=== PATIENT | female | born 1970 | race Two or more races ===

== ENCOUNTER 2017-11-26 17:26 | Inpatient (IN) | payer MEDICAID ==
[~2017-11-26] VITALS: Ht 154.9 cm; Wt 108.9 kg
[2017-11-26] MEDS ORDERED: NEXIUM40 MG ORAL (18:07)
[2017-11-26] MEDS ORDERED: XARELTO10 MG ORAL ×2 (18:07→18:45)
[2017-11-26] MEDS ORDERED: METOPROLOL TART50 M1 ORAL (18:07)
[2017-11-26] MEDS ORDERED: GABAPENTIN800 MG ORAL (18:07)
[2017-11-26] MEDS ORDERED: Morphine Sulfate 4mg/ml Inj IVP ONE ×2 (18:15→22:30)
[2017-11-26 18:30] VITALS: BP 103/88
[2017-11-26] MEDS ORDERED: GABAPENTIN400 MG ORAL (18:43)
[2017-11-26] MEDS ORDERED: TYLENOL EXTRA500 MG ORAL (18:46)
[2017-11-26 20:53] LABS: ALANINE AMINOTRANSFERASE 20 U/L (12-78); ALBUMIN 2.7 G/DL (3.4-5.0); ALBUMIN/GLOBULIN RATIO 0.7 (1.0-2.7); ALKALINE PHOSPHATASE 79 U/L (46-116); ANION GAP 12 mmol/L (5-15); ASPARTATE AMINO TRANSFERASE 59 U/L (15-37); BILIRUBIN,TOTAL 0.4 MG/DL (0.2-1.0); BLOOD UREA NITROGEN 13 mg/dL (7-18); CARBON DIOXIDE 22 MMOL/L (21-32); CHLORIDE 105 MMOL/L (98-107); CKMB < 0.5 NG/ML (0.0-3.6); CREATINE KINASE 175 U/L (26-308); CREATININE 0.7 MG/DL (0.55-1.30); SODIUM 138 MMOL/L (136-145)
[2017-11-26 20:55] LABS: POTASSIUM 5.9 MMOL/L (3.5-5.1)
[2017-11-26 21:00] VITALS: BP 105/85
[2017-11-26 21:01] LABS: BASOPHILS % (AUTO) 1.4 % (0.0-2.0); EOSINOPHILS % (AUTO) 2.5 % (0.0-3.0); HEMATOCRIT 31.4 % (37.0-47.0); HEMOGLOBIN 9.8 G/DL (12.0-16.0); MEAN CORPUSCULAR VOLUME 73 FL (80-99); MONOCYTES % (AUTO) 7.1 % (1.0-10.0); PLATELET COUNT 330 K/UL (150-450); RED BLOOD COUNT 4.29 M/UL (4.20-5.40); RED CELL DISTRIBUTION WIDTH 16.6 % (11.6-14.8); WHITE BLOOD COUNT 10.2 K/UL (4.8-10.8)
[2017-11-26] MEDS ORDERED: Zolpidem 5mg tab ORAL PRN (21:45)
[2017-11-26] MEDS ORDERED: Heparin 25,000u/D5W 500ml 500 ML IV SCH (21:45)
[2017-11-26] MEDS ORDERED: Mylanta II UD 30ml ORAL PRN (21:45)
[2017-11-26] MEDS ORDERED: Miralax 17gm pkt ORAL PRN (21:45)
[2017-11-26] MEDS ORDERED: LORazepam Inj 2mg/ml 1ml IV PRN (21:45)
[2017-11-26] MEDS ORDERED: Acetaminophen 500mg (ES) tab ORAL PRN (21:45)
--- NOTE | 2017-11-26 22:04 | Emergency Room Report ---
History of Present Illness General Chief Complaint: Pain Source: Patient Present Illness HPI 47-year-old female presents ED for evaluation. States she's been having chest pain and left calf pain for the last 5 days. Sharp, 05/31, nonradiating. Patient has history of DVT and PE. On Xarelto. States she is compliant with her medications. Patient recently moved here from [place] and does not have a PMD. No other aggravating relieving factors. Denies any other associated symptoms Allergies: Coded Allergies: AMOXICILLIN (Verified Allergy, Unknown, 11/26/17) ASPIRIN (Verified Allergy, Unknown, 11/26/17) AZITHROMYCIN (Verified Allergy, Unknown, 11/26/17) CEPHALEXIN (Verified Allergy, Unknown, 11/26/17) CLAVULANIC ACID (Verified Allergy, Unknown, 11/26/17) IBUPROFEN (Verified Allergy, Unknown, 11/26/17) NSAIDS (NON-STEROIDAL ANTI-INFLAMMA (Verified Allergy, Unknown, 11/26/17) TRAMADOL (Verified Allergy, Unknown, 11/26/17) Patient History Past Medical History: none Past Surgical History: none Pertinent Family History: none Social History: Denies: smoking, alcohol use, drug use Last Menstrual Period: Week and a half ago Now: No Immunizations: UTD Reviewed Nursing Documentation: PMH: Agreed, PSxH: Agreed Review of Systems All Other Systems: negative except mentioned in HPI Physical Exam Vital Signs Date Time Temp Pulse Resp B/P (MAP) Pulse Ox O2 Delivery O2 Flow Rate FiO2 11/26/17 17:34 97.9 98 18 116/83 100 Room Air Sp02 EP Interpretation: reviewed, normal General Appearance: no apparent distress, alert, GCS 15, non-toxic Head: normocephalic, atraumatic Eyes: bilateral eye normal inspection, bilateral eye PERRL ENT: hearing grossly normal, normal pharynx, no angioedema, normal voice Neck: full range of motion, supple/symm/no masses Respiratory: chest non-tender, lungs clear, normal breath sounds, speaking full sentences Cardiovascular #1: regular rate, rhythm, no edema Cardiovascular #2: 2+ carotid (R), 2+ carotid (L), 2+ radial (R), 2+ radial (L) , 2+ dorsalis pedis (R), 2+ dorsalis pedis (L) Gastrointestinal: normal bowel sounds, non tender, soft, non-distended, no guarding, no rebound Rectal: deferred Genitourinary: normal inspection, no CVA tenderness Musculoskeletal: back normal, gait/station normal, normal range of motion, non- tender Neurologic: alert, oriented x3, responsive, motor strength/tone normal, sensory intact, speech normal Psychiatric: judgement/insight normal, memory normal, mood/affect normal, no suicidal/homicidal ideation Reflexes: 3+ bicep (R), 3+ bicep (L), 3+ tricep (R), 3+ tricep (L), 3+ knee (R) , 3+ knee (L) Skin: normal color, no rash, warm/dry, well hydrated Lymphatic: no adenopathy Medical Decision Making Diagnostic Impression: Primary Impression: DVT (deep venous thrombosis) Qualified Codes: I82.402 - Acute embolism and thrombosis of unspecified deep veins of left lower extremity Additional Impression: Shortness of breath ER Course Hospital Course 47-year-old female presents ED complaining of SOB. LLE pain. h/o PE and DVT Differential diagnoses include: CO/unstable angina, PE, bronchitis, asthma Clinical course Patient placed on stretcher. on property assessment monitor. After initial history and physical I ordered labs, EKG, chest x-ray, LLE Doppler labs reviewed- no leukocytosis, hemoglobin/hematocrit stable, electrolytes ok, troponins negative Chest x-ray- LLL effusion EKG - NSR, no acute ischemic changes interpretd by me Doppler US shows evidence of acute and chronic DVT in LLE Patient unable to tolerate CTA Heparin drip started Case discussed with Dr. Worrell and he agreed to accept the patient to his service for further care and support I. I feel this is a highly complex case requiring extensive working including EKG/Rhythm strip, Xray/CT/US, Blood/urine lab work, repeat exams while in ED, and administration of strong opiates/narcotics for pain control, admission to hospital or close patient follow up. Diagnosis - DVT, SOB admitted to telemetry in serious condition Labs Test 11/26/17 19:55 11/26/17 20:50 Sodium Level 138 MMOL/L (136-145) Potassium Level 5.9 MMOL/L (3.5-5.1) Chloride Level 105 MMOL/L (98-107) Carbon Dioxide Level 22 MMOL/L (21-32) Anion Gap 12 mmol/L (5-15) Blood Urea Nitrogen 13 mg/dL (7-18) Creatinine 0.7 MG/DL (0.55-1.30) Estimat Glomerular Filtration Rate > 60 mL/min (>60) Glucose Level 80 MG/DL (74-106) Calcium Level 8.0 MG/DL (8.5-10.1) Total Bilirubin 0.4 MG/DL (0.2-1.0) Aspartate Amino Transf (AST/SGOT) 59 U/L (15-37) Alanine Aminotransferase (ALT/SGPT) 20 U/L (12-78) Alkaline Phosphatase 79 U/L (46-116) Total Creatine Kinase 175 U/L (26-308) Creatine Kinase MB < 0.5 NG/ML (0.0-3.6) Creatine Kinase MB Relative Index 0.2 Troponin I 0.000 ng/mL (0.000-0.056) Pro-B-Type Natriuretic Peptide 471 pg/mL (0-125) Total Protein 6.8 G/DL (6.4-8.2) Albumin 2.7 G/DL (3.4-5.0) Globulin 4.1 g/dL Albumin/Globulin Ratio 0.7 (1.0-2.7) White Blood Count 10.2 K/UL (4.8-10.8) Red Blood Count 4.29 M/UL (4.20-5.40) Hemoglobin 9.8 G/DL (12.0-16.0) Hematocrit 31.4 % (37.0-47.0) Mean Corpuscular Volume 73 FL (80-99) Mean Corpuscular Hemoglobin 22.9 PG (27.0-31.0) Mean Corpuscular Hemoglobin Concent 31.3 G/DL (32.0-36.0) Red Cell Distribution Width 16.6 % (11.6-14.8) Platelet Count 330 K/UL (150-450) Mean Platelet Volume 5.7 FL (6.5-10.1) Neutrophils (%) (Auto) 52.0 % (45.0-75.0) Lymphocytes (%) (Auto) 37.0 % (20.0-45.0) Monocytes (%) (Auto) 7.1 % (1.0-10.0) Eosinophils (%) (Auto) 2.5 % (0.0-3.0) Basophils (%) (Auto) 1.4 % (0.0-2.0) EKG Diagnostic Results Rate: normal Rhythm: NSR ST Segments: no acute changes ASA given to the pt in ED: No Rhythm Strip Diag. Results EP Interpretation: yes Rhythm: NSR, no PVC's, no ectopy Chest X-Ray Diagnostic Results Chest X-Ray Diagnostic Results : Chest X-Ray Ordered: Yes # of Views/Limited/Complete: 1 View Indication: Shortness of Breath EP Interpretation: Yes Interpretation: no pneumothorax, other - L sided effusion Impression: Other - L effusion Electronically Signed by: Electronically signed by Danny Chacon MD Last Vital Signs Date Time Temp Pulse Resp B/P (MAP) Pulse Ox O2 Delivery O2 Flow Rate FiO2 11/26/17 18:30 97.9 92 14 103/88 98 Room Air Status: improved Disposition: ADMITTED INPATIENT Condition: Serious Referrals: NOT CHOSEN BRIAN/,REFERRING (PCP) DANNY CHACON M.D. Nov 26, 2017 22:04
[2017-11-26 22:45] VITALS: BP 102/85
[2017-11-26 23:16] LABS: INR 0.9 (0.9-1.1)
[2017-11-27 00:30] VITALS: BP 136/89
[2017-11-27] MEDS ORDERED: Norco 5mg/325mg tab ORAL PRN (04:45)
[2017-11-27] MEDS: Morphine Sulfate 4mg/ml Inj IVP PRN ×5 (04:56→21:49)
[2017-11-27 08:00] VITALS: BP 107/70
[2017-11-27 08:53] LABS: BASOPHILS % (AUTO) 1.2 % (0.0-2.0); EOSINOPHILS % (AUTO) 4.4 % (0.0-3.0); HEMATOCRIT 27.7 % (37.0-47.0); HEMOGLOBIN 8.7 G/DL (12.0-16.0); MEAN CORPUSCULAR VOLUME 73 FL (80-99); MONOCYTES % (AUTO) 9.4 % (1.0-10.0); PLATELET COUNT 248 K/UL (150-450); RED BLOOD COUNT 3.77 M/UL (4.20-5.40); RED CELL DISTRIBUTION WIDTH 16.5 % (11.6-14.8); WHITE BLOOD COUNT 6.6 K/UL (4.8-10.8)
[2017-11-27] MEDS: Metoprolol Tartrate 50mg tab ORAL SCH (09:29)
--- NOTE | 2017-11-27 09:31 | Diagnostic Imaging Report ---
Indication: Chest pain, shortness of breath Technique: One view of the chest Comparison: None Findings: There is left perihilar, bilateral basilar, retrocardiac infiltrate. There is questionably retrocardiac hiatal hernia. The heart size is normal. Impression: Left lung infiltrates, likely pneumonia Possible retrocardiac hiatal hernia
[2017-11-27] MEDS: Heparin 25,000u/D5W 500ml 500 ML IV SCH ×3 (09:49→13:18)
[2017-11-27] MEDS ORDERED: Heparin 5000 units/ml inj IV ONE (10:00)
[2017-11-27 10:07] LABS: ALANINE AMINOTRANSFERASE 22 U/L (12-78); ALBUMIN 2.8 G/DL (3.4-5.0); ALBUMIN/GLOBULIN RATIO 0.7 (1.0-2.7); ALKALINE PHOSPHATASE 78 U/L (46-116); ANION GAP 9 mmol/L (5-15); ASPARTATE AMINO TRANSFERASE 19 U/L (15-37); BILIRUBIN,TOTAL 0.3 MG/DL (0.2-1.0); BLOOD UREA NITROGEN 10 mg/dL (7-18); CALCIUM 8.6 MG/DL (8.5-10.1); CARBON DIOXIDE 24 MMOL/L (21-32); CHLORIDE 104 MMOL/L (98-107); CHOLESTEROL 147 MG/DL (< 200); CREATININE 0.9 MG/DL (0.55-1.30); HDL CHOLESTEROL 56 MG/DL (40-60); SODIUM 137 MMOL/L (136-145); TRIGLYCERIDES 106 MG/DL (30-150)
--- NOTE | 2017-11-27 11:35 | Diagnostic Imaging Report ---
APPROVED REPORT CPT Code: 85467 Present Symptoms Comments: Technically difficult study due to patient body habitus. Thigh and calf area. Past History DVT : RIGHT LEG: Venous imaging reveals a patent deep venous system. There is no evidence of thrombus within the femoral, popliteal or tibial segments. The greater saphenous vein is also within normal limits. Doppler indicates normal spontaneous flow within these segments. LEFT LEG: Venous imaging reveals acute thrombus in the mid superficial femoral vein. Imaging also reveals chronic thrombus in the superficial femoral to popliteal veins. Large collateral vein noted anteriorto the superficial femoral artery. Remainder of the deep venous system within normal limits. No evidence of thrombus in the common and calf veins. Greater saphenous vein also within normal limits. Dr. Chacon was notified of abnormal results at 20.30 hours.
--- NOTE | 2017-11-27 13:02 | History and Physical ---
History of Present Illness General Date patient seen: Nov 27, 2017 Reason for Hospitalization: Pain Present Illness HPI 47-year-old female with hx of PE, DVT on Xarelto, presented to ED for evaluation of chest pain and left calf pain for the last 5 days. States she is compliant with her medications. No other aggravating relieving factors. Denies any other associated symptoms. Venous doppler of legs showed acute on chronic thrombus. She is admitted for further evaluation. Allergies: Coded Allergies: AMOXICILLIN (Verified Allergy, Unknown, 11/26/17) ASPIRIN (Verified Allergy, Unknown, 11/26/17) AZITHROMYCIN (Verified Allergy, Unknown, 11/26/17) CEPHALEXIN (Verified Allergy, Unknown, 11/26/17) CLAVULANIC ACID (Verified Allergy, Unknown, 11/26/17) IBUPROFEN (Verified Allergy, Unknown, 11/26/17) NSAIDS (NON-STEROIDAL ANTI-INFLAMMA (Verified Allergy, Unknown, 11/26/17) TRAMADOL (Verified Allergy, Unknown, 11/26/17) Medication History Scheduled Esomeprazole Magnesium (Nexium), 40 MG ORAL DAILY, (Reported) Gabapentin* (Gabapentin*), 1,200 MG ORAL THREE TIMES A DAY, (Reported) Metoprolol Tartrate* (Metoprolol Tartrate*), 50 MG ORAL DAILY, (Reported) Rivaroxaban (Xarelto*), 10 MG ORAL DAILY, (Reported) Scheduled PRN Acetaminophen* (Tylenol Extra Strength*), 1,000 MG ORAL Q6H PRN for Mild Pain/ Temp > 100.5, (Reported) Patient History Healthcare decision maker Resuscitation status Advanced Directive on File No Past Medical/Surgical History Past Medical/Surgical History: (1) DVT (deep venous thrombosis) Review of Systems All Other Systems: negative except mentioned in HPI Physical Exam General Appearance: WD/WN Lines, tubes and drains: peripheral HEENT: normocephalic, atraumatic Neck: non-tender, normal alignment Respiratory/Chest: chest wall non-tender, lungs clear Breasts: no masses Cardiovascular/Chest: normal peripheral pulses Abdomen: normal bowel sounds Last 24 Hour Vital Signs Date Time Temp Pulse Resp B/P (MAP) Pulse Ox O2 Delivery O2 Flow Rate FiO2 11/27/17 09:29 91 136/89 11/27/17 04:00 91 11/27/17 00:30 98.3 98 18 136/89 94 Room Air 11/26/17 23:45 95 16 102/85 98 Room Air 11/26/17 22:45 95 16 102/85 95 Room Air 11/26/17 21:00 95 14 105/85 96 Room Air 11/26/17 18:30 97.9 92 14 103/88 98 Room Air 11/26/17 17:34 97.9 98 18 116/83 100 Room Air Intake and Output 11/26/17 11/27/17 19:00 07:00 Intake Total 1333 ml Balance 1333 ml Intake Oral 1060 ml IV Total 273 ml # Voids 3 # Bowel Movements 1 Laboratory Tests Test 11/26/17 19:55 11/26/17 20:50 11/26/17 22:57 11/27/17 07:10 Sodium Level 138 MMOL/L (136-145) 137 MMOL/L (136-145) Potassium Level 5.9 MMOL/L (3.5-5.1) H 4.0 MMOL/L (3.5-5.1) Chloride Level 105 MMOL/L (98-107) 104 MMOL/L (98-107) Carbon Dioxide Level 22 MMOL/L (21-32) 24 MMOL/L (21-32) Anion Gap 12 mmol/L (5-15) 9 mmol/L (5-15) Blood Urea Nitrogen 13 mg/dL (7-18) 10 mg/dL (7-18) Creatinine 0.7 MG/DL (0.55-1.30) 0.9 MG/DL (0.55-1.30) Estimat Glomerular Filtration Rate > 60 mL/min (>60) > 60 mL/min (>60) Glucose Level 80 MG/DL (74-106) 104 MG/DL (74-106) Calcium Level 8.0 MG/DL (8.5-10.1) L 8.6 MG/DL (8.5-10.1) Total Bilirubin 0.4 MG/DL (0.2-1.0) 0.3 MG/DL (0.2-1.0) Aspartate Amino Transf (AST/SGOT) 59 U/L (15-37) H 19 U/L (15-37) Alanine Aminotransferase (ALT/SGPT) 20 U/L (12-78) 22 U/L (12-78) Alkaline Phosphatase 79 U/L (46-116) 78 U/L (46-116) Total Creatine Kinase 175 U/L (26-308) Creatine Kinase MB < 0.5 NG/ML (0.0-3.6) Creatine Kinase MB Relative Index 0.2 Troponin I 0.000 ng/mL (0.000-0.056) Pro-B-Type Natriuretic Peptide 471 pg/mL (0-125) H Total Protein 6.8 G/DL (6.4-8.2) 6.9 G/DL (6.4-8.2) Albumin 2.7 G/DL (3.4-5.0) L 2.8 G/DL (3.4-5.0) L Globulin 4.1 g/dL 4.1 g/dL Albumin/Globulin Ratio 0.7 (1.0-2.7) L 0.7 (1.0-2.7) L White Blood Count 10.2 K/UL (4.8-10.8) 6.6 K/UL (4.8-10.8) Red Blood Count 4.29 M/UL (4.20-5.40) 3.77 M/UL (4.20-5.40) L Hemoglobin 9.8 G/DL (12.0-16.0) L 8.7 G/DL (12.0-16.0) L Hematocrit 31.4 % (37.0-47.0) L 27.7 % (37.0-47.0) L Mean Corpuscular Volume 73 FL (80-99) L 73 FL (80-99) L Mean Corpuscular Hemoglobin 22.9 PG (27.0-31.0) L 23.1 PG (27.0-31.0) L Mean Corpuscular Hemoglobin Concent 31.3 G/DL (32.0-36.0) L 31.5 G/DL (32.0-36.0) L Red Cell Distribution Width 16.6 % (11.6-14.8) H 16.5 % (11.6-14.8) H Platelet Count 330 K/UL (150-450) 248 K/UL (150-450) Mean Platelet Volume 5.7 FL (6.5-10.1) L 5.4 FL (6.5-10.1) L Neutrophils (%) (Auto) 52.0 % (45.0-75.0) 36.0 % (45.0-75.0) L Lymphocytes (%) (Auto) 37.0 % (20.0-45.0) 49.0 % (20.0-45.0) H Monocytes (%) (Auto) 7.1 % (1.0-10.0) 9.4 % (1.0-10.0) Eosinophils (%) (Auto) 2.5 % (0.0-3.0) 4.4 % (0.0-3.0) H Basophils (%) (Auto) 1.4 % (0.0-2.0) 1.2 % (0.0-2.0) Prothrombin Time 9.7 SEC (9.30-11.50) Prothromb Time International Ratio 0.9 (0.9-1.1) Activated Partial Thromboplast Time 26 SEC (23-33) 45 SEC (23-33) H Triglycerides Level 106 MG/DL (30-150) Cholesterol Level 147 MG/DL (< 200) LDL Cholesterol 90 mg/dL (<100) HDL Cholesterol 56 MG/DL (40-60) Cholesterol/HDL Ratio 2.6 (3.3-4.4) L Height (Feet): 5 Height (Inches): 1.00 Weight (Pounds): 240 Medications Current Medications Medications (Trade) Dose Ordered Sig/Kike Route PRN Reason Start Time Stop Time Status Last Admin Dose Admin Acetaminophen (Tylenol) 1,000 mg Q6H PRN ORAL Mild Pain/Temp > 100.5 11/26/17 21:45 12/26/17 21:44 Acetaminophen/ Hydrocodone Bitart ([place] 5/325) 1 tab Q6H PRN ORAL pain 4-6 11/27/17 04:45 12/04/17 04:44 Al Hydroxide/Mg Hydroxide (Mylanta II) 30 ml Q6H PRN ORAL dyspepsia 11/26/17 21:45 12/26/17 21:44 Dextrose (Dextrose 50%) STAT PRN IV Hypoglycemia 11/26/17 21:45 12/26/17 21:44 Gabapentin (Neurontin) 1,200 mg THREE TIMES A DAY ORAL 11/27/17 09:00 12/27/17 08:59 11/27/17 09:28 Heparin Sodium/ Dextrose 500 ml @ 47.899 mls/ hr adjust per protocol IV 11/26/17 21:45 12/26/17 21:44 11/27/17 09:49 Iron Sucrose 100 mg/Sodium Chloride 60 ml @ 240 mls/hr BEDTIME IV 11/27/17 21:00 12/01/17 21:14 Lorazepam (Ativan 2mg/ml 1ml) 0.5 mg Q4H PRN IV For Anxiety 11/26/17 21:45 12/03/17 21:44 Metoprolol Tartrate (Lopressor) 50 mg DAILY ORAL 11/27/17 09:00 12/27/17 08:59 11/27/17 09:29 Morphine Sulfate (Morphine Sulfate) 4 mg Q4H PRN IVP 7-10 11/27/17 04:45 12/04/17 04:44 11/27/17 09:30 Ondansetron HCl (Zofran) 4 mg Q6H PRN IVP Nausea & Vomiting 11/26/17 21:45 12/26/17 21:44 Polyethylene Glycol (Miralax) 17 gm HSPRN PRN ORAL Constipation 11/26/17 21:45 12/26/17 21:44 Warfarin Sodium (Coumadin per pharmacy) 1 ea DAILY@1700 PRN MISC WARFARIN PER RX 11/27/17 10:45 12/27/17 10:44 Warfarin Sodium (Coumadin) 7.5 mg COUMADIN ONCE ORAL 11/27/17 17:00 11/27/17 17:01 Zolpidem Tartrate (Ambien) 5 mg HSPRN PRN ORAL Insomnia 11/26/17 21:45 12/03/17 21:44 Assessment/Plan Problem List: (1) DVT (deep venous thrombosis) ICD Codes: I82.409 - Acute embolism and thrombosis of unspecified deep veins of unspecified lower extremity SNOMED: [id number] Qualifiers: Qualified Codes: I82.402 - Acute embolism and thrombosis of unspecified deep veins of left lower extremity (2) Chest pain ICD Codes: R07.9 - Chest pain, unspecified SNOMED: [id number] Assessment/Plan CT angio to rule out PE cxr showed infiltrate. there is no WBC, no fever, will start the pt on abx and get some sputum Hematology to see, since pt failed Xarelto therapy. GORAN BROOKS Nov 27, 2017 13:02
--- NOTE | 2017-11-27 15:36 | Consultation ---
History of Present Illness General Date patient seen: Nov 27, 2017 Time patient seen: 15:36 Chief Complaint: Pain Present Illness HPI 47 y/o F with x of DVT/PE on xarelto presents to ED on 11/26 with 5 days of CP and L calf pain. V. duplex of legs showed acute on chronic thrombus. Of note, patient recently moved from [place]. +cough Allergies: Coded Allergies: AMOXICILLIN (Verified Allergy, Unknown, 11/26/17) ASPIRIN (Verified Allergy, Unknown, 11/26/17) AZITHROMYCIN (Verified Allergy, Unknown, 11/26/17) CEPHALEXIN (Verified Allergy, Unknown, 11/26/17) CLAVULANIC ACID (Verified Allergy, Unknown, 11/26/17) IBUPROFEN (Verified Allergy, Unknown, 11/26/17) NSAIDS (NON-STEROIDAL ANTI-INFLAMMA (Verified Allergy, Unknown, 11/26/17) TRAMADOL (Verified Allergy, Unknown, 11/26/17) Medication History Scheduled Esomeprazole Magnesium (Nexium), 40 MG ORAL DAILY, (Reported) Gabapentin* (Gabapentin*), 1,200 MG ORAL THREE TIMES A DAY, (Reported) Metoprolol Tartrate* (Metoprolol Tartrate*), 50 MG ORAL DAILY, (Reported) Rivaroxaban (Xarelto*), 10 MG ORAL DAILY, (Reported) Scheduled PRN Acetaminophen* (Tylenol Extra Strength*), 1,000 MG ORAL Q6H PRN for Mild Pain/ Temp > 100.5, (Reported) Patient History Healthcare decision maker Resuscitation status Advanced Directive on File No Patient History Narrative PMHx as above SHx: Denies: smoking, alcohol use, drug use FHx: non contributory Review of Systems All Other Systems: negative except mentioned in HPI Physical Exam Physical Exam Narrative General Appearance: WD/WN Lines, tubes and drains: peripheral HEENT: normocephalic, atraumatic Neck: non-tender, normal alignment Respiratory/Chest: chest wall non-tender, L lung crackles and ronchi Breasts: no masses Cardiovascular/Chest: normal peripheral pulses Abdomen: normal bowel sounds Last 24 Hour Vital Signs Date Time Temp Pulse Resp B/P (MAP) Pulse Ox O2 Delivery O2 Flow Rate FiO2 11/27/17 09:29 91 136/89 11/27/17 04:00 91 11/27/17 00:30 98.3 98 18 136/89 94 Room Air 11/26/17 23:45 95 16 102/85 98 Room Air 11/26/17 22:45 95 16 102/85 95 Room Air 11/26/17 21:00 95 14 105/85 96 Room Air 11/26/17 18:30 97.9 92 14 103/88 98 Room Air 11/26/17 17:34 97.9 98 18 116/83 100 Room Air Intake and Output 11/26/17 11/27/17 19:00 07:00 Intake Total 1333 ml Balance 1333 ml Intake Oral 1060 ml IV Total 273 ml # Voids 3 # Bowel Movements 1 Laboratory Tests Test 11/26/17 19:55 11/26/17 20:50 11/26/17 22:57 11/27/17 07:10 Sodium Level 138 MMOL/L (136-145) 137 MMOL/L (136-145) Potassium Level 5.9 MMOL/L (3.5-5.1) H 4.0 MMOL/L (3.5-5.1) Chloride Level 105 MMOL/L (98-107) 104 MMOL/L (98-107) Carbon Dioxide Level 22 MMOL/L (21-32) 24 MMOL/L (21-32) Anion Gap 12 mmol/L (5-15) 9 mmol/L (5-15) Blood Urea Nitrogen 13 mg/dL (7-18) 10 mg/dL (7-18) Creatinine 0.7 MG/DL (0.55-1.30) 0.9 MG/DL (0.55-1.30) Estimat Glomerular Filtration Rate > 60 mL/min (>60) > 60 mL/min (>60) Glucose Level 80 MG/DL (74-106) 104 MG/DL (74-106) Calcium Level 8.0 MG/DL (8.5-10.1) L 8.6 MG/DL (8.5-10.1) Total Bilirubin 0.4 MG/DL (0.2-1.0) 0.3 MG/DL (0.2-1.0) Aspartate Amino Transf (AST/SGOT) 59 U/L (15-37) H 19 U/L (15-37) Alanine Aminotransferase (ALT/SGPT) 20 U/L (12-78) 22 U/L (12-78) Alkaline Phosphatase 79 U/L (46-116) 78 U/L (46-116) Total Creatine Kinase 175 U/L (26-308) Creatine Kinase MB < 0.5 NG/ML (0.0-3.6) Creatine Kinase MB Relative Index 0.2 Troponin I 0.000 ng/mL (0.000-0.056) Pro-B-Type Natriuretic Peptide 471 pg/mL (0-125) H Total Protein 6.8 G/DL (6.4-8.2) 6.9 G/DL (6.4-8.2) Albumin 2.7 G/DL (3.4-5.0) L 2.8 G/DL (3.4-5.0) L Globulin 4.1 g/dL 4.1 g/dL Albumin/Globulin Ratio 0.7 (1.0-2.7) L 0.7 (1.0-2.7) L White Blood Count 10.2 K/UL (4.8-10.8) 6.6 K/UL (4.8-10.8) Red Blood Count 4.29 M/UL (4.20-5.40) 3.77 M/UL (4.20-5.40) L Hemoglobin 9.8 G/DL (12.0-16.0) L 8.7 G/DL (12.0-16.0) L Hematocrit 31.4 % (37.0-47.0) L 27.7 % (37.0-47.0) L Mean Corpuscular Volume 73 FL (80-99) L 73 FL (80-99) L Mean Corpuscular Hemoglobin 22.9 PG (27.0-31.0) L 23.1 PG (27.0-31.0) L Mean Corpuscular Hemoglobin Concent 31.3 G/DL (32.0-36.0) L 31.5 G/DL (32.0-36.0) L Red Cell Distribution Width 16.6 % (11.6-14.8) H 16.5 % (11.6-14.8) H Platelet Count 330 K/UL (150-450) 248 K/UL (150-450) Mean Platelet Volume 5.7 FL (6.5-10.1) L 5.4 FL (6.5-10.1) L Neutrophils (%) (Auto) 52.0 % (45.0-75.0) 36.0 % (45.0-75.0) L Lymphocytes (%) (Auto) 37.0 % (20.0-45.0) 49.0 % (20.0-45.0) H Monocytes (%) (Auto) 7.1 % (1.0-10.0) 9.4 % (1.0-10.0) Eosinophils (%) (Auto) 2.5 % (0.0-3.0) 4.4 % (0.0-3.0) H Basophils (%) (Auto) 1.4 % (0.0-2.0) 1.2 % (0.0-2.0) Prothrombin Time 9.7 SEC (9.30-11.50) Prothromb Time International Ratio 0.9 (0.9-1.1) Activated Partial Thromboplast Time 26 SEC (23-33) 45 SEC (23-33) H Triglycerides Level 106 MG/DL (30-150) Cholesterol Level 147 MG/DL (< 200) LDL Cholesterol 90 mg/dL (<100) HDL Cholesterol 56 MG/DL (40-60) Cholesterol/HDL Ratio 2.6 (3.3-4.4) L Height (Feet): 5 Height (Inches): 1.00 Weight (Pounds): 240 Medications Current Medications Medications (Trade) Dose Ordered Sig/Kike Route PRN Reason Start Time Stop Time Status Last Admin Dose Admin Acetaminophen (Tylenol) 1,000 mg Q6H PRN ORAL Mild Pain/Temp > 100.5 11/26/17 21:45 12/26/17 21:44 Acetaminophen/ Hydrocodone Bitart ([place] 5/325) 1 tab Q6H PRN ORAL pain 4-6 11/27/17 04:45 12/04/17 04:44 Al Hydroxide/Mg Hydroxide (Mylanta II) 30 ml Q6H PRN ORAL dyspepsia 11/26/17 21:45 12/26/17 21:44 Dextrose (Dextrose 50%) STAT PRN IV Hypoglycemia 11/26/17 21:45 12/26/17 21:44 Gabapentin (Neurontin) 1,200 mg THREE TIMES A DAY ORAL 11/27/17 09:00 12/27/17 08:59 11/27/17 13:09 Heparin Sodium/ Dextrose 500 ml @ 47.899 mls/ hr adjust per protocol IV 11/26/17 21:45 12/26/17 21:44 11/27/17 13:18 Iron Sucrose 100 mg/Sodium Chloride 60 ml @ 240 mls/hr BEDTIME IV 11/27/17 21:00 12/01/17 21:14 Levofloxacin 100 ml @ 100 mls/hr Q24H IVPB 11/27/17 14:00 12/04/17 13:59 11/27/17 15:09 Lorazepam (Ativan 2mg/ml 1ml) 0.5 mg Q4H PRN IV For Anxiety 11/26/17 21:45 12/03/17 21:44 Metoprolol Tartrate (Lopressor) 50 mg DAILY ORAL 11/27/17 09:00 12/27/17 08:59 11/27/17 09:29 Morphine Sulfate (Morphine Sulfate) 4 mg Q4H PRN IVP 7-10 11/27/17 04:45 12/04/17 04:44 11/27/17 13:11 Ondansetron HCl (Zofran) 4 mg Q6H PRN IVP Nausea & Vomiting 11/26/17 21:45 12/26/17 21:44 Polyethylene Glycol (Miralax) 17 gm HSPRN PRN ORAL Constipation 11/26/17 21:45 12/26/17 21:44 Warfarin Sodium (Coumadin per pharmacy) 1 ea DAILY@1700 PRN MISC WARFARIN PER RX 11/27/17 10:45 12/27/17 10:44 Warfarin Sodium (Coumadin) 7.5 mg COUMADIN ONCE ORAL 11/27/17 17:00 11/27/17 17:01 Zolpidem Tartrate (Ambien) 5 mg HSPRN PRN ORAL Insomnia 11/26/17 21:45 12/03/17 21:44 Assessment/Plan Assessment/Plan Abx: Levaquin 11/27- Assessment: Acute on chronic L DVT -v/ duplex: RIGHT LEG: No DVT. LEFT LEG: Venous imaging reveals acute thrombus in the mid superficial femoral vein. Imaging also reveals chronic thrombus in the superficial femoral to popliteal veins. Large collateral vein noted anteriorto the superficial femoral artery. Remainder of the deep venous system within normal limits. No evidence of thrombus in the common and calf veins. Greater saphenous vein also within normal limits. PNA -CXR: Left lung infiltrates, likely pneumonia. Possible retrocardiac hiatal hernia Afebrile, no leukocytosis hx of DVT/PE on xarelto Plan: -Continue levaquin #1/5 -f/u cx -[place] CBC/BMP, temperatures Thank you for this consultation. Will continue to follow along with you. Discussed with MARY ALICE. Amanda Adams M.D. Nov 27, 2017 15:36
[2017-11-27 16:41] LABS: FERRITIN 11 NG/ML (8-388); LACTATE DEHYDROGENASE 186 U/L (81-234)
[2017-11-27] MEDS ORDERED: Warfarin Sodium 7.5mg ORAL ONE (17:00)
[2017-11-27 17:27] LABS: % IRON SATURATION 6 % (15-50); IRON 22 ug/dL (50-175); TOTAL IRON BINDING CAPACITY 356 ug/dL (250-450)
[2017-11-27] MEDS ORDERED: Heparin 25,000u/D5W 500ml 500 ML IV SCH (18:05)
[2017-11-27 20:00] VITALS: BP 95/55
[2017-11-27] MEDS: Iron Sucrose 100 MG in NS 55 ML IV SCH (20:50)
--- NOTE | 2017-11-27 22:30 | Consultation ---
DATE OF CONSULTATION: 11/27/2017 HEMATOLOGY/ONCOLOGY CONSULTATION CONSULTING PHYSICIAN: Herberth Manzanares M.D. REQUESTING PHYSICIAN: Mich Worrell M.D. REASON FOR CONSULTATION: Evaluation of anemia as well as history of DVT as well as pulmonary embolism. IDENTIFYING DATA: Dear Dr. Worrell, The patient is a pleasant 47-year-old female with past medical history significant for pulmonary embolism and DVT, at this time presents with left lower extremity pain as well as shortness of breath and in the ER, she was noted to have chest pain for the past several days. There is a history of DVT and pulmonary embolism and has been on Coumadin. She states that she has been compliant on her medications. She recently moved from does not have a PMD, and no alleviating or aggravating features noted. Hematology service was consulted for further evaluation and treatment. PAST MEDICAL HISTORY: As noted above. PAST SURGICAL HISTORY: None reported. ALLERGIES: Amoxicillin, aspirin, Zithromax, Keflex, . SOCIAL HISTORY: No alcohol, tobacco, or illicit drug use. Last menstrual period approximately week and a half ago. FAMILY HISTORY: Noncontributory for any . REVIEW OF SYSTEMS: CONSTITUTIONAL: No fever, chills, or night sweats. SKIN: No rashes, bumps, or itching. HEENT: No headache, hearing or vision changes. BREASTS: No lumps, pain, or discharge. PULMONARY: No cough, sputum, or shortness of breath. GASTROINTESTINAL: No nausea, vomiting, or diarrhea. GENITOURINARY: No dysuria, frequency, or urgency. MUSCULOSKELETAL: No joint swelling, muscle pain, or trauma. PHYSICAL EXAMINATION: VITAL SIGNS: Reviewed. GENERAL: The patient is in no acute distress. PULMONARY: Decreased breath sounds. CARDIOVASCULAR: Regular rate. No S3 or S4. ABDOMEN: Soft, nontender, and nondistended. EXTREMITIES: A 1+ edema. LABORATORY DATA: PTT . BUN 10 and creatinine . ASSESSMENT AND PLAN: 1. Acute deep venous thrombosis of the left lower extremity. Begin the patient on heparin drip as well as Coumadin. The patient at this time appeared to have progressed on Xarelto. This is a fairly common finding. At this time, continue the patient on heparin as well as Coumadin. Closely monitor the patient's anemia to make sure if the patient does not have a contraindication for anticoagulation. Again, closely monitor the patient's anemia to make sure if the patient does not have a contraindication for anticoagulation. 2. Pulmonary embolism history. She has been on Xarelto, currently progressed. Begin the patient on Coumadin and heparin. 3. Anemia due to underlying chronic disease. 4. Anemia due to likely iron deficiency. Begin workup likely iron deficiency. 5. Shortness of breath likely due to history of anxiety as well as history of pulmonary embolism. 6. Coagulopathy due to heparin drip. 7. Bronchitis. 8. Asthma. I appreciate the consultation. Herberth Manzanares M.D. DR: SHRUTI JOB#: [id number] CC:
[2017-11-28] VITALS: BP 112/66
[2017-11-28] MEDS: Morphine Sulfate 4mg/ml Inj IVP PRN ×6 (01:53→22:28)
[2017-11-28] MEDS ORDERED: Heparin 5000 units/ml inj IV ONE (02:15)
[2017-11-28] MEDS: Heparin 25,000u/D5W 500ml 500 ML IV SCH ×2 (02:15→13:58)
[2017-11-28 04:00] VITALS: BP_SYST 112; BP_SYST 98; BP_DIAS 61; BP_DIAS 68
[2017-11-28 08:00] VITALS: BP 123/68
[2017-11-28] MEDS: Metoprolol Tartrate 50mg tab ORAL SCH (09:25)
--- NOTE | 2017-11-28 13:12 | Pulmonology Progress Note ---
Assessment/Plan Problems: (1) DVT (deep venous thrombosis) (2) Chest pain Assessment/Plan on coumadin and heparin doing better dc planning once inr is therapeutic Subjective ROS Limited/Unobtainable: No Allergies: Coded Allergies: AMOXICILLIN (Verified Allergy, Unknown, 11/26/17) ASPIRIN (Verified Allergy, Unknown, 11/26/17) AZITHROMYCIN (Verified Allergy, Unknown, 11/26/17) CEPHALEXIN (Verified Allergy, Unknown, 11/26/17) CLAVULANIC ACID (Verified Allergy, Unknown, 11/26/17) IBUPROFEN (Verified Allergy, Unknown, 11/26/17) NSAIDS (NON-STEROIDAL ANTI-INFLAMMA (Verified Allergy, Unknown, 11/26/17) TRAMADOL (Verified Allergy, Unknown, 11/26/17) Objective Last 24 Hour Vital Signs Date Time Temp Pulse Resp B/P (MAP) Pulse Ox O2 Delivery O2 Flow Rate FiO2 11/28/17 09:25 91 123/68 11/28/17 08:00 90 11/28/17 08:00 97.6 97 22 123/68 97 Room Air 11/28/17 04:00 98.2 87 20 98/68 94 Room Air 11/28/17 04:00 91 11/28/17 00:00 93 11/28/17 00:00 98.1 79 18 112/66 95 Room Air 11/27/17 20:00 92 11/27/17 20:00 97.9 96 20 95/55 95 Room Air 11/27/17 16:00 102 Intake and Output 11/27/17 11/28/17 19:00 07:00 Intake Total 480 ml 610.130 ml Balance 480 ml 610.130 ml Intake Oral 480 ml IV Total 610.130 ml # Voids 3 2 Objective General Appearance: WD/WN, other - obtunded Lines, tubes and drains: peripheral HEENT: normocephalic, atraumatic Neck: non-tender, normal alignment Respiratory/Chest: chest wall non-tender, lungs clear Breasts: no masses, no discharge Cardiovascular/Chest: normal peripheral pulses Abdomen: normal bowel sounds Genitourinary/Rectal: normal genital exam Extremities: normal range of motion Skin Exam: normal pigmentation Neurologic: roguer II-XII grossly normal Laboratory Tests 11/27/17 15:15: Reticulocyte Count 1.0, Activated Partial Thromboplast Time > 150*H, Uric Acid 7.2, Iron Level 22L, Total Iron Binding Capacity 356, Percent Iron Saturation 6L , Unsaturated Iron Binding 334, Soluble Transferrin Receptor [Pending], Ferritin 11, Lactate Dehydrogenase 186, Vitamin B12 Level 423, Folate 11.4, Thyroid Stimulating Hormone (TSH) 3.625, Human Chorionic Gonadotropin, Qual Negative 11/28/17 01:05: Activated Partial Thromboplast Time 63H 11/28/17 08:38: Activated Partial Thromboplast Time 78H, Prothrombin Time 10.4, Prothromb Time International Ratio 1.0 Current Medications Medications (Trade) Dose Ordered Sig/Kike Route PRN Reason Start Time Stop Time Status Last Admin Dose Admin Acetaminophen (Tylenol) 1,000 mg Q6H PRN ORAL Mild Pain/Temp > 100.5 11/26/17 21:45 12/26/17 21:44 Acetaminophen/ Hydrocodone Bitart ([place] 5/325) 1 tab Q6H PRN ORAL pain 4-6 11/27/17 04:45 12/04/17 04:44 Al Hydroxide/Mg Hydroxide (Mylanta II) 30 ml Q6H PRN ORAL dyspepsia 11/26/17 21:45 12/26/17 21:44 Dextrose (Dextrose 50%) STAT PRN IV Hypoglycemia 11/26/17 21:45 12/26/17 21:44 Gabapentin (Neurontin) 1,200 mg THREE TIMES A DAY ORAL 11/27/17 09:00 12/27/17 08:59 11/28/17 09:24 Heparin Sodium/ Dextrose 500 ml @ 43.545 mls/ hr adjust per protocol IV 11/28/17 02:15 12/27/17 18:04 11/28/17 02:15 Iron Sucrose 100 mg/Sodium Chloride 60 ml @ 240 mls/hr BEDTIME IV 11/27/17 21:00 12/01/17 21:14 11/27/17 20:50 Levofloxacin 100 ml @ 100 mls/hr Q24H IVPB 11/27/17 14:00 12/04/17 13:59 11/27/17 15:09 Lorazepam (Ativan 2mg/ml 1ml) 0.5 mg Q4H PRN IV For Anxiety 11/26/17 21:45 12/03/17 21:44 Metoprolol Tartrate (Lopressor) 50 mg DAILY ORAL 11/27/17 09:00 12/27/17 08:59 11/28/17 09:25 Morphine Sulfate (Morphine Sulfate) 4 mg Q4H PRN IVP 7-10 11/27/17 04:45 12/04/17 04:44 11/28/17 10:01 Ondansetron HCl (Zofran) 4 mg Q6H PRN IVP Nausea & Vomiting 11/26/17 21:45 12/26/17 21:44 Pantoprazole (Protonix) 40 mg DAILY ORAL 11/28/17 09:45 12/28/17 09:44 11/28/17 10:00 Polyethylene Glycol (Miralax) 17 gm HSPRN PRN ORAL Constipation 11/26/17 21:45 12/26/17 21:44 Warfarin Sodium (Coumadin per pharmacy) 1 ea DAILY@1700 PRN MISC WARFARIN PER RX 11/27/17 10:45 12/27/17 10:44 Warfarin Sodium (Coumadin) 7.5 mg COUMADIN ONCE ORAL 11/28/17 17:00 11/28/17 17:01 Zolpidem Tartrate (Ambien) 5 mg HSPRN PRN ORAL Insomnia 11/26/17 21:45 12/03/17 21:44 GORAN BROOKS Nov 28, 2017 13:12
--- NOTE | 2017-11-28 13:34 | Infectious Diseases Prog Note ---
Assessment/Plan Assessment/Plan Abx: Levaquin 2/- Assessment: Acute on chronic L DVT -v/ duplex: RIGHT LEG: No DVT. LEFT LEG: Venous imaging reveals acute thrombus in the mid superficial femoral vein. Imaging also reveals chronic thrombus in the superficial femoral to popliteal veins. Large collateral vein noted anteriorto the superficial femoral artery. Remainder of the deep venous system within normal limits. No evidence of thrombus in the common and calf veins. Greater saphenous vein also within normal limits. L lung infiltrates- likely PNA (+cough) ;r/o PE -CXR: Left lung infiltrates, likely pneumonia. Possible retrocardiac hiatal hernia Afebrile, no leukocytosis hx of DVT/PE on xarelto Plan: -Continue LEvaquin #2/5 for PNA -f/u CTA Chest -obtain sputum cx -f/u cx -[place] CBC/BMP, temperatures Thank you for this consultation. Will continue to follow along with you. Discussed with RN. Subjective Allergies: Coded Allergies: AMOXICILLIN (Verified Allergy, Unknown, 11/26/17) ASPIRIN (Verified Allergy, Unknown, 11/26/17) AZITHROMYCIN (Verified Allergy, Unknown, 11/26/17) CEPHALEXIN (Verified Allergy, Unknown, 11/26/17) CLAVULANIC ACID (Verified Allergy, Unknown, 11/26/17) IBUPROFEN (Verified Allergy, Unknown, 11/26/17) NSAIDS (NON-STEROIDAL ANTI-INFLAMMA (Verified Allergy, Unknown, 11/26/17) TRAMADOL (Verified Allergy, Unknown, 11/26/17) Subjective afebrile coughing. Objective Vital Signs Last 24 Hour Vital Signs Date Time Temp Pulse Resp B/P (MAP) Pulse Ox O2 Delivery O2 Flow Rate FiO2 11/28/17 09:25 91 123/68 11/28/17 08:00 90 11/28/17 08:00 97.6 97 22 123/68 97 Room Air 11/28/17 04:00 98.2 87 20 98/68 94 Room Air 11/28/17 04:00 91 11/28/17 00:00 93 11/28/17 00:00 98.1 79 18 112/66 95 Room Air 11/27/17 20:00 92 11/27/17 20:00 97.9 96 20 95/55 95 Room Air 11/27/17 16:00 102 Height (Feet): 5 Height (Inches): 1.00 Weight (Pounds): 240 Objective General Appearance: WD/WN Lines, tubes and drains: peripheral HEENT: normocephalic, atraumatic Neck: non-tender, normal alignment Respiratory/Chest: chest wall non-tender, L lung crackles.ronchi Breasts: no masses Cardiovascular/Chest: normal peripheral pulses Abdomen: normal bowel sounds Laboratory Tests Test 11/27/17 15:15 11/28/17 01:05 11/28/17 08:38 Reticulocyte Count 1.0 % (0.0-2.0) Activated Partial Thromboplast Time > 150 SEC (23-33) *H 63 SEC (23-33) H 78 SEC (23-33) H Uric Acid 7.2 MG/DL (2.6-7.2) Iron Level 22 ug/dL (50-175) L Total Iron Binding Capacity 356 ug/dL (250-450) Percent Iron Saturation 6 % (15-50) L Unsaturated Iron Binding 334 ug/dL (112-346) Soluble Transferrin Receptor Pending Ferritin 11 NG/ML (8-388) Lactate Dehydrogenase 186 U/L (81-234) Vitamin B12 Level 423 PG/ML (193-986) Folate 11.4 NG/ML (8.6-58.9) Thyroid Stimulating Hormone (TSH) 3.625 uiU/mL (0.358-3.740) Human Chorionic Gonadotropin, Qual Negative Prothrombin Time 10.4 SEC (9.30-11.50) Prothromb Time International Ratio 1.0 (0.9-1.1) Current Medications Medications (Trade) Dose Ordered Sig/Kike Route PRN Reason Start Time Stop Time Status Last Admin Dose Admin Acetaminophen (Tylenol) 1,000 mg Q6H PRN ORAL Mild Pain/Temp > 100.5 11/26/17 21:45 12/26/17 21:44 Acetaminophen/ Hydrocodone Bitart ([place] 5/325) 1 tab Q6H PRN ORAL pain 4-6 11/27/17 04:45 12/04/17 04:44 Al Hydroxide/Mg Hydroxide (Mylanta II) 30 ml Q6H PRN ORAL dyspepsia 11/26/17 21:45 12/26/17 21:44 Dextrose (Dextrose 50%) STAT PRN IV Hypoglycemia 11/26/17 21:45 12/26/17 21:44 Gabapentin (Neurontin) 1,200 mg THREE TIMES A DAY ORAL 11/27/17 09:00 12/27/17 08:59 11/28/17 09:24 Heparin Sodium/ Dextrose 500 ml @ 43.545 mls/ hr adjust per protocol IV 11/28/17 02:15 12/27/17 18:04 11/28/17 02:15 Iron Sucrose 100 mg/Sodium Chloride 60 ml @ 240 mls/hr BEDTIME IV 11/27/17 21:00 12/01/17 21:14 11/27/17 20:50 Levofloxacin 100 ml @ 100 mls/hr Q24H IVPB 11/27/17 14:00 12/04/17 13:59 11/27/17 15:09 Lorazepam (Ativan 2mg/ml 1ml) 0.5 mg Q4H PRN IV For Anxiety 11/26/17 21:45 12/03/17 21:44 Metoprolol Tartrate (Lopressor) 50 mg DAILY ORAL 11/27/17 09:00 12/27/17 08:59 11/28/17 09:25 Morphine Sulfate (Morphine Sulfate) 4 mg Q4H PRN IVP 7-10 11/27/17 04:45 12/04/17 04:44 11/28/17 10:01 Ondansetron HCl (Zofran) 4 mg Q6H PRN IVP Nausea & Vomiting 11/26/17 21:45 12/26/17 21:44 Pantoprazole (Protonix) 40 mg DAILY ORAL 11/28/17 09:45 12/28/17 09:44 11/28/17 10:00 Polyethylene Glycol (Miralax) 17 gm HSPRN PRN ORAL Constipation 11/26/17 21:45 12/26/17 21:44 Warfarin Sodium (Coumadin per pharmacy) 1 ea DAILY@1700 PRN MISC WARFARIN PER RX 11/27/17 10:45 12/27/17 10:44 Warfarin Sodium (Coumadin) 7.5 mg COUMADIN ONCE ORAL 11/28/17 17:00 11/28/17 17:01 Zolpidem Tartrate (Ambien) 5 mg HSPRN PRN ORAL Insomnia 11/26/17 21:45 12/03/17 21:44 Amanda Adams M.D. Nov 28, 2017 13:34
[2017-11-28] MEDS ORDERED: Warfarin Sodium 7.5mg ORAL ONE (17:00)
--- NOTE | 2017-11-28 17:33 | Cardiology Report ---
APPROVED REPORT EKG Measurement Heart [id number] Normal sinus rhythm Normal ECG
[2017-11-28 20:00] VITALS: BP 103/59
[2017-11-28] MEDS: Iron Sucrose 100 MG in NS 55 ML IV SCH (23:01)
--- NOTE | 2017-11-29 00:06 | General Progress Note ---
Assessment/Plan Assessment/Plan 1. Acute deep venous thrombosis of the left lower extremity. --> Begin the patient on heparin drip as well as Coumadin. -->The patient at this time appeared to have progressed on Xarelto. This is a fairly common finding. --> At this time, continue the patient on heparin as well as Coumadin. --> Closely monitor the patient's anemia to make sure if the patient does not have a contraindication for anticoagulation. 2. Pulmonary embolism history. --> She has been on Xarelto, currently progressed. Begin the patient on Coumadin and heparin. --> Again monitor closely for contraindication for anticoag. 3. Anemia due to underlying chronic disease. --> Blood transfusion not required unless symptomatic or hgb <7 4. Anemia due to likely iron deficiency. --> Begin workup likely iron deficiency. 5. Shortness of breath likely due to history of anxiety as well as history of pulmonary embolism. 6. Coagulopathy due to heparin drip. 7. Bronchitis. 8. Asthma. Subjective Date patient seen: Nov 28, 2017 Constitutional: Denies: no symptoms, chills, diaphoresis, fever, malaise, weakness, other HEENT: Denies: no symptoms, eye pain, blurred vision, tearing, double vision, ear pain, ear discharge, nose pain, nose congestion, throat pain, throat swelling, mouth pain, mouth swelling, other Cardiovascular: Denies: no symptoms, chest pain, edema, irregular heart rate, lightheadedness, palpitations, syncope, other Respiratory: Denies: no symptoms, cough, orthopnea, shortness of breath, SOB with excertion, SOB at rest, sputum, stridor, wheezing, other Gastrointestinal/Abdominal: Denies: no symptoms, abdomen distended, abdominal pain, black stools, tarry stools, blood in stool, constipated, diarrhea, difficulty swallowing, nausea, poor appetite, poor fluid intake, rectal bleeding , vomiting, other Genitourinary: Denies: no symptoms, burning, discharge, frequency, flank pain, hematuria, incontinence, pain, urgency, other Allergies: Coded Allergies: AMOXICILLIN (Verified Allergy, Unknown, 11/26/17) ASPIRIN (Verified Allergy, Unknown, 11/26/17) AZITHROMYCIN (Verified Allergy, Unknown, 11/26/17) CEPHALEXIN (Verified Allergy, Unknown, 11/26/17) CLAVULANIC ACID (Verified Allergy, Unknown, 11/26/17) IBUPROFEN (Verified Allergy, Unknown, 11/26/17) NSAIDS (NON-STEROIDAL ANTI-INFLAMMA (Verified Allergy, Unknown, 11/26/17) TRAMADOL (Verified Allergy, Unknown, 11/26/17) Subjective On anticoagulation measures for DVT. NAD. Objective Last 24 Hour Vital Signs Date Time Temp Pulse Resp B/P (MAP) Pulse Ox O2 Delivery O2 Flow Rate FiO2 11/28/17 16:00 85 11/28/17 12:00 82 11/28/17 09:25 91 123/68 11/28/17 08:00 90 11/28/17 08:00 97.6 97 22 123/68 97 Room Air 11/28/17 04:00 98.2 87 20 98/68 94 Room Air 11/28/17 04:00 91 Intake and Output 11/28/17 11/29/17 19:00 07:00 Intake Total 860 ml Balance 860 ml Intake Oral 860 ml Laboratory Tests 11/28/17 01:05: Activated Partial Thromboplast Time 63H 11/28/17 08:38: Activated Partial Thromboplast Time 78H, Prothrombin Time 10.4, Prothromb Time International Ratio 1.0 Height (Feet): 5 Height (Inches): 1.00 Weight (Pounds): 240 Herberth Manzanares Nov 29, 2017 00:06
[2017-11-29] MEDS: Morphine Sulfate 4mg/ml Inj IVP PRN ×6 (02:34→22:57)
[2017-11-29] MEDS: Heparin 25,000u/D5W 500ml 500 ML IV SCH ×2 (02:34→14:20)
[2017-11-29 04:00] VITALS: BP 123/74
[2017-11-29 07:45] VITALS: BP 114/74
[2017-11-29] MEDS: Metoprolol Tartrate 50mg tab ORAL SCH (08:03)
[2017-11-29 09:11] LABS: BASOPHILS % (AUTO) 1.1 % (0.0-2.0); EOSINOPHILS % (AUTO) 4.7 % (0.0-3.0); HEMATOCRIT 29.1 % (37.0-47.0); HEMOGLOBIN 9.1 G/DL (12.0-16.0); LYMPHOCYTES % (AUTO) 47.5 % (20.0-45.0); MEAN CORPUSCULAR VOLUME 74 FL (80-99); MONOCYTES % (AUTO) 10.8 % (1.0-10.0); NEUTROPHILS % (AUTO) 35.8 % (45.0-75.0); PLATELET COUNT 226 K/UL (150-450); RED BLOOD COUNT 3.94 M/UL (4.20-5.40); RED CELL DISTRIBUTION WIDTH 16.6 % (11.6-14.8); WHITE BLOOD COUNT 5.2 K/UL (4.8-10.8)
[2017-11-29 10:46] LABS: ANION GAP 5 mmol/L (5-15); BLOOD UREA NITROGEN 10 mg/dL (7-18); CALCIUM 8.4 MG/DL (8.5-10.1); CARBON DIOXIDE 26 MMOL/L (21-32); CHLORIDE 105 MMOL/L (98-107); POTASSIUM 4.3 MMOL/L (3.5-5.1); SODIUM 136 MMOL/L (136-145)
[2017-11-29 10:59] LABS: ALANINE AMINOTRANSFERASE 103 U/L (12-78); ALBUMIN 2.5 G/DL (3.4-5.0); ALBUMIN/GLOBULIN RATIO 0.6 (1.0-2.7); ALKALINE PHOSPHATASE 125 U/L (46-116); ASPARTATE AMINO TRANSFERASE 199 U/L (15-37); BILIRUBIN,TOTAL 0.3 MG/DL (0.2-1.0)
[2017-11-29 12:00] VITALS: BP 101/64
[2017-11-29] MEDS ORDERED: Warfarin Sodium 10mg ORAL ONE (17:00)
--- NOTE | 2017-11-29 17:03 | Pulmonology Progress Note ---
Assessment/Plan Problems: (1) DVT (deep venous thrombosis) (2) Chest pain Assessment/Plan on coumadin and heparin doing better dc planning once inr is therapeutic INR has not moved yet Subjective ROS Limited/Unobtainable: No Constitutional: Reports: no symptoms HEENT: Repors: no symptoms Respiratory: Reports: no symptoms Allergies: Coded Allergies: AMOXICILLIN (Verified Allergy, Unknown, 11/26/17) ASPIRIN (Verified Allergy, Unknown, 11/26/17) AZITHROMYCIN (Verified Allergy, Unknown, 11/26/17) CEPHALEXIN (Verified Allergy, Unknown, 11/26/17) CLAVULANIC ACID (Verified Allergy, Unknown, 11/26/17) IBUPROFEN (Verified Allergy, Unknown, 11/26/17) NSAIDS (NON-STEROIDAL ANTI-INFLAMMA (Verified Allergy, Unknown, 11/26/17) TRAMADOL (Verified Allergy, Unknown, 11/26/17) Objective Last 24 Hour Vital Signs Date Time Temp Pulse Resp B/P (MAP) Pulse Ox O2 Delivery O2 Flow Rate FiO2 11/29/17 15:26 99.0 11/29/17 12:00 99.0 81 20 101/64 97 Room Air 11/29/17 11:47 80 11/29/17 08:03 95 114/74 11/29/17 07:45 98.0 95 20 114/74 97 Room Air 11/29/17 07:38 86 11/29/17 04:00 98.0 86 20 123/74 97 Room Air 11/29/17 04:00 86 11/28/17 23:51 86 11/28/17 20:00 99.5 89 20 103/59 91 Room Air 11/28/17 20:00 90 Intake and Output 11/28/17 11/29/17 19:00 07:00 Intake Total 860 ml 740.265 ml Balance 860 ml 740.265 ml Intake Oral 860 ml IV Total 740.265 ml # Voids 4 Objective General Appearance: WD/WN, other - obtunded Lines, tubes and drains: peripheral HEENT: normocephalic, atraumatic Neck: non-tender, normal alignment Respiratory/Chest: chest wall non-tender, lungs clear Breasts: no masses, no discharge Cardiovascular/Chest: normal peripheral pulses Abdomen: normal bowel sounds Genitourinary/Rectal: normal genital exam Extremities: normal range of motion Skin Exam: normal pigmentation Neurologic: emerging technologies director II-XII grossly normal Laboratory Tests 11/29/17 03:30: White Blood Count 5.2, Red Blood Count 3.94L, Hemoglobin 9.1L, Hematocrit 29.1L , Mean Corpuscular Volume 74L, Mean Corpuscular Hemoglobin 23.1L, Mean Corpuscular Hemoglobin Concent 31.2L, Red Cell Distribution Width 16.6H, Platelet Count 226, Mean Platelet Volume 5.8L, Neutrophils (%) (Auto) 35.8L, Lymphocytes (%) (Auto) 47.5H, Monocytes (%) (Auto) 10.8H, Eosinophils (%) (Auto ) 4.7H, Basophils (%) (Auto) 1.1, Prothrombin Time 10.9, Prothromb Time International Ratio 1.0, Activated Partial Thromboplast Time 72H 11/29/17 10:05: Sodium Level 136, Potassium Level 4.3, Chloride Level 105, Carbon Dioxide Level 26, Anion Gap 5, Blood Urea Nitrogen 10, Creatinine 1.0, Estimat Glomerular Filtration Rate > 60, Glucose Level 104, Calcium Level 8.4L, Total Bilirubin 0.3 , Aspartate Amino Transf (AST/SGOT) 199H, Alanine Aminotransferase (ALT/SGPT) 103H, Alkaline Phosphatase 125H, Total Protein 6.7, Albumin 2.5L, Globulin 4.2, Albumin/Globulin Ratio 0.6L Current Medications Medications (Trade) Dose Ordered Sig/Kike Route PRN Reason Start Time Stop Time Status Last Admin Dose Admin Acetaminophen (Tylenol) 1,000 mg Q6H PRN ORAL Mild Pain/Temp > 100.5 11/26/17 21:45 12/26/17 21:44 Acetaminophen/ Hydrocodone Bitart ([place] 5/325) 1 tab Q6H PRN ORAL pain 4-6 11/27/17 04:45 12/04/17 04:44 Al Hydroxide/Mg Hydroxide (Mylanta II) 30 ml Q6H PRN ORAL dyspepsia 11/26/17 21:45 12/26/17 21:44 Dextrose (Dextrose 50%) STAT PRN IV Hypoglycemia 11/26/17 21:45 12/26/17 21:44 Gabapentin (Neurontin) 1,200 mg THREE TIMES A DAY ORAL 11/29/17 18:00 12/29/17 17:59 11/29/17 16:57 Heparin Sodium/ Dextrose 500 ml @ 43.545 mls/ hr adjust per protocol IV 11/28/17 02:15 12/27/17 18:04 11/29/17 14:20 Iron Sucrose 100 mg/Sodium Chloride 60 ml @ 240 mls/hr BEDTIME IV 11/27/17 21:00 12/01/17 21:14 11/27/17 20:50 Levofloxacin (Levaquin) 500 mg DAILY ORAL 11/30/17 09:00 12/07/17 08:59 Lorazepam (Ativan 2mg/ml 1ml) 0.5 mg Q4H PRN IV For Anxiety 11/26/17 21:45 12/03/17 21:44 Metoprolol Tartrate (Lopressor) 50 mg DAILY ORAL 11/27/17 09:00 12/27/17 08:59 11/29/17 08:03 Morphine Sulfate (Morphine Sulfate) 4 mg Q4H PRN IVP 7-10 11/27/17 04:45 12/04/17 04:44 11/29/17 14:56 Ondansetron HCl (Zofran) 4 mg Q6H PRN IVP Nausea & Vomiting 11/26/17 21:45 12/26/17 21:44 11/29/17 14:59 Pantoprazole (Protonix) 40 mg DAILY ORAL 11/28/17 09:45 12/28/17 09:44 11/29/17 08:02 Polyethylene Glycol (Miralax) 17 gm HSPRN PRN ORAL Constipation 11/26/17 21:45 12/26/17 21:44 Warfarin Sodium (Coumadin per pharmacy) 1 ea DAILY@1700 PRN MISC WARFARIN PER RX 11/27/17 10:45 12/27/17 10:44 Zolpidem Tartrate (Ambien) 5 mg HSPRN PRN ORAL Insomnia 11/26/17 21:45 12/03/17 21:44 GORAN BROOKS Nov 29, 2017 17:02
[2017-11-29 17:09] VITALS: BP 110/61
--- NOTE | 2017-11-29 17:22 | Diagnostic Imaging Report ---
Indication: Shortness of breath Technique: CT pulmonary angiogram performed utilizing automated exposure control with intravenous contrast. Axial, sagittal and coronal reconstructions were obtained. 3-D volumetric reconstructions were also performed. CT dose: Total DLP 1269.45 mGycm; CTDI vol 40.83 mGy Comparison: None Findings: Suboptimal contrast opacification as well as significant patient motion renders exam nondiagnostic for evaluation of segmental and subsegmental pulmonary emboli. No saddle or large main pulmonary embolism. Main pulmonary artery appears normal in caliber. Thoracic aorta is normal in caliber. There is linear atelectasis or consolidation along the fissure in the left lung. Dependent atelectatic changes are noted. There is linear scarring or subsegmental atelectasis in the right lower lobe. Heart size within normal limits. No pericardial effusion. No hilar or mediastinal adenopathy. Thyroid unremarkable. There is a large hiatal hernia containing the majority of the stomach. There is no evidence to suggest obstruction. Imaged portions of the upper abdomen are otherwise grossly unremarkable. Degenerative changes in the spine. Apparent abnormality of the sternum likely artifactual related to patient motion. No acute osseous abnormality seen. IMPRESSION: Exam significantly degraded by patient motion. No saddle or large central pulmonary embolism. Suboptimal contrast opacification and patient motion renders exam nondiagnostic for segmental and subsegmental pulmonary bladder. Linear consolidation or atelectasis in the left midlung. Large hiatal hernia. The CT scanner at [facility] is accredited by the [employer] and the scans are performed using protocols designed to limit radiation exposure to as low as reasonably achievable to attain images of sufficient resolution adequate for diagnostic evaluation.
[2017-11-29] MEDS: Iron Sucrose 100 MG in NS 55 ML IV SCH (21:00)
--- NOTE | 2017-11-29 23:57 | General Progress Note ---
Assessment/Plan Assessment/Plan 1. Acute deep venous thrombosis of the left lower extremity. --> Begin the patient on heparin drip as well as Coumadin. INR goal bt 2 and 3 -->The patient at this time appeared to have progressed on Xarelto. This is a fairly common finding. --> Closely monitor the patient's anemia to make sure if the patient does not have a contraindication for anticoagulation. 2. Pulmonary embolism history. --> She has been on Xarelto, currently progressed. Begin the patient on Coumadin and heparin. --> Again monitor closely for contraindication for anticoag. 3. Anemia due to underlying chronic disease. --> Blood transfusion not required unless symptomatic or hgb <7 --> Trend cbc daily. 4. Anemia due to likely iron deficiency. --> Begin workup likely iron deficiency. 5. Shortness of breath likely due to history of anxiety as well as history of pulmonary embolism. 6. Coagulopathy due to heparin drip. 7. Bronchitis. 8. Asthma. Subjective Date patient seen: Nov 29, 2017 Allergies: Coded Allergies: AMOXICILLIN (Verified Allergy, Unknown, 11/26/17) ASPIRIN (Verified Allergy, Unknown, 11/26/17) AZITHROMYCIN (Verified Allergy, Unknown, 11/26/17) CEPHALEXIN (Verified Allergy, Unknown, 11/26/17) CLAVULANIC ACID (Verified Allergy, Unknown, 11/26/17) IBUPROFEN (Verified Allergy, Unknown, 11/26/17) NSAIDS (NON-STEROIDAL ANTI-INFLAMMA (Verified Allergy, Unknown, 11/26/17) TRAMADOL (Verified Allergy, Unknown, 11/26/17) Subjective On anticoagulation measures for DVT. No new events overnight. Objective Last 24 Hour Vital Signs Date Time Temp Pulse Resp B/P (MAP) Pulse Ox O2 Delivery O2 Flow Rate FiO2 11/29/17 17:09 99.0 72 20 110/61 97 Room Air 11/29/17 15:42 81 11/29/17 15:26 99.0 11/29/17 12:00 99.0 81 20 101/64 97 Room Air 11/29/17 11:47 80 11/29/17 08:03 95 114/74 11/29/17 07:45 98.0 95 20 114/74 97 Room Air 11/29/17 07:38 86 11/29/17 04:00 98.0 86 20 123/74 97 Room Air 11/29/17 04:00 86 Intake and Output 11/28/17 11/29/17 19:00 07:00 Intake Total 860 ml 740.265 ml Balance 860 ml 740.265 ml Intake Oral 860 ml IV Total 740.265 ml # Voids 4 Laboratory Tests 11/29/17 03:30: White Blood Count 5.2, Red Blood Count 3.94L, Hemoglobin 9.1L, Hematocrit 29.1L , Mean Corpuscular Volume 74L, Mean Corpuscular Hemoglobin 23.1L, Mean Corpuscular Hemoglobin Concent 31.2L, Red Cell Distribution Width 16.6H, Platelet Count 226, Mean Platelet Volume 5.8L, Neutrophils (%) (Auto) 35.8L, Lymphocytes (%) (Auto) 47.5H, Monocytes (%) (Auto) 10.8H, Eosinophils (%) (Auto ) 4.7H, Basophils (%) (Auto) 1.1, Prothrombin Time 10.9, Prothromb Time International Ratio 1.0, Activated Partial Thromboplast Time 72H 11/29/17 10:05: Sodium Level 136, Potassium Level 4.3, Chloride Level 105, Carbon Dioxide Level 26, Anion Gap 5, Blood Urea Nitrogen 10, Creatinine 1.0, Estimat Glomerular Filtration Rate > 60, Glucose Level 104, Calcium Level 8.4L, Total Bilirubin 0.3 , Aspartate Amino Transf (AST/SGOT) 199H, Alanine Aminotransferase (ALT/SGPT) 103H, Alkaline Phosphatase 125H, Total Protein 6.7, Albumin 2.5L, Globulin 4.2, Albumin/Globulin Ratio 0.6L Height (Feet): 5 Height (Inches): 1.00 Weight (Pounds): 240 Herberth Manzanares Nov 29, 2017 23:57
[2017-11-30] MEDS: Heparin 25,000u/D5W 500ml 500 ML IV SCH ×3 (02:55→15:37)
[2017-11-30] MEDS: Morphine Sulfate 4mg/ml Inj IVP PRN ×5 (02:56→20:04)
[2017-11-30 04:52] LABS: INR 1.2 (0.9-1.1)
[2017-11-30 08:00] VITALS: BP 109/78
[2017-11-30] MEDS: Metoprolol Tartrate 50mg tab ORAL SCH (08:53)
[2017-11-30] MEDS: Levofloxacin 500mg tab ORAL SCH (08:53)
--- NOTE | 2017-11-30 11:40 | Infectious Diseases Prog Note ---
Assessment/Plan Assessment/Plan A: Acute on chronic L DVT -v/ duplex: RIGHT LEG: No DVT. LEFT LEG: Venous imaging reveals acute thrombus in the mid superficial femoral vein. Imaging also reveals chronic thrombus in the superficial femoral to popliteal veins. Large collateral vein noted anteriorto the superficial femoral artery. Remainder of the deep venous system within normal limits. No evidence of thrombus in the common and calf veins. Greater saphenous vein also within normal limits. L lung infiltrates- likely PNA (+cough) ;r/o PE CT: Linear consolidation or atelectasis in the left midlung. -CXR: Left lung infiltrates, likely pneumonia. Possible retrocardiac hiatal hernia Afebrile, no leukocytosis Transaminitis ro Biliary disease hx of DVT/PE on xarelto Plan: -Continue Levaquin # 4 /5 for PNA - US of Abd ro biliary disease -Montior CBC/BMP, temperatures Subjective Constitutional: Denies: no symptoms, fever, chills, fatigue, anorexia, drenching sweats, other Allergies: Coded Allergies: AMOXICILLIN (Verified Allergy, Unknown, 11/26/17) ASPIRIN (Verified Allergy, Unknown, 11/26/17) AZITHROMYCIN (Verified Allergy, Unknown, 11/26/17) CEPHALEXIN (Verified Allergy, Unknown, 11/26/17) CLAVULANIC ACID (Verified Allergy, Unknown, 11/26/17) IBUPROFEN (Verified Allergy, Unknown, 11/26/17) NSAIDS (NON-STEROIDAL ANTI-INFLAMMA (Verified Allergy, Unknown, 11/26/17) TRAMADOL (Verified Allergy, Unknown, 11/26/17) Objective Vital Signs Last 24 Hour Vital Signs Date Time Temp Pulse Resp B/P (MAP) Pulse Ox O2 Delivery O2 Flow Rate FiO2 11/30/17 08:53 85 109/78 11/30/17 08:00 98.1 85 20 109/78 95 Room Air 11/30/17 08:00 91 11/30/17 07:52 99.0 11/30/17 04:00 82 11/29/17 23:51 88 11/29/17 19:58 82 11/29/17 17:09 99.0 72 20 110/61 97 Room Air 11/29/17 15:42 81 11/29/17 12:00 99.0 81 20 101/64 97 Room Air 11/29/17 11:47 80 Height (Feet): 5 Height (Inches): 1.00 Weight (Pounds): 240 HEENT: anicteric Respiratory/Chest: no respiratory distress Cardiovascular: regularly irregular Abdomen: no organomegaly Laboratory Tests Test 11/30/17 03:30 Prothrombin Time 12.5 SEC (9.30-11.50) H Prothromb Time International Ratio 1.2 (0.9-1.1) H Activated Partial Thromboplast Time 98 SEC (23-33) H Current Medications Medications (Trade) Dose Ordered Sig/Kike Route PRN Reason Start Time Stop Time Status Last Admin Dose Admin Acetaminophen (Tylenol) 1,000 mg Q6H PRN ORAL Mild Pain/Temp > 100.5 11/26/17 21:45 12/26/17 21:44 Acetaminophen/ Hydrocodone Bitart ([place] 5/325) 1 tab Q6H PRN ORAL pain 4-6 11/27/17 04:45 12/04/17 04:44 Al Hydroxide/Mg Hydroxide (Mylanta II) 30 ml Q6H PRN ORAL dyspepsia 11/26/17 21:45 12/26/17 21:44 Dextrose (Dextrose 50%) STAT PRN IV Hypoglycemia 11/26/17 21:45 12/26/17 21:44 Gabapentin (Neurontin) 1,200 mg THREE TIMES A DAY ORAL 11/29/17 18:00 12/29/17 17:59 11/30/17 08:53 Heparin Sodium/ Dextrose 500 ml @ 39.19 mls/ hr adjust per protocol IV 11/30/17 06:00 12/27/17 18:04 11/30/17 05:55 Iron Sucrose 100 mg/Sodium Chloride 60 ml @ 240 mls/hr BEDTIME IV 11/27/17 21:00 12/01/17 21:14 11/27/17 20:50 Levofloxacin (Levaquin) 500 mg DAILY ORAL 11/30/17 09:00 12/07/17 08:59 11/30/17 08:53 Lorazepam (Ativan 2mg/ml 1ml) 0.5 mg Q4H PRN IV For Anxiety 11/26/17 21:45 12/03/17 21:44 Metoprolol Tartrate (Lopressor) 50 mg DAILY ORAL 11/27/17 09:00 12/27/17 08:59 11/30/17 08:53 Morphine Sulfate (Morphine Sulfate) 4 mg Q4H PRN IVP 7-10 11/27/17 04:45 12/04/17 04:44 11/30/17 11:29 Ondansetron HCl (Zofran) 4 mg Q6H PRN IVP Nausea & Vomiting 11/26/17 21:45 12/26/17 21:44 11/30/17 07:21 Pantoprazole (Protonix) 40 mg DAILY ORAL 11/28/17 09:45 12/28/17 09:44 11/30/17 08:53 Polyethylene Glycol (Miralax) 17 gm HSPRN PRN ORAL Constipation 11/26/17 21:45 12/26/17 21:44 Warfarin Sodium (Coumadin per pharmacy) 1 ea DAILY@1700 PRN MISC WARFARIN PER RX 11/27/17 10:45 12/27/17 10:44 Zolpidem Tartrate (Ambien) 5 mg HSPRN PRN ORAL Insomnia 11/26/17 21:45 12/03/17 21:44 VARUN CALLAWAY M.D. Nov 30, 2017 11:40
[2017-11-30 12:00] VITALS: BP 108/76
--- NOTE | 2017-11-30 14:26 | Pulmonology Progress Note ---
Assessment/Plan Problems: (1) DVT (deep venous thrombosis) (2) Chest pain Assessment/Plan on coumadin and heparin doing better dc planning once inr is therapeutic INR has not moved yet Subjective ROS Limited/Unobtainable: No Constitutional: Reports: no symptoms HEENT: Repors: no symptoms Allergies: Coded Allergies: AMOXICILLIN (Verified Allergy, Unknown, 11/26/17) ASPIRIN (Verified Allergy, Unknown, 11/26/17) AZITHROMYCIN (Verified Allergy, Unknown, 11/26/17) CEPHALEXIN (Verified Allergy, Unknown, 11/26/17) CLAVULANIC ACID (Verified Allergy, Unknown, 11/26/17) IBUPROFEN (Verified Allergy, Unknown, 11/26/17) NSAIDS (NON-STEROIDAL ANTI-INFLAMMA (Verified Allergy, Unknown, 11/26/17) TRAMADOL (Verified Allergy, Unknown, 11/26/17) Objective Last 24 Hour Vital Signs Date Time Temp Pulse Resp B/P (MAP) Pulse Ox O2 Delivery O2 Flow Rate FiO2 11/30/17 12:00 78 11/30/17 12:00 98.2 79 22 108/76 97 Room Air 11/30/17 11:59 98.1 11/30/17 08:53 85 109/78 11/30/17 08:00 98.1 85 20 109/78 95 Room Air 11/30/17 08:00 91 11/30/17 04:00 82 11/29/17 23:51 88 11/29/17 19:58 82 11/29/17 17:09 99.0 72 20 110/61 97 Room Air 11/29/17 15:42 81 Intake and Output 11/29/17 11/30/17 19:00 07:00 Intake Total 1308.995 ml Output Total 200 ml Balance 1308.995 ml -200 ml Intake Oral 830 ml IV Total 478.995 ml Output Urine Total 200 ml # Voids 3 Objective General Appearance: WD/WN, other - obtunded Lines, tubes and drains: peripheral HEENT: normocephalic, atraumatic Neck: non-tender, normal alignment Respiratory/Chest: chest wall non-tender, lungs clear Breasts: no masses, no discharge Cardiovascular/Chest: normal peripheral pulses Abdomen: normal bowel sounds Genitourinary/Rectal: normal genital exam Extremities: normal range of motion Skin Exam: normal pigmentation 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 Laboratory Tests 11/30/17 03:30: Prothrombin Time 12.5H, Prothromb Time International Ratio 1.2H, Activated Partial Thromboplast Time 98H 11/30/17 12:00: Activated Partial Thromboplast Time 89H Current Medications Medications (Trade) Dose Ordered Sig/Kike Route PRN Reason Start Time Stop Time Status Last Admin Dose Admin Acetaminophen (Tylenol) 1,000 mg Q6H PRN ORAL Mild Pain/Temp > 100.5 11/26/17 21:45 12/26/17 21:44 Acetaminophen/ Hydrocodone Bitart ([place] 5/325) 1 tab Q6H PRN ORAL pain 4-6 11/27/17 04:45 12/04/17 04:44 Al Hydroxide/Mg Hydroxide (Mylanta II) 30 ml Q6H PRN ORAL dyspepsia 11/26/17 21:45 12/26/17 21:44 Dextrose (Dextrose 50%) STAT PRN IV Hypoglycemia 11/26/17 21:45 12/26/17 21:44 Gabapentin (Neurontin) 1,200 mg THREE TIMES A DAY ORAL 11/29/17 18:00 12/29/17 17:59 11/30/17 12:33 Heparin Sodium/ Dextrose 500 ml @ 39.19 mls/ hr adjust per protocol IV 11/30/17 06:00 12/27/17 18:04 11/30/17 05:55 Iron Sucrose 100 mg/Sodium Chloride 60 ml @ 240 mls/hr BEDTIME IV 11/27/17 21:00 12/01/17 21:14 11/27/17 20:50 Levofloxacin (Levaquin) 500 mg DAILY ORAL 11/30/17 09:00 12/07/17 08:59 11/30/17 08:53 Lorazepam (Ativan 2mg/ml 1ml) 0.5 mg Q4H PRN IV For Anxiety 11/26/17 21:45 12/03/17 21:44 Metoprolol Tartrate (Lopressor) 50 mg DAILY ORAL 11/27/17 09:00 12/27/17 08:59 11/30/17 08:53 Morphine Sulfate (Morphine Sulfate) 4 mg Q4H PRN IVP 7-10 11/27/17 04:45 12/04/17 04:44 11/30/17 11:29 Ondansetron HCl (Zofran) 4 mg Q6H PRN IVP Nausea & Vomiting 11/26/17 21:45 12/26/17 21:44 11/30/17 07:21 Pantoprazole (Protonix) 40 mg DAILY ORAL 11/28/17 09:45 12/28/17 09:44 11/30/17 08:53 Polyethylene Glycol (Miralax) 17 gm HSPRN PRN ORAL Constipation 11/26/17 21:45 12/26/17 21:44 Warfarin Sodium (Coumadin per pharmacy) 1 ea DAILY@1700 PRN MISC WARFARIN PER RX 11/27/17 10:45 12/27/17 10:44 Zolpidem Tartrate (Ambien) 5 mg HSPRN PRN ORAL Insomnia 11/26/17 21:45 12/03/17 21:44 GORAN BROOKS Nov 30, 2017 14:26
[2017-11-30 20:00] VITALS: BP 112/77
[2017-11-30] MEDS ORDERED: Warfarin Sodium 10mg ORAL SCH (20:30)
[2017-11-30] MEDS ORDERED: Warfarin Sodium 2.5mg ORAL SCH (20:30)
[2017-11-30] MEDS: Iron Sucrose 100 MG in NS 55 ML IV SCH (21:00)
[2017-12-01] VITALS: BP 96/60
--- NOTE | 2017-12-01 00:24 | General Progress Note ---
Assessment/Plan Assessment/Plan #. Acute deep venous thrombosis of the left lower extremity. --> Begin the patient on heparin drip as well as Coumadin. INR goal bt 2 and 3 -->The patient at this time appeared to have progressed on Xarelto. This is a fairly common finding. --> Closely monitor the patient's anemia to make sure if the patient does not have a contraindication for anticoagulation. #. Pulmonary embolism history. --> She has been on Xarelto, currently progressed. Begin the patient on Coumadin and heparin. --> Again monitor closely for contraindication for anticoag. --> INR currently 1.2 #. Anemia due to underlying chronic disease. --> Blood transfusion not required unless symptomatic or hgb <7 --> Trend cbc daily. #. Anemia due to likely iron deficiency. --> Begin workup likely iron deficiency. #. Shortness of breath likely due to history of anxiety as well as history of pulmonary embolism. #. Coagulopathy due to heparin drip. #. Bronchitis. #. Asthma. Subjective Date patient seen: Nov 30, 2017 Constitutional: Denies: no symptoms, chills, diaphoresis, fever, malaise, weakness, other HEENT: Denies: no symptoms, eye pain, blurred vision, tearing, double vision, ear pain, ear discharge, nose pain, nose congestion, throat pain, throat swelling, mouth pain, mouth swelling, other Cardiovascular: Denies: no symptoms, chest pain, edema, irregular heart rate, lightheadedness, palpitations, syncope, other Respiratory: Denies: no symptoms, cough, orthopnea, shortness of breath, SOB with excertion, SOB at rest, sputum, stridor, wheezing, other Gastrointestinal/Abdominal: Denies: no symptoms, abdomen distended, abdominal pain, black stools, tarry stools, blood in stool, constipated, diarrhea, difficulty swallowing, nausea, poor appetite, poor fluid intake, rectal bleeding , vomiting, other Genitourinary: Denies: no symptoms, burning, discharge, frequency, flank pain, hematuria, incontinence, pain, urgency, other Allergies: Coded Allergies: AMOXICILLIN (Verified Allergy, Unknown, 11/26/17) ASPIRIN (Verified Allergy, Unknown, 11/26/17) AZITHROMYCIN (Verified Allergy, Unknown, 11/26/17) CEPHALEXIN (Verified Allergy, Unknown, 11/26/17) CLAVULANIC ACID (Verified Allergy, Unknown, 11/26/17) IBUPROFEN (Verified Allergy, Unknown, 11/26/17) NSAIDS (NON-STEROIDAL ANTI-INFLAMMA (Verified Allergy, Unknown, 11/26/17) TRAMADOL (Verified Allergy, Unknown, 11/26/17) Subjective On anticoag. No new events overnight. Objective Last 24 Hour Vital Signs Date Time Temp Pulse Resp B/P (MAP) Pulse Ox O2 Delivery O2 Flow Rate FiO2 11/30/17 20:00 98.2 94 20 112/77 95 11/30/17 16:04 98.2 11/30/17 16:00 87 11/30/17 12:00 78 11/30/17 12:00 98.2 79 22 108/76 97 Room Air 11/30/17 08:53 85 109/78 11/30/17 08:00 98.1 85 20 109/78 95 Room Air 11/30/17 08:00 91 11/30/17 04:00 82 Intake and Output 11/30/17 12/01/17 19:00 07:00 Intake Total 850 ml Balance 850 ml Intake Oral 850 ml Laboratory Tests 11/30/17 03:30: Prothrombin Time 12.5H, Prothromb Time International Ratio 1.2H, Activated Partial Thromboplast Time 98H 11/30/17 12:00: Activated Partial Thromboplast Time 89H Height (Feet): 5 Height (Inches): 1.00 Weight (Pounds): 240 Herberth Manzanares Dec 01, 2017 00:24
[2017-12-01] MEDS: Morphine Sulfate 4mg/ml Inj IVP PRN ×5 (00:25→16:39)
[2017-12-01 04:00] VITALS: BP 109/66
[2017-12-01] MEDS: Heparin 25,000u/D5W 500ml 500 ML IV SCH (06:41)
[2017-12-01 08:00] VITALS: BP 134/74
[2017-12-01 08:18] LABS: BASOPHILS % (AUTO) 0.7 % (0.0-2.0); EOSINOPHILS % (AUTO) 4.7 % (0.0-3.0); HEMATOCRIT 27.9 % (37.0-47.0); HEMOGLOBIN 8.8 G/DL (12.0-16.0); LYMPHOCYTES % (AUTO) 40.1 % (20.0-45.0); MEAN CORPUSCULAR VOLUME 74 FL (80-99); MONOCYTES % (AUTO) 12.9 % (1.0-10.0); NEUTROPHILS % (AUTO) 41.7 % (45.0-75.0); PLATELET COUNT 307 K/UL (150-450); RED BLOOD COUNT 3.77 M/UL (4.20-5.40); RED CELL DISTRIBUTION WIDTH 16.7 % (11.6-14.8); WHITE BLOOD COUNT 5.8 K/UL (4.8-10.8)
[2017-12-01] MEDS: Metoprolol Tartrate 50mg tab ORAL SCH (08:35)
[2017-12-01] MEDS: Levofloxacin 500mg tab ORAL SCH (08:35)
[2017-12-01 08:39] LABS: ALANINE AMINOTRANSFERASE 84 U/L (12-78); ALBUMIN 2.7 G/DL (3.4-5.0); ALBUMIN/GLOBULIN RATIO 0.6 (1.0-2.7); ALKALINE PHOSPHATASE 155 U/L (46-116); ANION GAP 7 mmol/L (5-15); ASPARTATE AMINO TRANSFERASE 50 U/L (15-37); BILIRUBIN,TOTAL 0.2 MG/DL (0.2-1.0); BLOOD UREA NITROGEN 12 mg/dL (7-18); CALCIUM 8.6 MG/DL (8.5-10.1); CARBON DIOXIDE 26 MMOL/L (21-32); CHLORIDE 103 MMOL/L (98-107); CREATININE 1.5 MG/DL (0.55-1.30); POTASSIUM 4.3 MMOL/L (3.5-5.1); SODIUM 136 MMOL/L (136-145)
[2017-12-01] MEDS ORDERED: Enoxaparin 150mg Inj SUBQ SCH (10:15)
--- NOTE | 2017-12-01 10:18 | Pulmonology Progress Note ---
Assessment/Plan Problems: (1) DVT (deep venous thrombosis) (2) Chest pain Assessment/Plan on coumadin and heparin doing better dc planning once inr is therapeutic change heparin to lovenox if ok with pharmacy INR has not moved yet Subjective ROS Limited/Unobtainable: No Allergies: Coded Allergies: AMOXICILLIN (Verified Allergy, Unknown, 11/26/17) ASPIRIN (Verified Allergy, Unknown, 11/26/17) AZITHROMYCIN (Verified Allergy, Unknown, 11/26/17) CEPHALEXIN (Verified Allergy, Unknown, 11/26/17) CLAVULANIC ACID (Verified Allergy, Unknown, 11/26/17) IBUPROFEN (Verified Allergy, Unknown, 11/26/17) NSAIDS (NON-STEROIDAL ANTI-INFLAMMA (Verified Allergy, Unknown, 11/26/17) TRAMADOL (Verified Allergy, Unknown, 11/26/17) Objective Last 24 Hour Vital Signs Date Time Temp Pulse Resp B/P (MAP) Pulse Ox O2 Delivery O2 Flow Rate FiO2 12/01/17 09:05 97.9 12/01/17 08:35 90 134/74 12/01/17 08:00 91 12/01/17 08:00 97.9 90 18 134/74 95 12/01/17 04:00 97.0 96 20 109/66 91 12/01/17 04:00 95 12/01/17 00:00 97.3 98 20 96/60 91 12/01/17 00:00 91 11/30/17 20:00 98.2 94 20 112/77 95 11/30/17 20:00 91 11/30/17 16:00 87 11/30/17 12:00 78 11/30/17 12:00 98.2 79 22 108/76 97 Room Air Intake and Output 11/30/17 12/01/17 19:00 07:00 Intake Total 1006.76 ml 450.685 ml Balance 1006.76 ml 450.685 ml Intake Oral 850 ml IV Total 156.76 ml 450.685 ml # Bowel Movements 1 Objective General Appearance: WD/WN, other - obtunded Lines, tubes and drains: peripheral HEENT: normocephalic, atraumatic Neck: non-tender, normal alignment Respiratory/Chest: chest wall non-tender, lungs clear Breasts: no masses, no discharge Cardiovascular/Chest: normal peripheral pulses Abdomen: normal bowel sounds Genitourinary/Rectal: normal genital exam Extremities: normal range of motion Skin Exam: normal pigmentation 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 Microbiology Date/Time Source Procedure Growth Status 11/30/17 03:05 Sputum Induced Gram Stain - Final Resulted 11/30/17 03:05 Sputum Induced Sputum Culture - Preliminary NO GROWTH Resulted Laboratory Tests 11/30/17 12:00: Activated Partial Thromboplast Time 89H 11/30/17 22:00: Stool Occult Blood [Pending] 12/01/17 03:50: Activated Partial Thromboplast Time 70H, White Blood Count 5.8, Red Blood Count 3.77L, Hemoglobin 8.8L, Hematocrit 27.9L, Mean Corpuscular Volume 74L, Mean Corpuscular Hemoglobin 23.3L, Mean Corpuscular Hemoglobin Concent 31.5L, Red Cell Distribution Width 16.7H, Platelet Count 307, Mean Platelet Volume 5.0L, Neutrophils (%) (Auto) 41.7L, Lymphocytes (%) (Auto) 40.1, Monocytes (%) (Auto) 12.9H, Eosinophils (%) (Auto) 4.7H, Basophils (%) (Auto) 0.7, Prothrombin Time 10.7, Prothromb Time International Ratio 1.0, Sodium Level 136, Potassium Level 4.3, Chloride Level 103, Carbon Dioxide Level 26, Anion Gap 7, Blood Urea Nitrogen 12, Creatinine 1.5H, Estimat Glomerular Filtration Rate 37.5, Glucose Level 170H, Calcium Level 8.6, Total Bilirubin 0.2, Aspartate Amino Transf (AST/ SGOT) 50H, Alanine Aminotransferase (ALT/SGPT) 84H, Alkaline Phosphatase 155H, Total Protein 7.0, Albumin 2.7L, Globulin 4.3, Albumin/Globulin Ratio 0.6L Current Medications Medications (Trade) Dose Ordered Sig/Kike Route PRN Reason Start Time Stop Time Status Last Admin Dose Admin Acetaminophen (Tylenol) 1,000 mg Q6H PRN ORAL Mild Pain/Temp > 100.5 11/26/17 21:45 12/26/17 21:44 Acetaminophen/ Hydrocodone Bitart ([place] 5/325) 1 tab Q6H PRN ORAL pain 4-6 11/27/17 04:45 12/04/17 04:44 Al Hydroxide/Mg Hydroxide (Mylanta II) 30 ml Q6H PRN ORAL dyspepsia 11/26/17 21:45 12/26/17 21:44 Dextrose (Dextrose 50%) STAT PRN IV Hypoglycemia 11/26/17 21:45 12/26/17 21:44 Enoxaparin Sodium (Lovenox) 160 mg Q24H SUBQ 12/01/17 10:15 12/31/17 10:14 UNV Gabapentin (Neurontin) 1,200 mg THREE TIMES A DAY ORAL 11/29/17 18:00 12/29/17 17:59 12/01/17 08:35 Heparin Sodium/ Dextrose 500 ml @ 39.19 mls/ hr adjust per protocol IV 11/30/17 06:00 12/27/17 18:04 12/01/17 06:41 Iron Sucrose 100 mg/Sodium Chloride 60 ml @ 240 mls/hr BEDTIME IV 11/27/17 21:00 12/01/17 21:14 11/27/17 20:50 Levofloxacin (Levaquin) 500 mg DAILY ORAL 11/30/17 09:00 12/07/17 08:59 12/01/17 08:35 Lorazepam (Ativan 2mg/ml 1ml) 0.5 mg Q4H PRN IV For Anxiety 11/26/17 21:45 12/03/17 21:44 Metoprolol Tartrate (Lopressor) 50 mg DAILY ORAL 11/27/17 09:00 12/27/17 08:59 12/01/17 08:35 Morphine Sulfate (Morphine Sulfate) 4 mg Q4H PRN IVP 7-10 11/27/17 04:45 12/04/17 04:44 12/01/17 08:35 Ondansetron HCl (Zofran) 4 mg Q6H PRN IVP Nausea & Vomiting 11/26/17 21:45 12/26/17 21:44 11/30/17 15:35 Pantoprazole (Protonix) 40 mg DAILY ORAL 11/28/17 09:45 12/28/17 09:44 12/01/17 08:35 Polyethylene Glycol (Miralax) 17 gm HSPRN PRN ORAL Constipation 11/26/17 21:45 12/26/17 21:44 Warfarin Sodium (Coumadin per pharmacy) 1 ea DAILY@1700 PRN MISC WARFARIN PER RX 11/27/17 10:45 12/27/17 10:44 Zolpidem Tartrate (Ambien) 5 mg HSPRN PRN ORAL Insomnia 11/26/17 21:45 12/03/17 21:44 GORAN BROOKS Dec 01, 2017 10:18
[2017-12-01 11:57] VITALS: BP 100/56
[2017-12-01] MEDS ORDERED: Enoxaparin Sodium 300mg/3ml vial SUBQ SCH (12:00)
--- NOTE | 2017-12-01 12:59 | Diagnostic Imaging Report ---
Indication: Abdominal pain Technique: US ABD Complete Comparison: None Findings: Limited exam due to patient body habitus and overlying bowel gas. Right lobe of the liver is enlarged, measuring 17 MM is length. Hepatic echogenicity is increased. No focal hepatic mass lesion is appreciated sonographically. Common bile is measures 1.8 mm in diameter. Gallbladder not visualized. Question prior cholecystectomy. Spleen is within the upper limits for normal size. There is no ascites. Kidneys demonstrate normal parenchymal thickness and echogenicity. A 4.6 cm anechoic structure with through transmission is noted in the lower pole the left kidney. There is no hydronephrosis bilaterally. IMPRESSION: Limited exam due to patient body habitus, overlying bowel gas and lack of cooperation with exam positioning (per cytometry technologist). Hepatomegaly and increased hepatic echogenicity most commonly reflective of hepatic steatosis. Additional hepatocellular disease should be excluded clinically. Gallbladder not visualized. Question prior cholecystectomy. Question simple cyst in the lower pole of the left kidney. No patient hydronephrosis bilaterally.
[2017-12-01] MEDS ORDERED: Mylanta II UD 30ml ORAL PRN (15:45)
[2017-12-01] MEDS ORDERED: Acetaminophen 500mg (ES) tab ORAL PRN (15:45)
[2017-12-01 16:00] VITALS: BP 107/60
[2017-12-01] MEDS ORDERED: NS 275ml ONE (16:34)
[2017-12-01] MEDS ORDERED: Tubing IV Secondary IV ONE (16:34)
[2017-12-01] MEDS ORDERED: Norco 5mg/325mg tab ORAL PRN (16:45)
[2017-12-01] MEDS ORDERED: Warfarin Sodium 10mg ORAL ONE ×2 (17:00)
[2017-12-01] MEDS ORDERED: Warfarin Sodium 2.5mg ORAL ONE ×2 (17:00)
[2017-12-01] MEDS ORDERED: LORazepam Inj 2mg/ml 1ml IV PRN (17:45)
[2017-12-01 20:00] VITALS: BP 110/76
[2017-12-01] MEDS: Enoxaparin Sodium 300mg/3ml vial SUBQ SCH (20:52)
[2017-12-01] MEDS: Iron Sucrose 100 MG in NS 55 ML IV SCH (20:55)
[2017-12-01] MEDS ORDERED: Morphine Sulfate 4mg/ml Inj IVP ONE (21:15)
[2017-12-01] MEDS ORDERED: Zolpidem 5mg tab ORAL PRN (21:45)
[2017-12-01] MEDS ORDERED: Miralax 17gm pkt ORAL PRN (21:45)
--- NOTE | 2017-12-01 23:08 | General Progress Note ---
Assessment/Plan Assessment/Plan #. Acute deep venous thrombosis of the left lower extremity. --> Begin the patient on heparin drip as well as Coumadin. INR goal bt 2 and 3 -->The patient at this time appeared to have progressed on Xarelto. This is a fairly common finding. --> Closely monitor the patient's anemia to make sure if the patient does not have a contraindication for anticoagulation. --> On pain control - morphine/norco. #. Pulmonary embolism history. --> She has been on Xarelto, currently progressed. Begin the patient on Coumadin and heparin. --> Again monitor closely for contraindication for anticoag. --> INR currently 1.2 #. Anemia due to underlying chronic disease. --> Blood transfusion not required unless symptomatic or hgb <7 --> Trend cbc daily. #. Anemia due to likely iron deficiency. --> Begin workup likely iron deficiency. #. Shortness of breath likely due to history of anxiety as well as history of pulmonary embolism. #. Coagulopathy due to heparin drip. #. Bronchitis. #. Asthma. Subjective Date patient seen: Dec 01, 2017 Constitutional: Denies: no symptoms, chills, diaphoresis, fever, malaise, weakness, other HEENT: Denies: no symptoms, eye pain, blurred vision, tearing, double vision, ear pain, ear discharge, nose pain, nose congestion, throat pain, throat swelling, mouth pain, mouth swelling, other Cardiovascular: Denies: no symptoms, chest pain, edema, irregular heart rate, lightheadedness, palpitations, syncope, other Respiratory: Denies: no symptoms, cough, orthopnea, shortness of breath, SOB with excertion, SOB at rest, sputum, stridor, wheezing, other Gastrointestinal/Abdominal: Denies: no symptoms, abdomen distended, abdominal pain, black stools, tarry stools, blood in stool, constipated, diarrhea, difficulty swallowing, nausea, poor appetite, poor fluid intake, rectal bleeding , vomiting, other Genitourinary: Denies: no symptoms, burning, discharge, frequency, flank pain, hematuria, incontinence, pain, urgency, other Hematologic/Lymphatic: Reports: anemia Allergies: Coded Allergies: AMOXICILLIN (Verified Allergy, Unknown, 11/26/17) ASPIRIN (Verified Allergy, Unknown, 11/26/17) AZITHROMYCIN (Verified Allergy, Unknown, 11/26/17) CEPHALEXIN (Verified Allergy, Unknown, 11/26/17) CLAVULANIC ACID (Verified Allergy, Unknown, 11/26/17) IBUPROFEN (Verified Allergy, Unknown, 11/26/17) NSAIDS (NON-STEROIDAL ANTI-INFLAMMA (Verified Allergy, Unknown, 11/26/17) TRAMADOL (Verified Allergy, Unknown, 11/26/17) Subjective On anticoag. Complained of pain, on pain control. Objective Last 24 Hour Vital Signs Date Time Temp Pulse Resp B/P (MAP) Pulse Ox O2 Delivery O2 Flow Rate FiO2 12/01/17 21:48 98.8 12/01/17 20:00 98.8 87 21 110/76 97 12/01/17 19:46 99.3 12/01/17 16:00 99.3 88 20 107/60 88 12/01/17 13:11 98.2 12/01/17 11:57 98.2 83 18 100/56 96 12/01/17 08:35 90 134/74 12/01/17 08:00 91 12/01/17 08:00 97.9 90 18 134/74 95 12/01/17 04:00 97.0 96 20 109/66 91 12/01/17 04:00 95 12/01/17 00:00 97.3 98 20 96/60 91 12/01/17 00:00 91 Intake and Output 11/30/17 12/01/17 19:00 07:00 Intake Total 1006.76 ml 450.685 ml Balance 1006.76 ml 450.685 ml Intake Oral 850 ml IV Total 156.76 ml 450.685 ml # Bowel Movements 1 Laboratory Tests 12/01/17 03:50: White Blood Count 5.8, Red Blood Count 3.77L, Hemoglobin 8.8L, Hematocrit 27.9L , Mean Corpuscular Volume 74L, Mean Corpuscular Hemoglobin 23.3L, Mean Corpuscular Hemoglobin Concent 31.5L, Red Cell Distribution Width 16.7H, Platelet Count 307, Mean Platelet Volume 5.0L, Neutrophils (%) (Auto) 41.7L, Lymphocytes (%) (Auto) 40.1, Monocytes (%) (Auto) 12.9H, Eosinophils (%) (Auto) 4.7H, Basophils (%) (Auto) 0.7, Prothrombin Time 10.7, Prothromb Time International Ratio 1.0, Activated Partial Thromboplast Time 70H, Sodium Level 136, Potassium Level 4.3, Chloride Level 103, Carbon Dioxide Level 26, Anion Gap 7, Blood Urea Nitrogen 12, Creatinine 1.5H, Estimat Glomerular Filtration Rate 37.5, Glucose Level 170H, Calcium Level 8.6, Total Bilirubin 0.2, Aspartate Amino Transf (AST/SGOT) 50H, Alanine Aminotransferase (ALT/SGPT) 84H, Alkaline Phosphatase 155H, Total Protein 7.0, Albumin 2.7L, Globulin 4.3, Albumin/Globulin Ratio 0.6L Height (Feet): 5 Height (Inches): 1.00 Weight (Pounds): 240 General Appearance: mild distress Respiratory/Chest: decreased breath sounds Abdomen: soft Herberth Manzanares Dec 01, 2017 23:08
[2017-12-02] VITALS: BP 123/69
[2017-12-02] MEDS: Morphine Sulfate 4mg/ml Inj IVP PRN ×6 (01:22→21:31)
[2017-12-02 04:00] VITALS: BP 109/57
[2017-12-02 08:00] VITALS: BP 123/67
[2017-12-02 09:09] LABS: BASOPHILS % (AUTO) 1.1 % (0.0-2.0); EOSINOPHILS % (AUTO) 3.4 % (0.0-3.0); HEMATOCRIT 30.2 % (37.0-47.0); HEMOGLOBIN 9.5 G/DL (12.0-16.0); LYMPHOCYTES % (AUTO) 37.3 % (20.0-45.0); MEAN CORPUSCULAR VOLUME 74 FL (80-99); MONOCYTES % (AUTO) 11.4 % (1.0-10.0); NEUTROPHILS % (AUTO) 46.9 % (45.0-75.0); PLATELET COUNT 319 K/UL (150-450); RED BLOOD COUNT 4.06 M/UL (4.20-5.40); RED CELL DISTRIBUTION WIDTH 16.5 % (11.6-14.8); WHITE BLOOD COUNT 5.7 K/UL (4.8-10.8)
[2017-12-02 09:11] LABS: INR 0.9 (0.9-1.1)
[2017-12-02 09:26] LABS: ALANINE AMINOTRANSFERASE 75 U/L (12-78); ALBUMIN 2.9 G/DL (3.4-5.0); ALBUMIN/GLOBULIN RATIO 0.6 (1.0-2.7); ALKALINE PHOSPHATASE 163 U/L (46-116); ANION GAP 9 mmol/L (5-15); ASPARTATE AMINO TRANSFERASE 44 U/L (15-37); BILIRUBIN,TOTAL 0.2 MG/DL (0.2-1.0); BLOOD UREA NITROGEN 13 mg/dL (7-18); CARBON DIOXIDE 24 MMOL/L (21-32); CHLORIDE 103 MMOL/L (98-107); CREATININE 1.2 MG/DL (0.55-1.30); PHOSPHORUS 4.3 MG/DL (2.5-4.9); POTASSIUM 4.8 MMOL/L (3.5-5.1); SODIUM 136 MMOL/L (136-145)
[2017-12-02] MEDS: Metoprolol Tartrate 50mg tab ORAL SCH (09:32)
[2017-12-02] MEDS: Enoxaparin Sodium 300mg/3ml vial SUBQ SCH (09:34)
--- NOTE | 2017-12-02 09:58 | Infectious Diseases Prog Note ---
Assessment/Plan Assessment/Plan A: Acute on chronic L DVT -v/ duplex: RIGHT LEG: No DVT. LEFT LEG: Venous imaging reveals acute thrombus in the mid superficial femoral vein. Imaging also reveals chronic thrombus in the superficial femoral to popliteal veins. Large collateral vein noted anteriorto the superficial femoral artery. Remainder of the deep venous system within normal limits. No evidence of thrombus in the common and calf veins. Greater saphenous vein also within normal limits. L lung infiltrates- likely PNA (+cough) ;r/o PE CT: Linear consolidation or atelectasis in the left midlung. -CXR: Left lung infiltrates, likely pneumonia. Possible retrocardiac hiatal hernia Afebrile, no leukocytosis Transaminitis - US of Abd : Limited exam due to patient body habitus, Hepatomegaly and hepatic steatosis. hx of DVT/PE on xarelto Plan: - monitor pt off of AB Rx 12/01 SP Levaquin # 6 for PNA -Mont[place] CBC/BMP, temperatures - Hep panel Subjective Constitutional: Denies: no symptoms, fever, chills, fatigue, anorexia, drenching sweats, other Allergies: Coded Allergies: AMOXICILLIN (Verified Allergy, Unknown, 11/26/17) ASPIRIN (Verified Allergy, Unknown, 11/26/17) AZITHROMYCIN (Verified Allergy, Unknown, 11/26/17) CEPHALEXIN (Verified Allergy, Unknown, 11/26/17) CLAVULANIC ACID (Verified Allergy, Unknown, 11/26/17) IBUPROFEN (Verified Allergy, Unknown, 11/26/17) NSAIDS (NON-STEROIDAL ANTI-INFLAMMA (Verified Allergy, Unknown, 11/26/17) TRAMADOL (Verified Allergy, Unknown, 11/26/17) Objective Vital Signs Last 24 Hour Vital Signs Date Time Temp Pulse Resp B/P (MAP) Pulse Ox O2 Delivery O2 Flow Rate FiO2 12/02/17 09:32 91 123/67 12/02/17 08:00 97.7 91 20 123/67 95 Room Air 12/02/17 06:08 97.9 12/02/17 04:00 97.9 93 20 109/57 100 12/02/17 00:00 98.6 86 20 123/69 98 12/01/17 21:48 98.8 12/01/17 20:00 98.8 87 21 110/76 97 12/01/17 19:46 99.3 12/01/17 16:00 99.3 88 20 107/60 88 12/01/17 13:11 98.2 12/01/17 11:57 98.2 83 18 100/56 96 Height (Feet): 5 Height (Inches): 1.00 Weight (Pounds): 240 HEENT: mucous membranes moist Respiratory/Chest: respiratory distress Abdomen: non distended Microbiology Date/Time Source Procedure Growth Status 11/30/17 03:05 Sputum Induced Gram Stain - Final Complete 11/30/17 03:05 Sputum Induced Sputum Culture - Final NORMAL UPPER RESPIRATORY BLANQUITA PRESENT Complete Laboratory Tests Test 12/02/17 06:38 White Blood Count 5.7 K/UL (4.8-10.8) Red Blood Count 4.06 M/UL (4.20-5.40) L Hemoglobin 9.5 G/DL (12.0-16.0) L Hematocrit 30.2 % (37.0-47.0) L Mean Corpuscular Volume 74 FL (80-99) L Mean Corpuscular Hemoglobin 23.4 PG (27.0-31.0) L Mean Corpuscular Hemoglobin Concent 31.5 G/DL (32.0-36.0) L Red Cell Distribution Width 16.5 % (11.6-14.8) H Platelet Count 319 K/UL (150-450) Mean Platelet Volume 5.4 FL (6.5-10.1) L Neutrophils (%) (Auto) 46.9 % (45.0-75.0) Lymphocytes (%) (Auto) 37.3 % (20.0-45.0) Monocytes (%) (Auto) 11.4 % (1.0-10.0) H Eosinophils (%) (Auto) 3.4 % (0.0-3.0) H Basophils (%) (Auto) 1.1 % (0.0-2.0) Prothrombin Time 9.4 SEC (9.30-11.50) Prothromb Time International Ratio 0.9 (0.9-1.1) Sodium Level 136 MMOL/L (136-145) Potassium Level 4.8 MMOL/L (3.5-5.1) Chloride Level 103 MMOL/L (98-107) Carbon Dioxide Level 24 MMOL/L (21-32) Anion Gap 9 mmol/L (5-15) Blood Urea Nitrogen 13 mg/dL (7-18) Creatinine 1.2 MG/DL (0.55-1.30) Estimat Glomerular Filtration Rate 48.6 mL/min (>60) Glucose Level 103 MG/DL (74-106) Calcium Level 9.0 MG/DL (8.5-10.1) Phosphorus Level 4.3 MG/DL (2.5-4.9) Magnesium Level 2.1 MG/DL (1.8-2.4) Total Bilirubin 0.2 MG/DL (0.2-1.0) Aspartate Amino Transf (AST/SGOT) 44 U/L (15-37) H Alanine Aminotransferase (ALT/SGPT) 75 U/L (12-78) Alkaline Phosphatase 163 U/L (46-116) H Total Protein 7.8 G/DL (6.4-8.2) Albumin 2.9 G/DL (3.4-5.0) L Globulin 4.9 g/dL Albumin/Globulin Ratio 0.6 (1.0-2.7) L Current Medications Medications (Trade) Dose Ordered Sig/Kike Route PRN Reason Start Time Stop Time Status Last Admin Dose Admin Acetaminophen (Tylenol) 1,000 mg Q6H PRN ORAL Mild Pain/Temp > 100.5 12/01/17 15:45 12/26/17 21:44 Acetaminophen/ Hydrocodone Bitart ([place] 5/325) 1 tab Q6H PRN ORAL pain 4-6 12/01/17 16:45 12/04/17 04:44 12/01/17 18:47 Al Hydroxide/Mg Hydroxide (Mylanta II) 30 ml Q6H PRN ORAL dyspepsia 12/01/17 15:45 12/26/17 21:44 Clotrimazole (Lotrimin) 1 applic Q12HR TOPIC 12/01/17 21:00 12/31/17 20:59 12/02/17 09:32 Dextrose (Dextrose 50%) STAT PRN IV Hypoglycemia 12/01/17 21:45 12/26/17 21:44 Enoxaparin Sodium (Lovenox) 110 mg Q12HR SUBQ 12/01/17 21:00 12/31/17 11:59 12/02/17 09:34 Gabapentin (Neurontin) 1,200 mg THREE TIMES A DAY ORAL 12/01/17 18:00 12/29/17 17:59 12/02/17 09:32 Iron Sucrose 100 mg/Sodium Chloride 60 ml @ 240 mls/hr BEDTIME IV 12/01/17 21:00 12/04/17 21:01 Lorazepam (Ativan 2mg/ml 1ml) 0.5 mg Q4H PRN IV For Anxiety 12/01/17 17:45 12/03/17 21:44 Metoprolol Tartrate (Lopressor) 50 mg DAILY ORAL 12/02/17 09:00 12/27/17 08:59 12/02/17 09:32 Morphine Sulfate (Morphine Sulfate) 4 mg Q4H PRN IVP 7-10 12/01/17 16:45 12/04/17 04:44 12/02/17 09:32 Ondansetron HCl (Zofran) 4 mg Q6H PRN IVP Nausea & Vomiting 12/01/17 15:45 12/26/17 21:44 12/02/17 05:37 Pantoprazole (Protonix) 40 mg DAILY ORAL 12/02/17 09:00 12/28/17 09:44 12/02/17 09:32 Polyethylene Glycol (Miralax) 17 gm HSPRN PRN ORAL Constipation 12/01/17 21:45 12/26/17 21:44 Warfarin Sodium (Coumadin per pharmacy) 1 ea DAILY@1700 PRN MISC WARFARIN PER RX 12/01/17 17:00 12/27/17 10:44 Warfarin Sodium (Coumadin) 15 mg COUMADIN ONCE ORAL 12/02/17 17:00 12/02/17 17:01 Zolpidem Tartrate (Ambien) 5 mg HSPRN PRN ORAL Insomnia 12/01/17 21:45 12/03/17 21:44 VARUN CALLAWAY M.D. Dec 02, 2017 09:58
--- NOTE | 2017-12-02 10:35 | Pulmonology Progress Note ---
Assessment/Plan Problems: (1) DVT (deep venous thrombosis) (2) Chest pain Assessment/Plan on coumadin and heparin doing better dc planning once inr is therapeutic change heparin to lovenox if ok with pharmacy INR has not moved yet Subjective ROS Limited/Unobtainable: No Allergies: Coded Allergies: AMOXICILLIN (Verified Allergy, Unknown, 11/26/17) ASPIRIN (Verified Allergy, Unknown, 11/26/17) AZITHROMYCIN (Verified Allergy, Unknown, 11/26/17) CEPHALEXIN (Verified Allergy, Unknown, 11/26/17) CLAVULANIC ACID (Verified Allergy, Unknown, 11/26/17) IBUPROFEN (Verified Allergy, Unknown, 11/26/17) NSAIDS (NON-STEROIDAL ANTI-INFLAMMA (Verified Allergy, Unknown, 11/26/17) TRAMADOL (Verified Allergy, Unknown, 11/26/17) Objective Last 24 Hour Vital Signs Date Time Temp Pulse Resp B/P (MAP) Pulse Ox O2 Delivery O2 Flow Rate FiO2 12/02/17 09:32 91 123/67 12/02/17 08:00 97.7 91 20 123/67 95 Room Air 12/02/17 06:08 97.9 12/02/17 04:00 97.9 93 20 109/57 100 12/02/17 00:00 98.6 86 20 123/69 98 12/01/17 21:48 98.8 12/01/17 20:00 98.8 87 21 110/76 97 12/01/17 19:46 99.3 12/01/17 16:00 99.3 88 20 107/60 88 12/01/17 13:11 98.2 12/01/17 11:57 98.2 83 18 100/56 96 Intake and Output 12/01/17 12/02/17 19:00 07:00 Intake Total 357.57 ml 450 ml Output Total 400 ml Balance -42.43 ml 450 ml Intake Oral 240 ml 450 ml IV Total 117.57 ml Output Urine Total 400 ml # Voids 4 # Bowel Movements 1 1 Objective General Appearance: WD/WN, other - obtunded Lines, tubes and drains: peripheral HEENT: normocephalic, atraumatic Neck: non-tender, normal alignment Respiratory/Chest: chest wall non-tender, lungs clear Breasts: no masses, no discharge Cardiovascular/Chest: normal peripheral pulses Abdomen: normal bowel sounds Genitourinary/Rectal: normal genital exam Extremities: normal range of motion Skin Exam: normal pigmentation 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 II-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 grossly normal Microbiology Date/Time Source Procedure Growth Status 11/30/17 03:05 Sputum Induced Gram Stain - Final Complete 11/30/17 03:05 Sputum Induced Sputum Culture - Final NORMAL UPPER RESPIRATORY BLANQUITA PRESENT Complete Laboratory Tests 12/02/17 06:38: White Blood Count 5.7, Red Blood Count 4.06L, Hemoglobin 9.5L, Hematocrit 30.2L , Mean Corpuscular Volume 74L, Mean Corpuscular Hemoglobin 23.4L, Mean Corpuscular Hemoglobin Concent 31.5L, Red Cell Distribution Width 16.5H, Platelet Count 319, Mean Platelet Volume 5.4L, Neutrophils (%) (Auto) 46.9, Lymphocytes (%) (Auto) 37.3, Monocytes (%) (Auto) 11.4H, Eosinophils (%) (Auto) 3.4H, Basophils (%) (Auto) 1.1, Prothrombin Time 9.4, Prothromb Time International Ratio 0.9, Sodium Level 136, Potassium Level 4.8, Chloride Level 103, Carbon Dioxide Level 24, Anion Gap 9, Blood Urea Nitrogen 13, Creatinine 1.2, Estimat Glomerular Filtration Rate 48.6, Glucose Level 103, Calcium Level 9.0, Phosphorus Level 4.3, Magnesium Level 2.1, Total Bilirubin 0.2, Aspartate Amino Transf (AST/SGOT) 44H, Alanine Aminotransferase (ALT/SGPT) 75, Alkaline Phosphatase 163H, Total Protein 7.8, Albumin 2.9L, Globulin 4.9, Albumin/ Globulin Ratio 0.6L Current Medications Medications (Trade) Dose Ordered Sig/Kike Route PRN Reason Start Time Stop Time Status Last Admin Dose Admin Acetaminophen (Tylenol) 1,000 mg Q6H PRN ORAL Mild Pain/Temp > 100.5 12/01/17 15:45 12/26/17 21:44 Acetaminophen/ Hydrocodone Bitart ([place] 5/325) 1 tab Q6H PRN ORAL pain 4-6 12/01/17 16:45 12/04/17 04:44 12/01/17 18:47 Al Hydroxide/Mg Hydroxide (Mylanta II) 30 ml Q6H PRN ORAL dyspepsia 12/01/17 15:45 12/26/17 21:44 Clotrimazole (Lotrimin) 1 applic Q12HR TOPIC 12/01/17 21:00 12/31/17 20:59 12/02/17 09:32 Dextrose (Dextrose 50%) STAT PRN IV Hypoglycemia 12/01/17 21:45 12/26/17 21:44 Enoxaparin Sodium (Lovenox) 110 mg Q12HR SUBQ 12/01/17 21:00 12/31/17 11:59 12/02/17 09:34 Gabapentin (Neurontin) 1,200 mg THREE TIMES A DAY ORAL 12/01/17 18:00 12/29/17 17:59 12/02/17 09:32 Iron Sucrose 100 mg/Sodium Chloride 60 ml @ 240 mls/hr BEDTIME IV 12/01/17 21:00 12/04/17 21:01 Lorazepam (Ativan 2mg/ml 1ml) 0.5 mg Q4H PRN IV For Anxiety 12/01/17 17:45 12/03/17 21:44 Metoprolol Tartrate (Lopressor) 50 mg DAILY ORAL 12/02/17 09:00 12/27/17 08:59 12/02/17 09:32 Morphine Sulfate (Morphine Sulfate) 4 mg Q4H PRN IVP 7-10 12/01/17 16:45 12/04/17 04:44 12/02/17 09:32 Ondansetron HCl (Zofran) 4 mg Q6H PRN IVP Nausea & Vomiting 12/01/17 15:45 12/26/17 21:44 12/02/17 05:37 Pantoprazole (Protonix) 40 mg DAILY ORAL 12/02/17 09:00 12/28/17 09:44 12/02/17 09:32 Polyethylene Glycol (Miralax) 17 gm HSPRN PRN ORAL Constipation 12/01/17 21:45 12/26/17 21:44 Warfarin Sodium (Coumadin per pharmacy) 1 ea DAILY@1700 PRN MISC WARFARIN PER RX 12/01/17 17:00 12/27/17 10:44 Warfarin Sodium (Coumadin) 15 mg COUMADIN ONCE ORAL 12/02/17 17:00 12/02/17 17:01 Zolpidem Tartrate (Ambien) 5 mg HSPRN PRN ORAL Insomnia 12/01/17 21:45 12/03/17 21:44 GORAN BROOKS Dec 02, 2017 10:35
[2017-12-02 11:56] VITALS: BP 111/53
[2017-12-02 15:45] VITALS: BP 143/69
[2017-12-02] MEDS ORDERED: Warfarin Sod 10 MG, Warfarin Sod 5 MG ORAL ONE ×2 (17:00)
[2017-12-02 19:50] VITALS: BP 118/63
[2017-12-02] MEDS: Iron Sucrose 100 MG in NS 55 ML IV SCH (21:00)
[2017-12-02] MEDS ORDERED: Enoxaparin Sodium 300mg/3ml vial SUBQ SCH ×2 (21:00)
--- NOTE | 2017-12-02 23:37 | General Progress Note ---
Assessment/Plan Status: unchanged Assessment/Plan #. Acute deep venous thrombosis of the left lower extremity. --> Patient is on heparin drip as well as Coumadin. INR goal bt 2 and 3. --> Currently 1.0 -->The patient at this time appeared to have progressed on Xarelto. This is a fairly common finding. --> Closely monitor the patient's anemia to make sure if the patient does not have a contraindication for anticoagulation. --> On pain control - morphine/norco. #. Pulmonary embolism history. --> She has been on Xarelto, currently progressed. Begin the patient on Coumadin and heparin. --> Again monitor closely for contraindication for anticoag. --> INR currently 1.0, awaiting for INR to reach goal to discharge. #. Anemia due to underlying chronic disease. --> Blood transfusion not required unless symptomatic or hgb <7 --> Trend cbc daily. #. Anemia due to likely iron deficiency. --> Begin workup likely iron deficiency. #. Shortness of breath likely due to history of anxiety as well as history of pulmonary embolism. #. Coagulopathy due to heparin drip. #. Bronchitis. #. Asthma. Subjective Date patient seen: Dec 02, 2017 Constitutional: Denies: no symptoms, chills, diaphoresis, fever, malaise, weakness, other HEENT: Denies: no symptoms, eye pain, blurred vision, tearing, double vision, ear pain, ear discharge, nose pain, nose congestion, throat pain, throat swelling, mouth pain, mouth swelling, other Cardiovascular: Denies: no symptoms, chest pain, edema, irregular heart rate, lightheadedness, palpitations, syncope, other Respiratory: Denies: no symptoms, cough, orthopnea, shortness of breath, SOB with excertion, SOB at rest, sputum, stridor, wheezing, other Gastrointestinal/Abdominal: Denies: no symptoms, abdomen distended, abdominal pain, black stools, tarry stools, blood in stool, constipated, diarrhea, difficulty swallowing, nausea, poor appetite, poor fluid intake, rectal bleeding , vomiting, other Genitourinary: Denies: no symptoms, burning, discharge, frequency, flank pain, hematuria, incontinence, pain, urgency, other Hematologic/Lymphatic: Reports: anemia Allergies: Coded Allergies: AMOXICILLIN (Verified Allergy, Unknown, 11/26/17) ASPIRIN (Verified Allergy, Unknown, 11/26/17) AZITHROMYCIN (Verified Allergy, Unknown, 11/26/17) CEPHALEXIN (Verified Allergy, Unknown, 11/26/17) CLAVULANIC ACID (Verified Allergy, Unknown, 11/26/17) IBUPROFEN (Verified Allergy, Unknown, 11/26/17) NSAIDS (NON-STEROIDAL ANTI-INFLAMMA (Verified Allergy, Unknown, 11/26/17) TRAMADOL (Verified Allergy, Unknown, 11/26/17) Subjective Remains on anticoag and pain control. No acute events. Objective Last 24 Hour Vital Signs Date Time Temp Pulse Resp B/P (MAP) Pulse Ox O2 Delivery O2 Flow Rate FiO2 12/02/17 22:01 98.5 12/02/17 19:50 98.5 89 20 118/63 95 12/02/17 15:45 Room Air 12/02/17 15:45 97.9 84 18 143/69 96 Room Air 12/02/17 11:56 98.1 80 18 111/53 98 Room Air 12/02/17 11:56 Room Air 12/02/17 09:32 91 123/67 12/02/17 08:00 Room Air 12/02/17 08:00 97.7 91 20 123/67 95 Room Air 12/02/17 04:00 97.9 93 20 109/57 100 12/02/17 00:00 98.6 86 20 123/69 98 Intake and Output 12/01/17 12/02/17 19:00 07:00 Intake Total 357.57 ml 450 ml Output Total 400 ml Balance -42.43 ml 450 ml Intake Oral 240 ml 450 ml IV Total 117.57 ml Output Urine Total 400 ml # Voids 4 # Bowel Movements 1 1 Laboratory Tests 12/02/17 06:38: White Blood Count 5.7, Red Blood Count 4.06L, Hemoglobin 9.5L, Hematocrit 30.2L , Mean Corpuscular Volume 74L, Mean Corpuscular Hemoglobin 23.4L, Mean Corpuscular Hemoglobin Concent 31.5L, Red Cell Distribution Width 16.5H, Platelet Count 319, Mean Platelet Volume 5.4L, Neutrophils (%) (Auto) 46.9, Lymphocytes (%) (Auto) 37.3, Monocytes (%) (Auto) 11.4H, Eosinophils (%) (Auto) 3.4H, Basophils (%) (Auto) 1.1, Prothrombin Time 9.4, Prothromb Time International Ratio 0.9, Sodium Level 136, Potassium Level 4.8, Chloride Level 103, Carbon Dioxide Level 24, Anion Gap 9, Blood Urea Nitrogen 13, Creatinine 1.2, Estimat Glomerular Filtration Rate 48.6, Glucose Level 103, Calcium Level 9.0, Phosphorus Level 4.3, Magnesium Level 2.1, Total Bilirubin 0.2, Aspartate Amino Transf (AST/SGOT) 44H, Alanine Aminotransferase (ALT/SGPT) 75, Alkaline Phosphatase 163H, Total Protein 7.8, Albumin 2.9L, Globulin 4.9, Albumin/ Globulin Ratio 0.6L Height (Feet): 5 Height (Inches): 1.00 Weight (Pounds): 240 General Appearance: no apparent distress Respiratory/Chest: lungs clear Abdomen: non tender, soft Herberth Manzanares Dec 02, 2017 23:37
[2017-12-03] VITALS: BP 108/58
[2017-12-03] MEDS: Morphine Sulfate 4mg/ml Inj IVP PRN ×4 (01:31→13:47)
[2017-12-03 04:00] VITALS: BP 112/65
[2017-12-03 06:59] LABS: INR 0.9 (0.9-1.1)
[2017-12-03 07:06] LABS: BASOPHILS % (AUTO) 1.1 % (0.0-2.0); EOSINOPHILS % (AUTO) 4.3 % (0.0-3.0); HEMATOCRIT 29.1 % (37.0-47.0); LYMPHOCYTES % (AUTO) 41.9 % (20.0-45.0); MEAN CORPUSCULAR VOLUME 74 FL (80-99); MONOCYTES % (AUTO) 12.6 % (1.0-10.0); PLATELET COUNT 193 K/UL (150-450); RED BLOOD COUNT 3.94 M/UL (4.20-5.40); RED CELL DISTRIBUTION WIDTH 16.2 % (11.6-14.8); WHITE BLOOD COUNT 6.2 K/UL (4.8-10.8)
[2017-12-03 07:13] LABS: ALANINE AMINOTRANSFERASE 64 U/L (12-78); ALBUMIN 2.9 G/DL (3.4-5.0); ALBUMIN/GLOBULIN RATIO 0.6 (1.0-2.7); ALKALINE PHOSPHATASE 156 U/L (46-116); ANION GAP 11 mmol/L (5-15); ASPARTATE AMINO TRANSFERASE 42 U/L (15-37); BILIRUBIN,TOTAL 0.3 MG/DL (0.2-1.0); BLOOD UREA NITROGEN 12 mg/dL (7-18); CALCIUM 9.2 MG/DL (8.5-10.1); CARBON DIOXIDE 23 MMOL/L (21-32); CHLORIDE 103 MMOL/L (98-107); CREATININE 1.1 MG/DL (0.55-1.30); PHOSPHORUS 4.4 MG/DL (2.5-4.9); POTASSIUM 4.8 MMOL/L (3.5-5.1); SODIUM 136 MMOL/L (136-145)
[2017-12-03 08:00] VITALS: BP 97/60
[2017-12-03] MEDS: Metoprolol Tartrate 50mg tab ORAL SCH (09:00)
[2017-12-03] MEDS ORDERED: NS 500ML ONE (10:03)
[2017-12-03 12:00] VITALS: BP 122/89
--- NOTE | 2017-12-03 12:12 | Wound Care Consultation ---
Wound Assessment Wound Assessment : Wound Number: 1 Wound Present on Admission: Yes New Wound: No Status Change of Wound: No Wound Location Body Site: abdominal fold Wound Type: rash Lisa Test: Does not Lisa Rashes: [place] w/erosion Percent of Wound [place]/Red: 100 Wound Drainage Amount: None Wound Drainage Odor: None/Absent Tissue Surrounding Wound: Erythemic Wound General Appearance: Reddened Wound Comment #1 Abdominal folds [place] rash with erosion Recommendation -Apply ointment as ordered by MD -Keep clean and dry -Assess and f/u accordingly for any changes JACIEL HERNANDEZ RN Dec 03, 2017 12:11
[2017-12-03] MEDS ORDERED: ELIQUIS2.5 MG ORAL (14:31)
[2017-12-03 16:00] VITALS: BP 120/82
[2017-12-03] MEDS ORDERED: Eliquis 2.5mg tablet ORAL SCH (18:00)
--- NOTE | 2017-12-03 23:52 | General Progress Note ---
Assessment/Plan Assessment/Plan #. Acute deep venous thrombosis of the left lower extremity. --> Patient is on heparin drip as well as Coumadin. INR goal bt 2 and 3. --> Currently 0.9 -->The patient at this time appeared to have progressed on Xarelto. This is a fairly common finding. --> Closely monitor the patient's anemia to make sure if the patient does not have a contraindication for anticoagulation. --> On pain control - morphine/norco. #. Pulmonary embolism history. --> She has been on Xarelto, currently progressed. Begin the patient on Coumadin and heparin. --> Again monitor closely for contraindication for anticoag. --> INR currently 0.9, awaiting for INR to reach goal to discharge. #. Anemia due to underlying chronic disease. --> Blood transfusion not required unless symptomatic or hgb <7 --> Trend cbc daily. #. Anemia due to likely iron deficiency. #. Shortness of breath likely due to history of anxiety as well as history of pulmonary embolism. #. Coagulopathy due to heparin drip. #. Bronchitis. #. Asthma. Subjective Date patient seen: Dec 03, 2017 Constitutional: Denies: no symptoms, chills, diaphoresis, fever, malaise, weakness, other HEENT: Denies: no symptoms, eye pain, blurred vision, tearing, double vision, ear pain, ear discharge, nose pain, nose congestion, throat pain, throat swelling, mouth pain, mouth swelling, other Cardiovascular: Denies: no symptoms, chest pain, edema, irregular heart rate, lightheadedness, palpitations, syncope, other Respiratory: Denies: no symptoms, cough, orthopnea, shortness of breath, SOB with excertion, SOB at rest, sputum, stridor, wheezing, other Gastrointestinal/Abdominal: Denies: no symptoms, abdomen distended, abdominal pain, black stools, tarry stools, blood in stool, constipated, diarrhea, difficulty swallowing, nausea, poor appetite, poor fluid intake, rectal bleeding , vomiting, other Genitourinary: Denies: no symptoms, burning, discharge, frequency, flank pain, hematuria, incontinence, pain, urgency, other Allergies: Coded Allergies: AMOXICILLIN (Verified Allergy, Unknown, 11/26/17) ASPIRIN (Verified Allergy, Unknown, 11/26/17) AZITHROMYCIN (Verified Allergy, Unknown, 11/26/17) CEPHALEXIN (Verified Allergy, Unknown, 11/26/17) CLAVULANIC ACID (Verified Allergy, Unknown, 11/26/17) IBUPROFEN (Verified Allergy, Unknown, 11/26/17) NSAIDS (NON-STEROIDAL ANTI-INFLAMMA (Verified Allergy, Unknown, 11/26/17) TRAMADOL (Verified Allergy, Unknown, 11/26/17) Subjective No major events. Stable. On anticoag. Objective Last 24 Hour Vital Signs Date Time Temp Pulse Resp B/P (MAP) Pulse Ox O2 Delivery O2 Flow Rate FiO2 12/03/17 16:00 97.7 102 20 120/82 96 12/03/17 12:00 98.4 91 20 122/89 96 12/03/17 09:00 92 97/60 12/03/17 08:00 98.6 92 20 97/60 95 12/03/17 06:01 97.9 12/03/17 04:00 97.9 89 18 112/65 96 12/03/17 00:00 97.9 90 20 108/58 92 Intake and Output 12/02/17 12/03/17 19:00 07:00 Intake Total 1200 ml 200 ml Balance 1200 ml 200 ml Intake Oral 1200 ml 200 ml # Voids 6 3 Laboratory Tests 12/03/17 04:05: White Blood Count 6.2, Red Blood Count 3.94L, Hemoglobin 9.0L, Hematocrit 29.1L , Mean Corpuscular Volume 74L, Mean Corpuscular Hemoglobin 22.8L, Mean Corpuscular Hemoglobin Concent 30.8L, Red Cell Distribution Width 16.2H, Platelet Count 193, Mean Platelet Volume 5.4L, Neutrophils (%) (Auto) 40.0L, Lymphocytes (%) (Auto) 41.9, Monocytes (%) (Auto) 12.6H, Eosinophils (%) (Auto) 4.3H, Basophils (%) (Auto) 1.1, Prothrombin Time 9.6, Prothromb Time International Ratio 0.9, Activated Partial Thromboplast Time 28, Sodium Level 136, Potassium Level 4.8, Chloride Level 103, Carbon Dioxide Level 23, Anion Gap 11, Blood Urea Nitrogen 12, Creatinine 1.1, Estimat Glomerular Filtration Rate 53.7, Glucose Level 92, Calcium Level 9.2, Phosphorus Level 4.4, Magnesium Level 2.2, Total Bilirubin 0.3, Aspartate Amino Transf (AST/SGOT) 42H, Alanine Aminotransferase (ALT/SGPT) 64, Alkaline Phosphatase 156H, Total Protein 7.5, Albumin 2.9L, Globulin 4.6, Albumin/Globulin Ratio 0.6L, Hepatitis A IgM Antibody [Pending], Hepatitis B Surface Antigen [Pending], Hepatitis B Core IgM Antibody [Pending], Hepatitis C Antibody [Pending] Height (Feet): 5 Height (Inches): 1.00 Weight (Pounds): 240 General Appearance: no apparent distress Cardiovascular: normal rate Respiratory/Chest: lungs clear Herberth Manzanares Dec 03, 2017 23:52
[2017-12-04] MEDS ORDERED: NORCO 5-325 TA1 EACH ORAL (14:55)
[2017-12-04] MEDS ORDERED: ELIQUIS5 MG PO (14:55)
[2017-12-04] MEDS ORDERED: LEVAQUIN750 MG ORAL (14:55)
--- NOTE | 2017-12-05 15:11 | Discharge Summary ---
Discharge Summary Hospital Course Date of Admission Nov 26, 2017 at 18:55 Date of Discharge Dec 03, 2017 at 16:10 Admitting Diagnosis CHEST PAIN/ SOB HPI Kay Dias is a 47 year old female who was admitted on Nov 26, 2017 at 18:55 for Chest Pain/Shortnes Of Breath Hospital Course dc summary #[id number] Discharge Medications New Medications: Apixaban (Eliquis) 2.5 Mg Tablet 10 MG ORAL BID for 60 Days, TAB Discharge Condition Upon Discharge: stable Discharge Disposition Patient was discharged to Home (01) Discharge Diagnoses: Discharge Instructions Discharge Instructions Special Instructions I have been assigned to complete a D/C Summary on this account. I was not involved in the patient management rAon Kendrick)Daniella NP Dec 05, 2017 15:11
--- NOTE | 2017-12-06 05:00 | Discharge Summary 2 SIG ---
DATE OF ADMISSION: 11/26/2017 DATE OF DISCHARGE: 12/03/2017 REASON FOR ADMISSION: 47 years old female with a history of PE, DVT, failed therapy on Xarelto, presented to emergency department with chest pain and pain in the left lower extremity. The patient reported chest pain and left calf pain for the last 5 days. The pain reported as sharp, nonradiating, 8/10 on a scale 1 to 10. Upon evaluation in the emergency room, vital signs were stable. Pulse oximetry was stable on room air. left lower extremity Doppler revealed acute DVT of left lower extremity; it also revealed evidence of chronic DVT in left lower extremity. Chest x-ray showed left lung infiltrate, probable pneumonia. EKG showed normal sinus rhythm. No acute ischemic changes. Patient was unable to tolerate CTA. Heparin drip was started. Laboratory workup revealed potassium -5.9. Renal parameters stable. Stable LFT. Troponin was negative. Total CK -175. No leukocytosis, WBC- 10.2, hemoglobin -9.8 and hematocrit -31.4. The patient was admitted with a diagnosis of acute DVT left lower extremity and chest pain. HOSPITAL COURSE: The patient admitted. The patient initially started on empiric antibiotic. ID consult was requested. Hematology consult requested. The patient started on heparin drip to bridge with Coumadin to reach therapeutic INR. Sputum culture was negative. The patient was on antibiotics, status post treatment. The patient was on heparin and Coumadin. INR was subtherapeutic. Upon discharge, the patient was switched to Eliquis and to follow up with order runner as outpatient. CTA was done to rule out PE. CTA showed no evidence of central pulmonary emboli. It also showed linear consolidation versus atelectasis in the left mid lung. The patient status post treatment for presumed pneumonia. ID recommended to keep off antibiotic. The patient was afebrile, no leukocytosis. Hyperkalemia was treated, and potassium was stable thereafter. Anemia workup revealed iron deficiency anemia and anemia of chronic disease. Clam Grower followed. Counts were closely monitored. No need for transfusion unless symptomatic or hemoglobin below 7. Noted elevated LFT. The patient subsequently had hepatitis panel done, which was negative. Abdominal ultrasound revealed hepatomegaly, probably hepatic steatosis. LFTs were trending down. Supplemental oxygen and pulmonary toilet provided as needed. Pulse oximetry was stable on the room air. Antitussive provided as needed. Troponin was negative. EKG showed no acute ischemic changes. Chest pain was probably of pleuritic-type due to bronchitis and pneumonia. The patient was clinically improving. Pain resolved. GI prophylaxis provided. Bowel regimen instituted. All consultants cleared the patient for discharge. FINAL DIAGNOSES: 1. Chest pain, likely due to presumptive pneumonia or bronchitis,- resolved. 2. Acute on chronic deep vein thrombosis, left lower extremity. 3. Left lower extremity pain, secondary to acute deep vein thrombosis. 4. History of pulmonary embolism. 5. Probable pneumonia. 6. Bronchitis. 7. Iron deficiency anemia. 8. Anemia of chronic disease. 9. Elevated liver function tests, trending down. DISCHARGE MEDICATIONS: See medication reconciliation list. DISCHARGE INSTRUCTIONS: The patient was discharged home, follow up with the primary care provider. Prescription for Eliquis provided. Mich Worrell M.D. I have been assigned to dictate discharge summary on this account and I was not involved in the patient's management. Daniella Sharp ([facility]) N.P. DR: BRISSA JOB#: [id number] CC: ASHA
[2017-12-10] MEDS ORDERED: Eliquis 2.5mg tablet ORAL SCH (18:00)
== END 2017-12-03 16:10 | disposition home or self-care (01) | DRG 139 ==
LOC: EMR 18:44 → 2E 18:55 → EDBEDREQ 20:53 → 4E 12-01 14:25
DX: J18.9 Pneumonia, unspecified organism (principal); D68.9 Coagulation defect, unspecified; I82.412 Acute embolism and thrombosis of left femoral vein; E87.5 Hyperkalemia; D63.8 Anemia in other chronic diseases classified elsewhere; I82.532 Chronic embolism and thrombosis of left popliteal vein; F41.9 Anxiety disorder, unspecified; D50.9 Iron deficiency anemia, unspecified; J45.909 Unspecified asthma, uncomplicated; J40 Bronchitis, not specified as acute or chronic; R79.89 Other specified abnormal findings of blood chemistry; Z86.711 Personal history of pulmonary embolism; Z79.01 Long term (current) use of anticoagulants
CPT/HCPCS: 36415; 71045; 71275; 76700; 80053; 80061; 82270; 82378; 82550; 82553; 82607; 82728; 82746; 83540; 83550; 83615; 83735; 83880; 84100; 84238; 84443; 84484; 84550; 84703; 85007; 85025; 85044; 85060; 85610; 85730; 86705; 86709; 86803; 87070; 87205; 87340; 93005; 93970; 99285; J2405

== ENCOUNTER → 2017-12-04 | Emergency (ER) | payer MEDICAID ==
[~2017-12-04] VITALS: Ht 154.9 cm; Wt 106.6 kg
[~2017-12-04] MED LIST: ACETAMINOPHEN-1 EAC1 ORAL; ELIQUIS2.5 MG ORAL; ELIQUIS5 MG PO; Eliquis 2.5mg tablet ORAL ONE; GABAPENTIN400 MG ORAL; GABAPENTIN800 MG ORAL; LEVAQUIN750 MG ORAL; Levofloxacin 500mg tab ORAL ONE; METOPROLOL TART50 M1 ORAL; Morphine Sulfate 4mg/ml Inj IM ONE; NEXIUM40 MG ORAL; NORCO 5-325 TA1 EACH ORAL; TYLENOL EXTRA500 MG ORAL; XARELTO10 MG ORAL
[2017-12-04 14:32] VITALS: BP 129/79
[2017-12-04 15:17] VITALS: BP 129/79
--- NOTE | 2017-12-04 16:22 | Emergency Room Report ---
History of Present Illness General Chief Complaint: Pain Source: Patient Present Illness HPI 47-year-old female presents ED for evaluation. Patient states she's having left lower leg pain. History of PE and DVT. Was discharged from hospital yesterday. Started on Eliquis. Did not fill her prescription yet because of insurance. Denies any chest pain or shortness of breath. Pain is an 8/10, throbbing, nonradiating. No other aggravating or relieving factors. Denies any other associated symptoms Allergies: Coded Allergies: AMOXICILLIN (Verified Allergy, Unknown, 11/26/17) ASPIRIN (Verified Allergy, Unknown, 11/26/17) AZITHROMYCIN (Verified Allergy, Unknown, 11/26/17) CEPHALEXIN (Verified Allergy, Unknown, 11/26/17) CLAVULANIC ACID (Verified Allergy, Unknown, 11/26/17) IBUPROFEN (Verified Allergy, Unknown, 11/26/17) NSAIDS (NON-STEROIDAL ANTI-INFLAMMA (Verified Allergy, Unknown, 11/26/17) TRAMADOL (Verified Allergy, Unknown, 11/26/17) Patient History Past Medical History: none Past Surgical History: none Pertinent Family History: none Social History: Denies: smoking, alcohol use, drug use Last Menstrual Period: Two weeks ago Now: No Immunizations: UTD Reviewed Nursing Documentation: PMH: Agreed, PSxH: Agreed Nursing Documentation-PMH Hx Cardiac Problems: No - Blood clots to both legs, and lungs. Hx Cancer: No Hx Gastrointestinal Problems: No Hx Neurological Problems: No Review of Systems All Other Systems: negative except mentioned in HPI Physical Exam Vital Signs Date Time Temp Pulse Resp B/P (MAP) Pulse Ox O2 Delivery O2 Flow Rate FiO2 12/04/17 14:14 98.5 114 20 129/79 98 Room Air 98.4 Sp02 EP Interpretation: reviewed, normal General Appearance: no apparent distress, alert, GCS 15, non-toxic, lethargic Head: normocephalic, atraumatic Eyes: bilateral eye normal inspection, bilateral eye PERRL ENT: hearing grossly normal, normal pharynx, no angioedema, normal voice Neck: full range of motion, supple/symm/no masses Respiratory: chest non-tender, lungs clear, normal breath sounds, speaking full sentences Cardiovascular #1: regular rate, rhythm, no edema Cardiovascular #2: 2+ carotid (R), 2+ carotid (L), 2+ radial (R), 2+ radial (L) , 2+ dorsalis pedis (R), 2+ dorsalis pedis (L) Gastrointestinal: normal bowel sounds, non tender, soft, non-distended, no guarding, no rebound Rectal: deferred Genitourinary: normal inspection, no CVA tenderness Musculoskeletal: back normal, gait/station normal, normal range of motion, tender - LLE Neurologic: alert, oriented x3, responsive, motor strength/tone normal, sensory intact, speech normal Psychiatric: normal inspection, judgement/insight normal, memory normal, mood/ affect normal, no suicidal/homicidal ideation Reflexes: 3+ bicep (R), 3+ bicep (L), 3+ tricep (R), 3+ tricep (L), 3+ knee (R) , 3+ knee (L) Skin: normal color, no rash, warm/dry, well hydrated Lymphatic: no adenopathy Medical Decision Making Diagnostic Impression: Primary Impression: DVT (deep venous thrombosis) Qualified Codes: I82.402 - Acute embolism and thrombosis of unspecified deep veins of left lower extremity Additional Impression: Pain ER Course Hospital Course 47-year-old female present ED complaining of left calf pain and swelling. recently admitted for DVT Differential diagnoses include: DVT, cellulitis, contusion, abscess Clinical course After initial history and physical I reviewed EMR. Patient admitted for chest pain and acute on chronic DVT. CTA show no evidence of PE. Patient was on Xarelto. Switched to Eliquis. Patient also complaining of low-grade fever. Afebrile here. Had pneumonia during hospital course. Discussed case with admitting physician. Agrees that patient be safely discharged home. Given morphine IM here. Given Levaquin here. Given Eliquis here I. I feel this is a highly complex case requiring extensive working including EKG/Rhythm strip, Xray/CT/US, Blood/urine lab work, repeat exams while in ED, and administration of strong opiates/narcotics for pain control, admission to hospital or close patient follow up. Diagnosis - DVT, pain Stable and discharged to home with Rx Eliquis, [place], Levaquin. Followup with PMD. Return to ED if symptoms recur or worsen Last Vital Signs Date Time Temp Pulse Resp B/P (MAP) Pulse Ox O2 Delivery O2 Flow Rate FiO2 12/04/17 15:17 98.5 114 20 129/79 98 Room Air 98.5 Status: improved Disposition: HOME, SELF-CARE Condition: Improved Scripts Levofloxacin* (LEVAQUIN*) 750 Mg Tablet 750 MG ORAL DAILY for 7 Days, TAB Prov: ANGELA SOSA M.D. 12/04/17 Hydrocodone Bit/Acetaminophen 5-325* (NORCO 5-325*) 1 Each Tablet 1 TAB ORAL Q6H Y for For Pain, #20 TAB 0 Refills Prov: ANGELA SOSA M.D. 12/04/17 Apixaban (ELIQUIS) 5 Mg Tablet 5 MG PO BID for 21 Days, TAB Prov: ANGELA SOSA M.D. 12/04/17 Apixaban (ELIQUIS) 5 Mg Tablet 10 MG PO BID for 7 Days, TAB Prov: ANGELA SOSA M.D. 12/04/17 Referrals: NOT CHOSEN BRIAN/,REFERRING (PCP) Patient Instructions: Deep Vein Thrombosis ANGELA SOSA M.D. Dec 04, 2017 16:22
== END | disposition home or self-care (01) ==
LOC: EMR 14:25
DX: I82.402 Acute embolism and thrombosis of unspecified deep veins of left lower extremity (principal); Z88.0 Allergy status to penicillin; Z88.6 Allergy status to analgesic agent; Z88.8 Allergy status to other drugs, medicaments and biological substances
CPT/HCPCS: 96372; 99284; J2270

== ENCOUNTER 2017-12-06 22:48 | Emergency (ER) | payer MEDICAID ==
[~2017-12-06] VITALS: Ht 154.9 cm; Wt 104.3 kg
[~2017-12-06 22:48] MED LIST changes: -ACETAMINOPHEN-1 EAC1 ORAL; -Eliquis 2.5mg tablet ORAL ONE; -Levofloxacin 500mg tab ORAL ONE; -Morphine Sulfate 4mg/ml Inj IM ONE
[2017-12-06] MEDS ORDERED: Morphine Sulfate 4mg/ml Inj IM ONE (23:15)
[2017-12-06 23:53] VITALS: BP 109/72
--- NOTE | 2017-12-07 05:44 | Emergency Room Report ---
History of Present Illness General Chief Complaint: Lower Extremity Injury Source: Patient, Medical Record Present Illness HPI 47-year-old female presents ED complaining of left leg pain. Denies trauma. Patient has history of DVT. History of PE. Was recently admitted here for DVT. States she was discharged on Eliquis. States she is compliant with the medication. States that the pain is not improving. 10 out of 10, throbbing, nonradiating. Denies chest pain or shortness of breath. No other aggravating relieving factors. Denies any other associated symptoms Allergies: Coded Allergies: AMOXICILLIN (Verified Allergy, Unknown, 11/26/17) ASPIRIN (Verified Allergy, Unknown, 11/26/17) AZITHROMYCIN (Verified Allergy, Unknown, 11/26/17) CEPHALEXIN (Verified Allergy, Unknown, 11/26/17) CLAVULANIC ACID (Verified Allergy, Unknown, 11/26/17) IBUPROFEN (Verified Allergy, Unknown, 11/26/17) NSAIDS (NON-STEROIDAL ANTI-INFLAMMA (Verified Allergy, Unknown, 11/26/17) TRAMADOL (Verified Allergy, Unknown, 11/26/17) Patient History Past Medical History: none Past Surgical History: none Pertinent Family History: none Social History: Denies: smoking, alcohol use, drug use Last Menstrual Period: none Now: No Immunizations: UTD Reviewed Nursing Documentation: PMH: Agreed, PSxH: Agreed Nursing Documentation-PMH Hx Cardiac Problems: No - Blood clots to both legs, and lungs. Hx Cancer: No Hx Gastrointestinal Problems: No Hx Neurological Problems: No Review of Systems All Other Systems: negative except mentioned in HPI Physical Exam Vital Signs Date Time Temp Pulse Resp B/P (MAP) Pulse Ox O2 Delivery O2 Flow Rate FiO2 12/06/17 23:08 98.7 96 18 109/72 98 Room Air 98.8 Sp02 EP Interpretation: reviewed, normal General Appearance: no apparent distress, alert, GCS 15, non-toxic Head: normocephalic Eyes: bilateral eye normal inspection, bilateral eye PERRL ENT: normal ENT inspection Neck: normal inspection Respiratory: chest non-tender, lungs clear, normal breath sounds, speaking full sentences Cardiovascular #1: regular rate, rhythm, no edema Gastrointestinal: normal bowel sounds, non tender, soft, non-distended, no guarding, no rebound Rectal: deferred Genitourinary: no CVA tenderness Musculoskeletal: tender - LLE Neurologic: alert, oriented x3, responsive, motor strength/tone normal, sensory intact, speech normal Psychiatric: normal inspection Skin: normal inspection Lymphatic: normal inspection Medical Decision Making Diagnostic Impression: Primary Impression: DVT (deep venous thrombosis) Qualified Codes: I82.402 - Acute embolism and thrombosis of unspecified deep veins of left lower extremity Additional Impression: Pain ER Course Hospital Course 47-year-old female present ED complaining of left calf pain. h/o DVT Differential diagnoses include: DVT, cellulitis, contusion, abscess Clinical course Patient placed on stretcher after initial history and physical I ordered pain meds Patient recently admitted here for workup. CT angios show no evidence of PE. There was acute on chronic DVT in the left lower extremity. Patient was sitting Xarelto. Patient was switched to Eliquis. Patient was seen here shortly after discharge with similar pain. Patient had not yet filled her Eliquis rx. Speaking to the admitting physicians there was concern of opioid dependence On last visit I had prescribed patient [place] for pain. Patient states pain is persisting out of proportion to presentation. I agree with assessment of opioid dependence. Patient will receive no additional prescriptions. I recommended patient followup with PMD as outpatient, continue Eliquis as prescribed I. I feel this is a highly complex case requiring extensive working including EKG/Rhythm strip, Xray/CT/US, Blood/urine lab work, repeat exams while in ED, and administration of strong opiates/narcotics for pain control, admission to hospital or close patient follow up. Diagnosis - DVT, pain Stable and discharged to home. continue Eliquis as prescribed. Followup with PMD. Return to ED if symptoms recur or worsen Last Vital Signs Date Time Temp Pulse Resp B/P (MAP) Pulse Ox O2 Delivery O2 Flow Rate FiO2 12/06/17 23:53 96 18 109/72 98 Room Air 12/06/17 23:08 98.7 98.8 Status: improved Disposition: HOME, SELF-CARE Condition: Stable Referrals: NOT CHOSEN IPA/,REFERRING (PCP) Patient Instructions: Deep Vein Thrombosis ANGELA SOSA M.D. Dec 07, 2017 05:43
== END 2017-12-07 04:28 | disposition home or self-care (01) ==
LOC: EMR 23:24
DX: I82.402 Acute embolism and thrombosis of unspecified deep veins of left lower extremity (principal); M79.605 Pain in left leg; Z79.01 Long term (current) use of anticoagulants; Z88.6 Allergy status to analgesic agent; Z88.8 Allergy status to other drugs, medicaments and biological substances
CPT/HCPCS: 96372; 99283; J2270

== ENCOUNTER 2017-12-16 14:11 | Inpatient (IN) | payer MEDICAID ==
[2017-12-16] VITALS (7 sets, daily range): BP systolic 102–116; BP diastolic 45–76
[~2017-12-16] VITALS: Ht 154.9 cm; Wt 104.3 kg
[2017-12-16] MEDS ORDERED: Morphine Sulfate 4mg/ml Inj IVP ONE (14:30)
--- NOTE | 2017-12-16 14:30 | Emergency Room Report ---
History of Present Illness General Chief Complaint: Lower Back Pain or Injury Source: Patient Present Illness HPI Patient presents with 2 problems. She was awakened this morning at 8:00 by lower back pain. She has chronic low back pain but this is somewhat worsened. She tried taking Tylenol a few hours ago. The pain does not radiate. She's on Eliquist for DVT. She states she's a few hours late for her dose. She denies any other bleeding problems. She's had PEs also and states recent w/u negative for PE. The second problem is that 3 weeks ago she was diagnosed with a DVT of the left lower leg. This is why she is taking Eliquist. She states the pain has been increasing there. She has pain when she dorsiflexes her foot. No numbness. She's felt feverish and chills but not documented. There's no nausea vomiting diarrhea change in bowels melena, hematochezia. She denies any dysuria. Last menses 3 weeks ago. In wheel chair. Allergies: Coded Allergies: AMOXICILLIN (Verified Allergy, Unknown, 11/26/17) ASPIRIN (Verified Allergy, Unknown, 11/26/17) AZITHROMYCIN (Verified Allergy, Unknown, 11/26/17) CEPHALEXIN (Verified Allergy, Unknown, 11/26/17) CLAVULANIC ACID (Verified Allergy, Unknown, 11/26/17) IBUPROFEN (Verified Allergy, Unknown, 11/26/17) NSAIDS (NON-STEROIDAL ANTI-INFLAMMA (Verified Allergy, Unknown, 11/26/17) TRAMADOL (Verified Allergy, Unknown, 11/26/17) Patient History Past Medical History: see triage record Past Surgical History: other - IVC filter Social History Narrative [place] Reviewed Nursing Documentation: PMH: Agreed, PSxH: Agreed Nursing Documentation-PMH Hx Cardiac Problems: No - Blood clots to both legs, and lungs. Hx Cancer: No Hx Gastrointestinal Problems: No Hx Neurological Problems: No Review of Systems All Other Systems: negative except mentioned in HPI Physical Exam Vital Signs Date Time Temp Pulse Resp B/P (MAP) Pulse Ox O2 Delivery O2 Flow Rate FiO2 12/16/17 14:22 97.5 95 21 123/75 100 Room Air 97.5 Sp02 EP Interpretation: reviewed, normal General Appearance: well appearing, no apparent distress, GCS 15 Head: normocephalic Eyes: bilateral eye normal inspection ENT: moist mucus membranes Neck: supple Respiratory: lungs clear, normal breath sounds Cardiovascular #1: regular rate, rhythm Cardiovascular #2: 2+ radial (R) Gastrointestinal: normal inspection, normal bowel sounds, non tender, no mass, non-distended Musculoskeletal: digits/nails normal, calf tenderness, tender - lumbar area, not point/bony tenderness Neurologic: alert, oriented x3 Psychiatric: mood/affect normal Skin: normal inspection, warm/dry Medical Decision Making Diagnostic Impression: Primary Impression: Intractable back pain Additional Impressions: Left leg DVT Qualified Codes: I82.492 - Acute embolism and thrombosis of other specified deep vein of left lower extremity Left renal mass ER Course The patient presents with back pain and left calf pain. She's on Eliquist at this time. This makes her back pain more serious and because of that we need to exclude a epidural hematoma. A CT lumbar spine with contrast will be ordered. In addition to that she has pain in her calf. She's has a diagnosis of DVT. Noninvasive vascular studies will be performed to see if this has propagated. She will treated with mild IV hydration and also analgesia. In addition to that we will evaluated with EKG, labs including urinalysis. With lack of chest symptoms, doubt PE. EKG without injury. Labs with normal WBC and slightly low H/H. CMP unremarkable. Coags normal (as expected). Requiring repeated doses for lumbar pain. Non invasive vascular study shows increased collateral flow and suggests no extension of clot. Delay for CT. No evidence of epidural hematoma. (CT cannot exclude this completely.) Still with pain. Admit Dr. Anaid dunn. Laboratory Tests Test 12/16/17 15:30 12/16/17 18:50 White Blood Count 5.7 K/UL (4.8-10.8) Red Blood Count 4.81 M/UL (4.20-5.40) Hemoglobin 10.7 G/DL (12.0-16.0) L Hematocrit 34.2 % (37.0-47.0) L Mean Corpuscular Volume 71 FL (80-99) L Mean Corpuscular Hemoglobin 22.3 PG (27.0-31.0) L Mean Corpuscular Hemoglobin Concent 31.4 G/DL (32.0-36.0) L Red Cell Distribution Width 15.5 % (11.6-14.8) H Platelet Count 456 K/UL (150-450) H Mean Platelet Volume 5.2 FL (6.5-10.1) L Neutrophils (%) (Auto) 52.3 % (45.0-75.0) Lymphocytes (%) (Auto) 39.7 % (20.0-45.0) Monocytes (%) (Auto) 4.9 % (1.0-10.0) Eosinophils (%) (Auto) 0.9 % (0.0-3.0) Basophils (%) (Auto) 2.2 % (0.0-2.0) H Prothrombin Time 9.9 SEC (9.30-11.50) Prothrombin Time INR 0.9 (0.9-1.1) PTT 20 SEC (23-33) L Sodium Level 132 MMOL/L (136-145) L Potassium Level 4.0 MMOL/L (3.5-5.1) Chloride Level 101 MMOL/L (98-107) Carbon Dioxide Level 26 MMOL/L (21-32) Anion Gap 5 mmol/L (5-15) Blood Urea Nitrogen 9 mg/dL (7-18) Creatinine 0.9 MG/DL (0.55-1.30) Estimate Glomerular Filtration Rate > 60 mL/min (>60) Glucose Level 91 MG/DL (74-106) Calcium Level 9.2 MG/DL (8.5-10.1) Total Bilirubin 0.5 MG/DL (0.2-1.0) Aspartate Amino Transferase (AST) 17 U/L (15-37) Alanine Aminotransferase (ALT) 26 U/L (12-78) Alkaline Phosphatase 109 U/L (46-116) Total Protein 7.9 G/DL (6.4-8.2) Albumin 3.3 G/DL (3.4-5.0) L Globulin 4.6 g/dL Albumin/Globulin Ratio 0.7 (1.0-2.7) L Urine Color Pale yellow Urine Appearance Clear Urine pH 7 (4.5-8.0) Urine Specific [place] 1.005 (1.005-1.035) Urine Protein Negative (NEGATIVE) Urine Glucose (UA) Negative (NEGATIVE) Urine Ketones Negative (NEGATIVE) Urine Occult Blood Negative (NEGATIVE) Urine Nitrite Negative (NEGATIVE) Urine Bilirubin Negative (NEGATIVE) Urine Urobilinogen Normal MG/DL (0.0-1.0) Urine Leukocyte Esterase 1+ (NEGATIVE) H Urine RBC 0-2 /HPF (0 - 2) Urine WBC 0-2 /HPF (0 - 2) Urine Squamous Epithelial Cells Moderate /LPF (NONE/OCC) H Urine Bacteria Few /HPF (NONE) Urine HCG, Qualitative Negative EKG Diagnostic Results Rate: normal Rhythm: NSR ST Segments: no acute changes Rhythm Strip Diag. Results EP Interpretation: yes Rhythm: NSR, no PVC's, no ectopy CT/MRI/US Diagnostic Results CT/MRI/US Diagnostic Results : Imaging Test Ordered: spine Impression No acute fracture or subluxation. 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 Severe bilateral neural foraminal narrowing L4-L5 and No evidence of filling defects within the visual IVC infrarenal IVC filter is present. 4 cm left renal mass incompletely characterized. U/S be useful to exclude renal malignancy. Last Vital Signs Date Time Temp Pulse Resp B/P (MAP) Pulse Ox O2 Delivery O2 Flow Rate FiO2 12/16/17 23:35 97.6 83 20 105/59 98 Room Air 97.6 Status: improved Disposition: ADMITTED INPATIENT Condition: Serious Referrals: NOT CHOSEN IPA/,REFERRING (PCP) August Nino M.D. Dec 16, 2017 14:30
[2017-12-16] MEDS ORDERED: Hydromorphone 0.5mg/0.5ml inj IVP ONE (15:45)
[2017-12-16 15:48] LABS: BASOPHILS % (AUTO) 2.2 % (0.0-2.0); EOSINOPHILS % (AUTO) 0.9 % (0.0-3.0); HEMATOCRIT 34.2 % (37.0-47.0); HEMOGLOBIN 10.7 G/DL (12.0-16.0); LYMPHOCYTES % (AUTO) 39.7 % (20.0-45.0); MEAN CORPUSCULAR VOLUME 71 FL (80-99); MONOCYTES % (AUTO) 4.9 % (1.0-10.0); NEUTROPHILS % (AUTO) 52.3 % (45.0-75.0); PLATELET COUNT 456 K/UL (150-450); RED BLOOD COUNT 4.81 M/UL (4.20-5.40); RED CELL DISTRIBUTION WIDTH 15.5 % (11.6-14.8); WHITE BLOOD COUNT 5.7 K/UL (4.8-10.8)
[2017-12-16 16:04] LABS: INR 0.9 (0.9-1.1)
[2017-12-16 16:18] LABS: ANION GAP 5 mmol/L (5-15); BLOOD UREA NITROGEN 9 mg/dL (7-18); CALCIUM 9.2 MG/DL (8.5-10.1); CARBON DIOXIDE 26 MMOL/L (21-32); CHLORIDE 101 MMOL/L (98-107); CREATININE 0.9 MG/DL (0.55-1.30); SODIUM 132 MMOL/L (136-145)
[2017-12-16 16:22] LABS: ALANINE AMINOTRANSFERASE 26 U/L (12-78); ALBUMIN 3.3 G/DL (3.4-5.0); ALBUMIN/GLOBULIN RATIO 0.7 (1.0-2.7); ALKALINE PHOSPHATASE 109 U/L (46-116); ASPARTATE AMINO TRANSFERASE 17 U/L (15-37); BILIRUBIN,TOTAL 0.5 MG/DL (0.2-1.0)
[2017-12-16] MEDS ORDERED: HYDROmorphone 1mg/ml Carpuject IVP ONE ×2 (18:45→21:00)
[2017-12-16 19:30] LABS: APPEARANCE,URINE CLEAR; BILIRUBIN, URINE NEGATIVE (NEGATIVE); COLOR,URINE PALE YELLOW; GLUCOSE, URINE (UA) NEGATIVE (NEGATIVE); KETONES,URINE NEGATIVE (NEGATIVE); LEUKOCYTE ESTERASE ,URINE 1+ (NEGATIVE); NITRITE,URINE NEGATIVE (NEGATIVE); PH,URINE 7 (4.5-8.0); PROTEIN,URINE NEGATIVE (NEGATIVE); UROBILINOGEN,URINE NORMAL MG/DL (0.0-1.0)
[2017-12-16] MEDS ORDERED: Mylanta II UD 30ml ORAL PRN (23:45)
[2017-12-16] MEDS ORDERED: Miralax 17gm pkt ORAL PRN (23:45)
[2017-12-16] MEDS ORDERED: Zolpidem 5mg tab ORAL PRN (23:45)
[2017-12-16] MEDS ORDERED: LORazepam Inj 2mg/ml 1ml IV PRN (23:45)
[2017-12-17 04:00] VITALS: BP 102/69
[2017-12-17] MEDS: Norco 5mg/325mg tab ORAL PRN ×2 (06:56→12:52)
[2017-12-17 08:00] VITALS: BP 101/62
[2017-12-17 08:55] LABS: BASOPHILS % (AUTO) 1.4 % (0.0-2.0); EOSINOPHILS % (AUTO) 2.6 % (0.0-3.0); HEMATOCRIT 28.3 % (37.0-47.0); HEMOGLOBIN 8.9 G/DL (12.0-16.0); LYMPHOCYTES % (AUTO) 39.6 % (20.0-45.0); MEAN CORPUSCULAR VOLUME 72 FL (80-99); MONOCYTES % (AUTO) 9.9 % (1.0-10.0); NEUTROPHILS % (AUTO) 46.6 % (45.0-75.0); PLATELET COUNT 298 K/UL (150-450); RED BLOOD COUNT 3.92 M/UL (4.20-5.40); RED CELL DISTRIBUTION WIDTH 15.3 % (11.6-14.8); WHITE BLOOD COUNT 5.7 K/UL (4.8-10.8)
[2017-12-17 09:36] LABS: ALANINE AMINOTRANSFERASE 24 U/L (12-78); ALBUMIN 2.8 G/DL (3.4-5.0); ALBUMIN/GLOBULIN RATIO 0.7 (1.0-2.7); ALKALINE PHOSPHATASE 92 U/L (46-116); ANION GAP 7 mmol/L (5-15); ASPARTATE AMINO TRANSFERASE 23 U/L (15-37); BILIRUBIN,TOTAL 0.3 MG/DL (0.2-1.0); BLOOD UREA NITROGEN 10 mg/dL (7-18); CALCIUM 8.8 MG/DL (8.5-10.1); CARBON DIOXIDE 25 MMOL/L (21-32); CHLORIDE 105 MMOL/L (98-107); CHOLESTEROL 134 MG/DL (< 200); CREATININE 0.9 MG/DL (0.55-1.30); HDL CHOLESTEROL 44 MG/DL (40-60); SODIUM 137 MMOL/L (136-145); TRIGLYCERIDES 183 MG/DL (30-150)
--- NOTE | 2017-12-17 09:40 | Diagnostic Imaging Report ---
Indication: Back pain Technique: Continuous helical transaxial imaging of the lumbar spine was obtained from the lung bases to the pubic symphysis. No IV contrast was administered. Coronal 2-D reformats were also obtained. Study obtained in a Siemens sensation [address] IV contrast given. Total Dose length Product (DLP): 1263.[address] Dose Index Volume (CTDIvol): 34.52 mGy Comparison: None Findings: There is no evidence of an acute fracture or malalignment. Pars interarticularis defect demonstrated at L4 bilaterally. There is anterolisthesis L4 on 5. Narrowing of the neural foramen demonstrated at L4-5. There is marked narrowing of the L4-5 disc. Hypertrophied facets demonstrated in the lower lumbar spine. IVC filter noted. Partially imaged cyst in the left kidney demonstrated. IMPRESSION: No acute injury appreciated. L4 spondylolysis. Grade 1 spondylolisthesis L4 on 5. Moderate disc disease. Multilevel facet arthropathy. Osteoporosis IVC filter [facility] has communicated the preliminary results to the Emergency Department. Their findings are largely concordant with this report. The CT scanner at [facility] is accredited by the [employer] and the scans are performed using dose optimization techniques as appropriate to a performed exam including Automatic Exposure control.
[2017-12-17 12:00] VITALS: BP 110/62
--- NOTE | 2017-12-17 15:29 | History and Physical ---
History of Present Illness General Date patient seen: Dec 17, 2017 Reason for Hospitalization: Lower Back Pain or Injury Present Illness HPI 47 year old female with hx of DVT, chronic back pain, presented to ER with CC of lower back pain. She has chronic low back pain but this is somewhat worsened. She's on Eliquist for DVT. She states the pain has been increasing in right lower extremity. she is admitted for intractable back pain and worsening DVt. Allergies: Coded Allergies: AMOXICILLIN (Verified Allergy, Unknown, 11/26/17) ASPIRIN (Verified Allergy, Unknown, 11/26/17) AZITHROMYCIN (Verified Allergy, Unknown, 11/26/17) CEPHALEXIN (Verified Allergy, Unknown, 11/26/17) CLAVULANIC ACID (Verified Allergy, Unknown, 11/26/17) IBUPROFEN (Verified Allergy, Unknown, 11/26/17) NSAIDS (NON-STEROIDAL ANTI-INFLAMMA (Verified Allergy, Unknown, 11/26/17) TRAMADOL (Verified Allergy, Unknown, 11/26/17) Medication History Scheduled Apixaban (Eliquis), 10 MG ORAL BID Apixaban (Eliquis), 10 MG PO BID Apixaban (Eliquis), 5 MG PO BID Esomeprazole Magnesium (Nexium), 40 MG ORAL DAILY, (Reported) Gabapentin* (Gabapentin*), 1,200 MG ORAL THREE TIMES A DAY, (Reported) Levofloxacin* (Levaquin*), 750 MG ORAL DAILY Metoprolol Tartrate* (Metoprolol Tartrate*), 50 MG ORAL DAILY, (Reported) Rivaroxaban (Xarelto*), 10 MG ORAL DAILY, (Reported) Scheduled PRN Acetaminophen* (Tylenol Extra Strength*), 1,000 MG ORAL Q6H PRN for Mild Pain/ Temp > 100.5, (Reported) Hydrocodone Bit/Acetaminophen 5-325* (Butler 5-325*), 1 TAB ORAL Q6H PRN for For Pain Patient History Healthcare decision maker Resuscitation status Advanced Directive on File Past Medical/Surgical History Past Medical/Surgical History: (1) Left leg DVT Review of Systems All Other Systems: negative except mentioned in HPI Physical Exam General Appearance: WD/WN, no apparent distress Lines, tubes and drains: peripheral HEENT: normocephalic, anicteric Neck: non-tender, normal alignment Respiratory/Chest: chest wall non-tender, lungs clear Breasts: no masses Cardiovascular/Chest: normal rate Abdomen: normal bowel sounds Last 24 Hour Vital Signs Date Time Temp Pulse Resp B/P (MAP) Pulse Ox O2 Delivery O2 Flow Rate FiO2 12/17/17 12:00 97.7 82 20 110/62 98 Room Air 97.7 12/17/17 08:00 97.4 77 19 101/62 97 Room Air 97.4 12/17/17 04:00 98.2 86 17 102/69 95 Room Air 98.2 12/16/17 23:35 97.6 83 20 105/59 98 Room Air 97.6 12/16/17 23:30 80 18 102/56 99 Room Air 12/16/17 23:30 98.1 80 18 102/56 99 Room Air 208.6 12/16/17 21:30 82 18 116/65 99 Room Air 12/16/17 21:01 98.1 12/16/17 19:09 98.1 12/16/17 18:45 98.1 83 22 102/53 97 Room Air 98.1 12/16/17 18:39 98.0 12/16/17 17:23 98.0 76 24 113/76 100 Room Air 98.0 12/16/17 16:17 98.0 12/16/17 15:51 98.0 79 20 108/45 100 Room Air 98.0 12/16/17 15:47 97.5 12/16/17 15:32 97.5 Intake and Output 12/16/17 12/17/17 19:00 07:00 Intake Total 0 ml 300 ml Balance 0 ml 300 ml Intake Oral 0 ml IV Total 300 ml # Voids 1 Laboratory Tests Test 12/16/17 15:30 12/16/17 18:50 12/17/17 08:00 White Blood Count 5.7 K/UL (4.8-10.8) 5.7 K/UL (4.8-10.8) Red Blood Count 4.81 M/UL (4.20-5.40) 3.92 M/UL (4.20-5.40) L Hemoglobin 10.7 G/DL (12.0-16.0) L 8.9 G/DL (12.0-16.0) L Hematocrit 34.2 % (37.0-47.0) L 28.3 % (37.0-47.0) L Mean Corpuscular Volume 71 FL (80-99) L 72 FL (80-99) L Mean Corpuscular Hemoglobin 22.3 PG (27.0-31.0) L 22.6 PG (27.0-31.0) L Mean Corpuscular Hemoglobin Concent 31.4 G/DL (32.0-36.0) L 31.3 G/DL (32.0-36.0) L Red Cell Distribution Width 15.5 % (11.6-14.8) H 15.3 % (11.6-14.8) H Platelet Count 456 K/UL (150-450) H 298 K/UL (150-450) Mean Platelet Volume 5.2 FL (6.5-10.1) L 5.4 FL (6.5-10.1) L Neutrophils (%) (Auto) 52.3 % (45.0-75.0) 46.6 % (45.0-75.0) Lymphocytes (%) (Auto) 39.7 % (20.0-45.0) 39.6 % (20.0-45.0) Monocytes (%) (Auto) 4.9 % (1.0-10.0) 9.9 % (1.0-10.0) Eosinophils (%) (Auto) 0.9 % (0.0-3.0) 2.6 % (0.0-3.0) Basophils (%) (Auto) 2.2 % (0.0-2.0) H 1.4 % (0.0-2.0) Prothrombin Time 9.9 SEC (9.30-11.50) Prothromb Time International Ratio 0.9 (0.9-1.1) Activated Partial Thromboplast Time 20 SEC (23-33) L Sodium Level 132 MMOL/L (136-145) L 137 MMOL/L (136-145) Potassium Level 4.0 MMOL/L (3.5-5.1) 4.0 MMOL/L (3.5-5.1) Chloride Level 101 MMOL/L (98-107) 105 MMOL/L (98-107) Carbon Dioxide Level 26 MMOL/L (21-32) 25 MMOL/L (21-32) Anion Gap 5 mmol/L (5-15) 7 mmol/L (5-15) Blood Urea Nitrogen 9 mg/dL (7-18) 10 mg/dL (7-18) Creatinine 0.9 MG/DL (0.55-1.30) 0.9 MG/DL (0.55-1.30) Estimat Glomerular Filtration Rate > 60 mL/min (>60) > 60 mL/min (>60) Glucose Level 91 MG/DL (74-106) 100 MG/DL (74-106) Calcium Level 9.2 MG/DL (8.5-10.1) 8.8 MG/DL (8.5-10.1) Total Bilirubin 0.5 MG/DL (0.2-1.0) 0.3 MG/DL (0.2-1.0) Aspartate Amino Transf (AST/SGOT) 17 U/L (15-37) 23 U/L (15-37) Alanine Aminotransferase (ALT/SGPT) 26 U/L (12-78) 24 U/L (12-78) Alkaline Phosphatase 109 U/L (46-116) 92 U/L (46-116) Total Protein 7.9 G/DL (6.4-8.2) 7.0 G/DL (6.4-8.2) Albumin 3.3 G/DL (3.4-5.0) L 2.8 G/DL (3.4-5.0) L Globulin 4.6 g/dL 4.2 g/dL Albumin/Globulin Ratio 0.7 (1.0-2.7) L 0.7 (1.0-2.7) L Urine Color Pale yellow Urine Appearance Clear Urine pH 7 (4.5-8.0) Urine Specific [place] 1.005 (1.005-1.035) Urine Protein Negative (NEGATIVE) Urine Glucose (UA) Negative (NEGATIVE) Urine Ketones Negative (NEGATIVE) Urine Occult Blood Negative (NEGATIVE) Urine Nitrite Negative (NEGATIVE) Urine Bilirubin Negative (NEGATIVE) Urine Urobilinogen Normal MG/DL (0.0-1.0) Urine Leukocyte Esterase 1+ (NEGATIVE) H Urine RBC 0-2 /HPF (0 - 2) Urine WBC 0-2 /HPF (0 - 2) Urine Squamous Epithelial Cells Moderate /LPF (NONE/OCC) H Urine Bacteria Few /HPF (NONE) Urine HCG, Qualitative Negative Triglycerides Level 183 MG/DL (30-150) H Cholesterol Level 134 MG/DL (< 200) LDL Cholesterol 75 mg/dL (<100) HDL Cholesterol 44 MG/DL (40-60) Cholesterol/HDL Ratio 3.0 (3.3-4.4) L Thyroid Stimulating Hormone (TSH) 1.059 uiU/mL (0.358-3.740) Height (Feet): 5 Height (Inches): 1.00 Weight (Pounds): 230 Medications Current Medications Medications (Trade) Dose Ordered Sig/Kike Route PRN Reason Start Time Stop Time Status Last Admin Dose Admin Acetaminophen (Tylenol) 650 mg Q4H PRN ORAL fever 12/16/17 23:45 01/15/18 23:44 Acetaminophen/ Hydrocodone Bitart (Butler 5/325) 1 tab Q6H PRN ORAL For Pain 12/17/17 06:45 12/24/17 06:44 12/17/17 12:52 Al Hydroxide/Mg Hydroxide (Mylanta II) 30 ml Q6H PRN ORAL dyspepsia 12/16/17 23:45 01/15/18 23:44 Apixaban (Eliquis) 10 mg BID ORAL 12/17/17 09:00 01/16/18 08:59 UNV Dextrose (Dextrose 50%) STAT PRN IV Hypoglycemia 12/16/17 23:45 01/15/18 23:44 Gabapentin (Neurontin) 1,200 mg THREE TIMES A DAY ORAL 12/17/17 09:00 01/16/18 08:59 12/17/17 12:52 Lorazepam (Ativan 2mg/ml 1ml) 0.5 mg Q4H PRN IV For Anxiety 12/16/17 23:45 12/23/17 23:44 Ondansetron HCl (Zofran) 4 mg Q6H PRN IVP Nausea & Vomiting 12/16/17 23:45 01/15/18 23:44 Polyethylene Glycol (Miralax) 17 gm HSPRN PRN ORAL Constipation 12/16/17 23:45 01/15/18 23:44 Sodium Chloride 1,000 ml @ 150 mls/hr Q6H40M IV 12/16/17 14:30 01/15/18 14:29 12/17/17 04:22 Zolpidem Tartrate (Ambien) 5 mg HSPRN PRN ORAL Insomnia 12/16/17 23:45 12/23/17 23:44 Assessment/Plan Problem List: (1) DVT (deep venous thrombosis) ICD Codes: I82.409 - Acute embolism and thrombosis of unspecified deep veins of unspecified lower extremity SNOMED: 613806347 (2) Left leg DVT ICD Codes: I82.402 - Acute embolism and thrombosis of unspecified deep veins of left lower extremity SNOMED: 053418112 Qualifiers: Qualified Codes: I82.492 - Acute embolism and thrombosis of other specified deep vein of left lower extremity (3) Intractable back pain ICD Codes: M54.9 - Dorsalgia, unspecified SNOMED: 545144333 Assessment/Plan hematology to see pain management social worker health services for homelessness GORAN BROOKS Dec 17, 2017 15:29
[2017-12-17] MEDS ORDERED: HYDROmorphone 1mg/ml Carpuject IVP PRN (15:30)
[2017-12-17 16:00] VITALS: BP 109/74
[2017-12-17] MEDS: Eliquis 2.5mg tablet ORAL SCH (17:40)
[2017-12-17 18:27] LABS: % IRON SATURATION 7 % (15-50); IRON 27 ug/dL (50-175); TOTAL IRON BINDING CAPACITY 400 ug/dL (250-450)
[2017-12-17 18:40] LABS: FERRITIN 13 NG/ML (8-388)
[2017-12-17 20:00] VITALS: BP 111/74
[2017-12-17] MEDS ORDERED: Iron Sucrose 100 MG in NS 55 ML IV SCH (21:00)
[2017-12-17] MEDS: Hydromorphone 0.5mg/0.5ml inj IVP PRN (21:44)
[2017-12-18] VITALS: BP_SYST 111; BP_SYST 114; BP_DIAS 74; BP_DIAS 76
[2017-12-18 04:00] VITALS: BP 112/72
--- NOTE | 2017-12-18 05:15 | Consultation ---
DATE OF CONSULTATION: 12/17/2017 NOTE: POOR AUDIO HEMATOLOGY/ONCOLOGY CONSULTATION CONSULTING PHYSICIAN: Herberth Manzanares M.D. REFERRING PHYSICIAN: Mich Worrell M.D. REASON FOR CONSULTATION: Evaluation of ongoing anemia. IDENTIFYING DATA: Dear Dr. Worrell, The patient is a pleasant 47-year-old female, who was diagnosed with DVT on the left leg with thrombosis superficial femoral vein, IVC filter is in place, again has left leg superficial femoral to popliteal vein DVT large collateral vein noted. The patient actually recently admitted beginning in November, at which time I saw the patient as well, had DVT of the lower extremity, appears to have IVC filter that is in place and also pulmonary embolism, discharged on apixaban, at this time she presents to [facility] with intractable back pain, which is chronic, sometimes worsen again Eliquis, states that she has had increasing right lower extremity pain, admitted for intractable back pain as well as worsening DVT. Hematology Service consulted. PAST MEDICAL HISTORY: As noted above. PAST SURGICAL HISTORY: None. MEDICATIONS: Apixaban, esomeprazole, , metoprolol, and Eliquis. Medications currently . ALLERGIES: Amoxicillin, aspirin, Zithromax, Keflex, . REVIEW OF SYSTEMS: CONSTITUTIONAL: No fevers, chills, or night sweats. SKIN: No rashes, bumps, or itching. HEENT: No headache, hearing or vision changes. BREASTS: No lumps, pain, or discharge. PULMONARY: No cough, sputum, or shortness of breath. GASTROINTESTINAL: No nausea, vomiting, or diarrhea. GENITOURINARY: No dysuria, frequency, or urgency. MUSCULOSKELETAL: No joint swelling, muscle pain, or trauma. PHYSICAL EXAMINATION: VITAL SIGNS: Reviewed. GENERAL: No acute distress. PULMONARY: Decreased breath sounds. CARDIOVASCULAR: Regular rate. No S3 or S4. ABDOMEN: Soft, nontender, and nondistended. EXTREMITIES: The left lower extremity with 1+ to 2+ edema. LABORATORY DATA: WBC is 5.7, hemoglobin 8.9, hematocrit 28, and platelet count 298,000. ASSESSMENT AND RECOMMENDATIONS: 1. Left lower extremity deep vein thrombosis. At this time, the patient's hemoglobin and hematocrit currently . Did not recommend the patient to be changed with regard to her anticoagulation. She again complains of left lower extremity pain. At this time, continue Eliquis. The patient was recently admitted. consider to change to heparin drip, however, the patient does have an IVC filter which was noted. 2. Anemia of iron deficiency. We will obtain a ferritin and TIBC. low, begin the patient on iron. If ferritin remains low, less than 50, begin the patient on iron. 3. Hyponatremia. Continue to closely monitor. Nephrology evaluation. 4. Pulmonary embolism, has been on the Eliquis recently. Again, DVT, IVC filter, which is noted in place. 5. concerning for gastrointestinal bleed. Evaluate per Gastrointestinal Service. I appreciate the consultation. Herberth Manzanares M.D. DR: GRETCHEN JOB#: [id number] CC:
[2017-12-18] MEDS: Hydromorphone 0.5mg/0.5ml inj IVP PRN ×3 (05:21→16:27)
[2017-12-18 08:00] VITALS: BP 116/85
[2017-12-18] MEDS: Eliquis 2.5mg tablet ORAL SCH ×2 (08:37→18:00)
[2017-12-18 12:00] VITALS: BP 121/71
[2017-12-18 16:00] VITALS: BP 120/82
[2017-12-18] MEDS ORDERED: ACETAMINOPHEN-1 EAC1 ORAL (18:18)
--- NOTE | 2017-12-19 10:07 | General Progress Note ---
Assessment/Plan Assessment/Plan 1. Left lower extremity deep vein thrombosis. --> At this time, the patient's hemoglobin currently 8.9. Did not recommend the patient to be changed with regard to her anticoagulation. --> She again complains of left lower extremity pain. At this time, continue Eliquis. --> The patient was recently admitted. --> consider to change to heparin drip, however, the patient does have an IVC filter which was noted. 2. Anemia of iron deficiency. --> Anemia workup completed. Iron 27, TIBC 400, % sat 7, levels are low so begin the patient on iron. -->If ferritin remains low, less than 50, begin the patient on iron. 3. Hyponatremia. Continue to closely monitor. Nephrology evaluation. 4. Pulmonary embolism, has been on the Eliquis recently. Consider heparin drip. 5. Anemia concerning for gastrointestinal bleed. Evaluate per Gastrointestinal Service. Subjective Date patient seen: Dec 18, 2017 Constitutional: Denies: no symptoms, chills, diaphoresis, fever, malaise, weakness, other HEENT: Denies: no symptoms, eye pain, blurred vision, tearing, double vision, ear pain, ear discharge, nose pain, nose congestion, throat pain, throat swelling, mouth pain, mouth swelling, other Cardiovascular: Denies: no symptoms, chest pain, edema, irregular heart rate, lightheadedness, palpitations, syncope, other Respiratory: Denies: no symptoms, cough, orthopnea, shortness of breath, SOB with excertion, SOB at rest, sputum, stridor, wheezing, other Gastrointestinal/Abdominal: Denies: no symptoms, abdomen distended, abdominal pain, black stools, tarry stools, blood in stool, constipated, diarrhea, difficulty swallowing, nausea, poor appetite, poor fluid intake, rectal bleeding , vomiting, other Genitourinary: Denies: no symptoms, burning, discharge, frequency, flank pain, hematuria, incontinence, pain, urgency, other Hematologic/Lymphatic: Reports: anemia Allergies: Coded Allergies: AMOXICILLIN (Verified Allergy, Unknown, 11/26/17) ASPIRIN (Verified Allergy, Unknown, 11/26/17) AZITHROMYCIN (Verified Allergy, Unknown, 11/26/17) CEPHALEXIN (Verified Allergy, Unknown, 11/26/17) CLAVULANIC ACID (Verified Allergy, Unknown, 11/26/17) IBUPROFEN (Verified Allergy, Unknown, 11/26/17) NSAIDS (NON-STEROIDAL ANTI-INFLAMMA (Verified Allergy, Unknown, 11/26/17) TRAMADOL (Verified Allergy, Unknown, 11/26/17) Subjective No acute events. No fever or chills. Objective Last 24 Hour Vital Signs Date Time Temp Pulse Resp B/P (MAP) Pulse Ox O2 Delivery O2 Flow Rate FiO2 12/18/17 16:57 97.7 12/18/17 16:27 97.7 12/18/17 16:00 98.4 71 20 120/82 95 Room Air 98.4 12/18/17 12:00 97.7 97 20 121/71 98 Room Air 97.7 12/18/17 11:09 97.7 Intake and Output 12/18/17 12/19/17 19:00 07:00 Intake Total 960 ml Balance 960 ml Intake Oral 960 ml # Voids 1 # Bowel Movements 1 Labs Test 12/16/17 15:30 12/16/17 18:50 12/17/17 08:00 White Blood Count 5.7 K/UL (4.8-10.8) 5.7 K/UL (4.8-10.8) Red Blood Count 4.81 M/UL (4.20-5.40) 3.92 M/UL (4.20-5.40) Hemoglobin 10.7 G/DL (12.0-16.0) 8.9 G/DL (12.0-16.0) Hematocrit 34.2 % (37.0-47.0) 28.3 % (37.0-47.0) Mean Corpuscular Volume 71 FL (80-99) 72 FL (80-99) Mean Corpuscular Hemoglobin 22.3 PG (27.0-31.0) 22.6 PG (27.0-31.0) Mean Corpuscular Hemoglobin Concent 31.4 G/DL (32.0-36.0) 31.3 G/DL (32.0-36.0) Red Cell Distribution Width 15.5 % (11.6-14.8) 15.3 % (11.6-14.8) Platelet Count 456 K/UL (150-450) 298 K/UL (150-450) Mean Platelet Volume 5.2 FL (6.5-10.1) 5.4 FL (6.5-10.1) Neutrophils (%) (Auto) 52.3 % (45.0-75.0) 46.6 % (45.0-75.0) Lymphocytes (%) (Auto) 39.7 % (20.0-45.0) 39.6 % (20.0-45.0) Monocytes (%) (Auto) 4.9 % (1.0-10.0) 9.9 % (1.0-10.0) Eosinophils (%) (Auto) 0.9 % (0.0-3.0) 2.6 % (0.0-3.0) Basophils (%) (Auto) 2.2 % (0.0-2.0) 1.4 % (0.0-2.0) Prothrombin Time 9.9 SEC (9.30-11.50) Prothromb Time International Ratio 0.9 (0.9-1.1) Activated Partial Thromboplast Time 20 SEC (23-33) Sodium Level 132 MMOL/L (136-145) 137 MMOL/L (136-145) Potassium Level 4.0 MMOL/L (3.5-5.1) 4.0 MMOL/L (3.5-5.1) Chloride Level 101 MMOL/L (98-107) 105 MMOL/L (98-107) Carbon Dioxide Level 26 MMOL/L (21-32) 25 MMOL/L (21-32) Anion Gap 5 mmol/L (5-15) 7 mmol/L (5-15) Blood Urea Nitrogen 9 mg/dL (7-18) 10 mg/dL (7-18) Creatinine 0.9 MG/DL (0.55-1.30) 0.9 MG/DL (0.55-1.30) Estimat Glomerular Filtration Rate > 60 mL/min (>60) > 60 mL/min (>60) Glucose Level 91 MG/DL (74-106) 100 MG/DL (74-106) Calcium Level 9.2 MG/DL (8.5-10.1) 8.8 MG/DL (8.5-10.1) Total Bilirubin 0.5 MG/DL (0.2-1.0) 0.3 MG/DL (0.2-1.0) Aspartate Amino Transf (AST/SGOT) 17 U/L (15-37) 23 U/L (15-37) Alanine Aminotransferase (ALT/SGPT) 26 U/L (12-78) 24 U/L (12-78) Alkaline Phosphatase 109 U/L (46-116) 92 U/L (46-116) Total Protein 7.9 G/DL (6.4-8.2) 7.0 G/DL (6.4-8.2) Albumin 3.3 G/DL (3.4-5.0) 2.8 G/DL (3.4-5.0) Globulin 4.6 g/dL 4.2 g/dL Albumin/Globulin Ratio 0.7 (1.0-2.7) 0.7 (1.0-2.7) Urine Color Pale yellow Urine Appearance Clear Urine pH 7 (4.5-8.0) Urine Specific Mathias 1.005 (1.005-1.035) Urine Protein Negative (NEGATIVE) Urine Glucose (UA) Negative (NEGATIVE) Urine Ketones Negative (NEGATIVE) Urine Occult Blood Negative (NEGATIVE) Urine Nitrite Negative (NEGATIVE) Urine Bilirubin Negative (NEGATIVE) Urine Urobilinogen Normal MG/DL (0.0-1.0) Urine Leukocyte Esterase 1+ (NEGATIVE) Urine RBC 0-2 /HPF (0 - 2) Urine WBC 0-2 /HPF (0 - 2) Urine Squamous Epithelial Cells Moderate /LPF (NONE/OCC) Urine Bacteria Few /HPF (NONE) Urine HCG, Qualitative Negative Iron Level 27 ug/dL (50-175) Total Iron Binding Capacity 400 ug/dL (250-450) Percent Iron Saturation 7 % (15-50) Unsaturated Iron Binding 373 ug/dL (112-346) Ferritin 13 NG/ML (8-388) Triglycerides Level 183 MG/DL (30-150) Cholesterol Level 134 MG/DL (< 200) LDL Cholesterol 75 mg/dL (<100) HDL Cholesterol 44 MG/DL (40-60) Cholesterol/HDL Ratio 3.0 (3.3-4.4) Thyroid Stimulating Hormone (TSH) 1.059 uiU/mL (0.358-3.740) Height (Feet): 5 Height (Inches): 1.00 Weight (Pounds): 230 Kleynberg,Herberth L. Dec 19, 2017 10:07
--- NOTE | 2017-12-19 13:03 | Diagnostic Imaging Report ---
APPROVED REPORT CPT Code: 82456 Present Symptoms Comments: Pain RIGHT LEG: Venous imaging reveals a patent deep venous system. There is no evidence of thrombus within the femoral, popliteal or tibial segments. The greater saphenous vein is also within normal limits. Doppler indicates normal spontaneous flow within these segments. LEFT LEG: Venous imaging reveals recanalized chronic thrombus in the superficial femoral to popliteal veins. Large collateral vein noted anterior to the superficial femoral artery. Imaging also reveals patency of the common femoral and calf veins. The greater saphenous vein is also within normal limits. Doppler indicates normal spontaneous flow within these segments. There is no evidence of acute deep vein thrombosis.
--- NOTE | 2017-12-19 20:19 | Cardiology Report ---
APPROVED REPORT EKG Measurement Heart [id number] MA 122P-9 [id number] Normal sinus rhythm Normal ECG
--- NOTE | 2017-12-20 14:55 | Discharge Summary ---
Discharge Summary Hospital Course Date of Admission Dec 16, 2017 at 21:59 Date of Discharge Dec 18, 2017 at 18:45 Admitting Diagnosis intractable back pain, DVT HPI Kay Dias is a 47 year old female who was admitted on Dec 16, 2017 at 21:59 for Intractable Back Pain/Deep Vein Thrombosis Hospital Course [id number] Discharge Discharge Disposition Patient was discharged to Home (01) Discharge Diagnoses: Leyda Jimenez NP Dec 20, 2017 14:55
--- NOTE | 2017-12-20 14:55 | Discharge Summary ---
Discharge Summary Hospital Course Date of Admission Dec 16, 2017 at 21:59 Date of Discharge Dec 18, 2017 at 18:45 Admitting Diagnosis intractable back pain, DVT HPI Kay Dias is a 47 year old female who was admitted on Dec 16, 2017 at 21:59 for Intractable Back Pain/Deep Vein Thrombosis Hospital Course [id number] Discharge Discharge Disposition Patient was discharged to Home (01) Discharge Diagnoses: Leyda Jimenez NP Dec 20, 2017 14:55
--- NOTE | 2017-12-21 06:45 | Discharge Summary 2 SIG ---
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 BRIEF HOSPITAL COURSE: The patient is a 47-year-old female with history of DVT, chronic back pain, presented to ER complaining of low back pain. She has chronic low back pain, but it had somewhat worsened. She had been on Eliquis for DVT and had noted increased pain to the right lower extremity. On evaluation at ED, CT of the lumbar spine with contrast showed no acute injury, however, with grade 1 spondylolisthesis on L4. EKG did not show any acute injury. Blood work did not show leukocytosis. Hemoglobin was 10 and hematocrit was 34. She had venous duplex of the lower extremity, which showed a recanalized chronic thrombus in the left superficial femoral to popliteal vein, negative for acute DVT. The patient also had an IVC filter in place. Anemia workup done showed low iron levels. She was started on iron supplements. She was eventually discharged home with home health. FINAL DIAGNOSES: 1. Deep venous thrombosis of the lower extremity. 2. Intractable back pain. 3. Iron-deficiency anemia. 4. Hyponatremia. 5. Pulmonary embolism, on Eliquis. 6. Anemia concerning for GI bleed. DISPOSITION: The patient was discharged home to continue anticoagulation. DISCHARGE MEDICATIONS: Refer to medication list. DISCHARGE INSTRUCTIONS: Follow up with PMD in a week. Mich Worrell M.D. I have been assigned to dictate discharge summary on this account and I was not involved in the patient's management. Leyda Jimenez N.P. DR: Wesley JOB#: [id number] CC: ASHA
[2017-12-24] MEDS ORDERED: Eliquis 2.5mg tablet ORAL SCH (18:00)
== END 2017-12-18 18:45 | disposition home or self-care (01) | DRG 197 ==
LOC: EMR 14:25 → 3E 21:59 → EDBEDREQ 22:09
DX: I82.502 Chronic embolism and thrombosis of unspecified deep veins of left lower extremity (principal); E87.1 Hypo-osmolality and hyponatremia; M79.605 Pain in left leg; D50.9 Iron deficiency anemia, unspecified; G89.29 Other chronic pain; M43.16 Spondylolisthesis, lumbar region; Z86.711 Personal history of pulmonary embolism; Z88.6 Allergy status to analgesic agent; Z88.1 Allergy status to other antibiotic agents; Z79.01 Long term (current) use of anticoagulants
CPT/HCPCS: 36415; 72132; 80053; 80061; 81001; 81025; 82728; 83540; 83550; 84443; 85025; 85610; 85730; 87081; 93005; 93970; 99285; J2405

== ENCOUNTER 2018-02-15 19:25 | Emergency (ER) | payer MEDICAID ==
[~2018-02-15] VITALS: Ht 154.9 cm; Wt 106.6 kg
[~2018-02-15 19:25] MED LIST changes: +ACETAMINOPHEN-1 EAC1 ORAL; +GABAPENTIN600 MG ORAL; +METOPROLOL SUCC50 MG ORAL; +OMEPRAZOLE40 M1 ORAL
[2018-02-15 21:00] VITALS: BP 125/86
--- NOTE | 2018-02-15 21:09 | Emergency Room Report ---
History of Present Illness General Chief Complaint: Pain Source: Patient Present Illness HPI Patient is a 47-year-old female who presented after increased left calf pain. Patient gradual onset of symptoms. She reports having pain for several weeks. Patient states that she has been having pain worse with ambulation. She reports having prior history of DVT. She states she has an IVC filter. Pain is worse with plantar flexion. Sharp in nature. Allergies: Coded Allergies: AMOXICILLIN (Verified Allergy, Unknown, 02/15/18) ASPIRIN (Verified Allergy, Unknown, 02/15/18) AZITHROMYCIN (Verified Allergy, Unknown, 02/15/18) CEPHALEXIN (Verified Allergy, Unknown, 02/15/18) CLAVULANIC ACID (Verified Allergy, Unknown, 02/15/18) IBUPROFEN (Verified Allergy, Unknown, 02/15/18) NSAIDS (NON-STEROIDAL ANTI-INFLAMMA (Verified Allergy, Unknown, 02/15/18) TRAMADOL (Verified Allergy, Unknown, 02/15/18) Patient History Past Medical History: see triage record Last Menstrual Period: 02/08/18 Now: No Reviewed Nursing Documentation: PMH: Agreed; PSxH: Agreed Nursing Documentation-PMH Past Medical History: No History, Except For Hx Cardiac Problems: Yes - Blood clots to both legs, and lungs. Hx Cancer: No Hx Gastrointestinal Problems: No Hx Neurological Problems: No Review of Systems All Other Systems: negative except mentioned in HPI Physical Exam Vital Signs Date Time Temp Pulse Resp B/P (MAP) Pulse Ox O2 Delivery O2 Flow Rate FiO2 02/15/18 20:55 97.7 98 16 125/86 97 Room Air 97.7 General Appearance: well appearing, no apparent distress, alert, GCS 15, Chronically Ill Head: normocephalic, atraumatic ENT: hearing grossly normal, normal voice Neck: full range of motion, supple Respiratory: chest non-tender, lungs clear, normal breath sounds, no respiratory distress, speaking full sentences Gastrointestinal: normal inspection, non tender Musculoskeletal: normal inspection, other - left side medial calf muscle defect without erythema, calf circumference equal Neurologic: normal inspection, alert, repair cameraman III-XII nml as tested, other - wheelchair, oriented Psychiatric: mood/affect normal Skin: no rash Medical Decision Making Diagnostic Impression: Primary Impression: Strain of calf muscle ER Course Patient presented for left calf pain. Differential diagnosis included was not limited to muscle tear, Manning cyst, DVT, fracture among others. Patient has a benign exam and does not appear to require any further imaging or laboratory testing at this time patient appears to have a muscular injury. Patient is a already anticoagulated and has an IVC filter. The patient was given pain medications and advised to follow-up with Dr. scott The patient is advised to follow up with primary care doctor in 1-2 days. Patient is advised to return if any worsening condition or if any changes in status that are concerning. This report is dictated with [employer] transfer knitter software which may occasionally lead to discrepancies related to use of this software. Last Vital Signs Date Time Temp Pulse Resp B/P (MAP) Pulse Ox O2 Delivery O2 Flow Rate FiO2 02/15/18 20:55 97.7 98 16 125/86 97 Room Air 97.7 Status: improved Disposition: HOME, SELF-CARE Condition: Stable Regis Johnson Feb 15, 2018 21:09
[2018-02-15] MEDS ORDERED: NORCO 10-325 T1 EACH ORAL (21:10)
[2018-02-15] MEDS ORDERED: HYDROcodone/Acetamin 10/325 tab ORAL ONE (21:15)
[2018-02-15 21:25] VITALS: BP 125/86
== END 2018-02-15 21:50 | disposition home or self-care (01) ==
LOC: EMR 21:48
DX: S86.112A Strain of other muscle(s) and tendon(s) of posterior muscle group at lower leg level, left leg, initial encounter (principal); Z86.718 Personal history of other venous thrombosis and embolism; Z88.1 Allergy status to other antibiotic agents; Z88.6 Allergy status to analgesic agent; X58.XXXA Exposure to other specified factors, initial encounter; Y92.9 Unspecified place or not applicable
CPT/HCPCS: 99282

== ENCOUNTER 2018-02-19 22:15 | Emergency (ER) | payer MEDICAID ==
[~2018-02-19] VITALS: Ht 154.9 cm; Wt 106.6 kg
[~2018-02-19 22:15] MED LIST changes: +NORCO 10-325 T1 EACH ORAL
[2018-02-19] MEDS ORDERED: Norco 5mg/325mg tab ORAL ONE (22:45)
[2018-02-19] MEDS ORDERED: Morphine Sulfate 4mg/ml Inj IM ONE (23:15)
[2018-02-19 23:20] VITALS: BP 130/84
[2018-02-19 23:27] VITALS: BP 130/84
--- NOTE | 2018-02-23 07:54 | Emergency Room Report ---
History of Present Illness General Chief Complaint: Pain Source: Patient Present Illness HPI 47-year-old female presents ED complaining of left leg pain and swelling. Patient states pain is a 10 out of 10, sharp, nonradiating. Patient states that she has history of DVT and PE. Patient is on Eliquis. Patient states she was recently seen here and treated. Patient states her pain medications are not helping. No other aggravating relieving factors. Denies any other associated symptoms Allergies: Coded Allergies: AMOXICILLIN (Verified Allergy, Unknown, 02/15/18) ASPIRIN (Verified Allergy, Unknown, 02/15/18) AZITHROMYCIN (Verified Allergy, Unknown, 02/15/18) CEPHALEXIN (Verified Allergy, Unknown, 02/15/18) CLAVULANIC ACID (Verified Allergy, Unknown, 02/15/18) IBUPROFEN (Verified Allergy, Unknown, 02/15/18) NSAIDS (NON-STEROIDAL ANTI-INFLAMMA (Verified Allergy, Unknown, 02/15/18) TRAMADOL (Verified Allergy, Unknown, 02/15/18) Patient History Past Medical History: other - PE Past Surgical History: none Pertinent Family History: none Social History: Denies: smoking, alcohol use, drug use Now: No Immunizations: UTD Reviewed Nursing Documentation: PMH: Agreed; PSxH: Agreed Nursing Documentation-PMH Hx Cardiac Problems: Yes - Blood clots to both legs, and lungs. Hx Cancer: No Hx Gastrointestinal Problems: No Hx Neurological Problems: No Review of Systems All Other Systems: negative except mentioned in HPI Physical Exam Vital Signs Date Time Temp Pulse Resp B/P (MAP) Pulse Ox O2 Delivery O2 Flow Rate FiO2 02/19/18 22:25 97.9 106 16 138/87 95 Room Air 97.9 Sp02 EP Interpretation: reviewed, normal General Appearance: no apparent distress, alert, GCS 15, non-toxic, obese Head: normocephalic, atraumatic Eyes: bilateral eye normal inspection, bilateral eye PERRL ENT: hearing grossly normal, normal pharynx, no angioedema, normal voice Neck: full range of motion, supple/symm/no masses Respiratory: chest non-tender, lungs clear, normal breath sounds, speaking full sentences Cardiovascular #1: regular rate, rhythm, no edema Cardiovascular #2: 2+ carotid (R), 2+ carotid (L), 2+ radial (R), 2+ radial (L) , 2+ dorsalis pedis (R), 2+ dorsalis pedis (L) Gastrointestinal: normal bowel sounds, non tender, soft, non-distended, no guarding, no rebound Rectal: deferred Genitourinary: normal inspection, no CVA tenderness Musculoskeletal: back normal, gait/station normal, normal range of motion, calf tenderness Neurologic: alert, oriented x3, responsive, motor strength/tone normal, sensory intact, speech normal Psychiatric: judgement/insight normal, memory normal, mood/affect normal, no suicidal/homicidal ideation Reflexes: 3+ bicep (R), 3+ bicep (L), 3+ tricep (R), 3+ tricep (L), 3+ knee (R) , 3+ knee (L) Skin: normal color, no rash, warm/dry, well hydrated Lymphatic: no adenopathy Medical Decision Making Diagnostic Impression: Primary Impression: Calf pain Qualified Codes: M79.662 - Pain in left lower leg Additional Impression: Drug-seeking behavior ER Course 47-year-old female presents ED complaining of left calf pain. History of DVT and PE DifferentialDVT, cellulitis, muscle strain After initial history physical exam reveals a female in no acute distress. There is no noticeable swelling of the left calf versus the right calf. No induration or erythema. Lungs clear. Vital stable. I reviewed EMR. Patient has been here multiple times for similar presentation. I admitted the patient on first visit here. Workup included no evidence of PE. Patient has been admitted recently for similar symptoms and workup did not show evidence of PE Patient is on Eliquis, has IVC filter. Likelihood of PE is low. My suspicion is low given recent workups have been negative. During hospital course patient has requested high levels of pain medication. Concern for drug-seeking behavior I agree provide patient with pain medication here but I will not provide any prescriptions. I do not believe patient requires additional workup at this time Diagnosis - calf pain, drug-seeking behavior Last Vital Signs Date Time Temp Pulse Resp B/P (MAP) Pulse Ox O2 Delivery O2 Flow Rate FiO2 02/19/18 23:27 97.9 98 15 130/84 98 Room Air 98.0 Status: improved Disposition: HOME, SELF-CARE Condition: Stable Patient Instructions: Intermittent Claudication Danny Chacon MD February 23, 2018 07:54
== END 2018-02-19 23:27 | disposition home or self-care (01) ==
LOC: EMR 22:38
DX: M79.662 Pain in left lower leg (principal); Z76.5 Malingerer [conscious simulation]; Z88.6 Allergy status to analgesic agent; Z88.0 Allergy status to penicillin; Z88.8 Allergy status to other drugs, medicaments and biological substances; Z86.711 Personal history of pulmonary embolism
CPT/HCPCS: 96372; 99283; J2270

== ENCOUNTER 2018-03-14 18:18 | Emergency (ER) | payer MEDICAID ==
[~2018-03-14] VITALS: Ht 154.9 cm; Wt 106.6 kg
[2018-03-14 18:39] VITALS: BP 141/90
[2018-03-14] MEDS ORDERED: Morphine Sulfate 4mg/ml Inj IM ONE (19:00)
[2018-03-14 19:30] VITALS: BP 0/0
--- NOTE | 2018-03-14 20:55 | Emergency Room Report ---
History of Present Illness General Chief Complaint: Pain Source: Patient, Medical Record Present Illness HPI 47-year-old female presents ED complaining of left leg pain. Patient has history of chronic DVT in her leg. On Eliquis. Patient states that she's had this pain on and off for many months now. Went to urgent care yesterday and they did ultrasound of her leg and he states that she had a DVT. Denies chest pain or shortness of breath. Pain is throbbing, 10 out of 10, nonradiating. No other aggravating or relieving factors. Denies any other associated symptoms Allergies: Coded Allergies: AMOXICILLIN (Verified Allergy, Unknown, 02/15/18) ASPIRIN (Verified Allergy, Unknown, 02/15/18) AZITHROMYCIN (Verified Allergy, Unknown, 02/15/18) CEPHALEXIN (Verified Allergy, Unknown, 02/15/18) CLAVULANIC ACID (Verified Allergy, Unknown, 02/15/18) IBUPROFEN (Verified Allergy, Unknown, 02/15/18) NSAIDS (NON-STEROIDAL ANTI-INFLAMMA (Verified Allergy, Unknown, 02/15/18) TRAMADOL (Verified Allergy, Unknown, 02/15/18) Patient History Past Medical History: other - DVT Past Surgical History: none Pertinent Family History: none Social History: Denies: smoking, alcohol use, drug use Now: No Immunizations: UTD Reviewed Nursing Documentation: PMH: Agreed; PSxH: Agreed Nursing Documentation-PMH Past Medical History: No History, Except For Hx Cardiac Problems: Yes - Blood clots to both legs, and lungs. Hx Cancer: No Hx Gastrointestinal Problems: No Hx Neurological Problems: No Review of Systems All Other Systems: negative except mentioned in HPI Physical Exam Vital Signs Date Time Temp Pulse Resp B/P (MAP) Pulse Ox O2 Delivery O2 Flow Rate FiO2 03/14/18 18:29 97.8 108 18 141/90 100 Room Air 97.9 Sp02 EP Interpretation: reviewed, normal General Appearance: no apparent distress, alert, GCS 15, non-toxic, obese Head: normocephalic Eyes: bilateral eye normal inspection, bilateral eye PERRL ENT: normal ENT inspection Neck: normal inspection Respiratory: chest non-tender, lungs clear, normal breath sounds, speaking full sentences Cardiovascular #1: regular rate, rhythm, no edema Gastrointestinal: normal inspection Rectal: deferred Genitourinary: no CVA tenderness Musculoskeletal: normal inspection, tender - LLE Neurologic: alert, oriented x3, responsive, motor strength/tone normal, sensory intact, speech normal Psychiatric: normal inspection Skin: normal inspection Lymphatic: normal inspection Medical Decision Making Diagnostic Impression: Primary Impression: Chronic deep vein thrombosis (DVT) Qualified Codes: I82.502 - Chronic embolism and thrombosis of unspecified deep veins of left lower extremity Additional Impression: Drug-seeking behavior ER Course Hospital Course 47-year-old female present ED complaining of left calf pain. h/o DVT Differential diagnoses include: DVT, cellulitis, contusion, abscess Clinical course Patient placed on stretcher after initial history and physical I ordered pain medication and DVT ultrasound. Doppler ultrasound shows evidence of chronic DVT recannulized, no acute DVT This ultrasound finding is same as the previous ultrasound done in January. I seen this patient multiple times myself. Concern for opioid dependence I. I feel this is a highly complex case requiring extensive working including EKG/Rhythm strip, Xray/CT/US, Blood/urine lab work, repeat exams while in ED, and administration of strong opiates/narcotics for pain control, admission to hospital or close patient follow up. Diagnosis - chronic DVT, drug-seeking behavior Stable and discharged to home. Followup with PMD. Return to ED if symptoms recur or worsen CT/MRI/US Diagnostic Results CT/MRI/US Diagnostic Results : Imaging Test Ordered: Doppler US Impression LEFT LEG: Venous imaging reveals recanalized chronic thrombus in the superficial femoral to popliteal veins. Large collateral vein noted anterior to the superficial femoral artery. Imaging also reveals patency of the common femoral and calf veins. The greater saphenous vein is also within normal limits. Doppler indicates normal spontaneous flow within these segments. There is no evidence of acute deep vein thrombosis. Last Vital Signs Date Time Temp Pulse Resp B/P (MAP) Pulse Ox O2 Delivery O2 Flow Rate FiO2 03/14/18 19:30 0/0 03/14/18 19:22 97.9 03/14/18 18:39 18 100 Room Air 03/14/18 18:29 108 Status: improved Disposition: HOME, SELF-CARE Condition: Stable Patient Instructions: Deep Vein Thrombosis Danny Chacon MD March 14, 2018 20:55
--- NOTE | 2018-03-20 09:36 | Diagnostic Imaging Report ---
APPROVED REPORT CPT Code: 00340 Present Symptoms Comments: LEFT LEGS PAIN. LEFT LEG: Imaging reveals a patent deep venous system bilaterally. Large collateral vein noted anterior to superficial femoral artery.There is no evidence of thrombus within the femoral, popliteal or tibial segments. The greater saphenous veins are also within normal limits. Doppler indicates normal spontaneous flow within these segments.
== END 2018-03-14 19:30 | disposition home or self-care (01) ==
LOC: EMR 18:42
DX: I82.5Z2 Chronic embolism and thrombosis of unspecified deep veins of left distal lower extremity (principal); Z76.5 Malingerer [conscious simulation]; Z88.6 Allergy status to analgesic agent; Z88.0 Allergy status to penicillin; Z88.8 Allergy status to other drugs, medicaments and biological substances
CPT/HCPCS: 93970; 96372; 99284; J2270

== ENCOUNTER 2018-03-25 03:36 | Emergency (ER) | payer MEDICAID ==
[~2018-03-25] VITALS: Ht 154.9 cm; Wt 106.6 kg
[2018-03-25 04:02] VITALS: BP 110/70
[2018-03-25 04:20] VITALS: BP 0/0
--- NOTE | 2018-03-25 04:24 | Emergency Room Report ---
History of Present Illness General Chief Complaint: Pain Source: Patient Present Illness HPI Patient initially presents with complaints of calf pain on the left side Reports that she has been diagnosed with a superficial calf clot Patient also reports she had increased redness in the lower abdominal region Reports pain is 8 out of 10 to the skin area Denies any chest pain or shortness of breath denies any fall or trauma Son reports that they are from [place] and have been traveling a lot which has made the area worse Allergies: Coded Allergies: AMOXICILLIN (Verified Allergy, Unknown, 02/15/18) ASPIRIN (Verified Allergy, Unknown, 02/15/18) AZITHROMYCIN (Verified Allergy, Unknown, 02/15/18) CEPHALEXIN (Verified Allergy, Unknown, 02/15/18) CLAVULANIC ACID (Verified Allergy, Unknown, 02/15/18) IBUPROFEN (Verified Allergy, Unknown, 02/15/18) NSAIDS (NON-STEROIDAL ANTI-INFLAMMA (Verified Allergy, Unknown, 02/15/18) TRAMADOL (Verified Allergy, Unknown, 02/15/18) Patient History Past Medical History: see triage record Pertinent Family History: none Last Menstrual Period: 03/18/19 Now: No Reviewed Nursing Documentation: PMH: Agreed; PSxH: Agreed Nursing Documentation-PMH Hx Cardiac Problems: Yes - Blood clots to both legs, and lungs. Hx Cancer: No Hx Gastrointestinal Problems: No Hx Neurological Problems: No Review of Systems All Other Systems: negative except mentioned in HPI Physical Exam Vital Signs Date Time Temp Pulse Resp B/P (MAP) Pulse Ox O2 Delivery O2 Flow Rate FiO2 03/25/18 03:49 98.2 109 18 110/70 94 Room Air 98.2 Sp02 EP Interpretation: reviewed, normal General Appearance: well appearing, no apparent distress Head: normocephalic, atraumatic Eyes: bilateral eye PERRL, bilateral eye EOMI ENT: normal pharynx, no angioedema Neck: supple Respiratory: lungs clear Cardiovascular #1: regular rate, rhythm Gastrointestinal: other - Increased erythema in the lower fold of the abdomen, mild clear discharge was noted as well otherwise no fluctuance no tracking Genitourinary: no CVA tenderness Musculoskeletal: normal inspection Neurologic: alert, oriented x3 Skin: other - As above Medical Decision Making Diagnostic Impression: Primary Impression: Calf pain Additional Impression: dermatitis ER Course Patient has previous history of documented DVT Has been on blood thinners Patient's abdominal exam reveals evidence similar to he rash No obvious fluctuance or abscess Patient requesting prescription medication She was notified that on [employer] system She has multiple opiates prescribed by multiple different prescribers This is concerning from the emergency room standpoint And she requires improved outpatient eval Patient also resting comfortably in the bed however requesting morphine injection And was requested to have appropriate outpatient follow-up Last Vital Signs Date Time Temp Pulse Resp B/P (MAP) Pulse Ox O2 Delivery O2 Flow Rate FiO2 03/25/18 04:02 98.2 109 18 110/70 94 Room Air 98.2 Status: unchanged Disposition: HOME, SELF-CARE Condition: Stable Patient Instructions: Deep Vein Thrombosis, Rash, [id number] Additional Instructions: Please follow-up with primary physician in the next 2-3 days, consider such clinics as [facility] with significant resources for continued outpatient eval Shala Rock DO Mar 25, 2018 04:24
== END 2018-03-25 04:20 | disposition home or self-care (01) ==
LOC: EMR 04:11
DX: M79.662 Pain in left lower leg (principal); L30.9 Dermatitis, unspecified; Z86.718 Personal history of other venous thrombosis and embolism; Z79.01 Long term (current) use of anticoagulants; Z88.0 Allergy status to penicillin; Z88.6 Allergy status to analgesic agent; Z88.8 Allergy status to other drugs, medicaments and biological substances
CPT/HCPCS: 99283

== ENCOUNTER 2019-06-20 21:52 | Emergency (ER) | payer MEDICAID ==
[~2019-06-20] VITALS: Ht 154.9 cm; Wt 99.8 kg
--- NOTE | 2019-06-20 22:10 | NUR ---
ER Nurse Note: Pt wheelchaired to bedside c/o LT leg swelling and pain since 8/30 AM. Pt stated 9/10 sharp pain with slight touch. Pt cannot lift LT leg; able to raise RT leg with no difficulty. Pedial pulses felt RT and LT foot. HX of DVT; last one 2007. No difficulty breathing, no SOB. VSS. Will continue to motnior.
--- NOTE | 2019-06-20 22:25 | Emergency Room Report ---
History of Present Illness General Chief Complaint: Edema Source: Patient Present Illness HPI Disclaimer: Please note that this report is being documented using DRAGON technology. This can lead to erroneous entry secondary to incorrect interpretation by the dictating instrument. HPI: This is a 49-year-old female with history of obesity, prior PE status post IVC filter, chronic DVT left lower extremity on Eliquis presenting today with worsening left lower extremity pain. Symptoms have been worsening over the past 2 days and notes a progressive increase in size of the left calf as well as an aching pain that does not radiate. Does not recall any recent injury. She has expressed shortness of breath both with exertion and at rest but denies chest pain. Patient states that she is typically compliant with her morning Eliquis dose but frequently misses her afternoon dose because she forgets. She denies any headache, head injury, neck or back pain, abdominal pain, nausea, vomiting, diarrhea, dysuria. PMH: Hypertension, hyperlipidemia, PE, DVT, obesity PSH: IVC filter Allergies: multiple antibiotics, ibuprofen, Toradol Social Hx: Denies drug or alcohol use Allergies: Coded Allergies: AMOXICILLIN (Verified Allergy, Unknown, 02/15/18) ASPIRIN (Verified Allergy, Unknown, 02/15/18) AZITHROMYCIN (Verified Allergy, Unknown, 02/15/18) CEPHALEXIN (Verified Allergy, Unknown, 02/15/18) CLAVULANIC ACID (Verified Allergy, Unknown, 02/15/18) IBUPROFEN (Verified Allergy, Unknown, 02/15/18) NSAIDS (NON-STEROIDAL ANTI-INFLAMMA (Verified Allergy, Unknown, 02/15/18) TRAMADOL (Verified Allergy, Unknown, 02/15/18) Nursing Documentation-PMH Past Medical History: No History, Except For Hx Cardiac Problems: Yes - Blood clots to both legs, and lungs. Hx Cancer: No Hx Gastrointestinal Problems: No Hx Neurological Problems: No Review of Systems All Other Systems: negative except mentioned in HPI Physical Exam Vital Signs Date Time Temp Pulse Resp B/P (MAP) Pulse Ox O2 Delivery O2 Flow Rate FiO2 06/20/19 22:06 97.2 95 14 109/65 (80) 94 Room Air General: Awake and alert, appears uncomfortable, writhing in pain in the bed during my exam HEENT: NC/AT. EOMI. Cardiovascular: RRR. S1 and S2 normal. No murmur appreciated Resp: Normal work of breathing. No cough, wheezing or crackles appreciated Abdomen: Abdomen is soft, nondistended, obese. Nontender Skin: Intact. No abrasions, laceration or rash over the exposed skin MSK: Normal tone and bulk. Moving all extremities. Left calf is enlarged as compared to right, tender to palpation, positive Homans sign. No overlying erythema, no skin breakdown, no abrasions, no lacerations. 2+ DP pulses bilaterally Neuro: Awake and alert. Mentating appropriately. Medical Decision Making Diagnostic Impression: Primary Impression: Calf pain Additional Impressions: Shortness of breath Eloped from emergency department ER Course 49-year-old female with a history of PE/DVT status post IVC filter and on Eliquis though sometimes noncompliant resents for evaluation of worsening calf pain. On arrival, the patient was started on PE and ACS work-up including EKG, labs, CTA of the chest and ultrasound of the lower extremities were ordered. It was difficult to establish IV access given the patient's poor vasculature and the patient became increasingly more frustrated in the emergency department over her left leg pain. She was given intramuscular Toradol and ordered oral narcotic pain medication however she refused both stating that she would only respond to Dilaudid. Review of the patient's medical chart shows similar behavior on prior ED visits. [facility] database shows the patient has a prescription for hydrocodone that she did not mention on her HPI. Labs show baseline anemia at 9.1 consistent with the patient's prior visits chemistry panel largely unremarkable. Troponin is negative. BN peptide 172 which is decreased from previous visits. The patient refused transfer to CT scan and lower extremity Doppler. She eloped from the emergency department. Laboratory Tests Test 06/20/19 22:30 White Blood Count 6.0 K/UL (4.8-10.8) Red Blood Count 4.08 M/UL (4.20-5.40) L Hemoglobin 9.1 G/DL (12.0-16.0) L Hematocrit 29.8 % (37.0-47.0) L Mean Corpuscular Volume 73 FL (80-99) L Mean Corpuscular Hemoglobin 22.2 PG (27.0-31.0) L Mean Corpuscular Hemoglobin Concent 30.4 G/DL (32.0-36.0) L Red Cell Distribution Width 14.2 % (11.6-14.8) Platelet Count 372 K/UL (150-450) Mean Platelet Volume 5.1 FL (6.5-10.1) L Neutrophils (%) (Auto) 41.7 % (45.0-75.0) L Lymphocytes (%) (Auto) 41.5 % (20.0-45.0) Monocytes (%) (Auto) 10.3 % (1.0-10.0) H Eosinophils (%) (Auto) 5.0 % (0.0-3.0) H Basophils (%) (Auto) 1.5 % (0.0-2.0) Sodium Level 139 MMOL/L (136-145) Potassium Level 4.2 MMOL/L (3.5-5.1) Chloride Level 106 MMOL/L (98-107) Carbon Dioxide Level 28 MMOL/L (21-32) Anion Gap 5 mmol/L (5-15) Blood Urea Nitrogen 15 mg/dL (7-18) Creatinine 1.1 MG/DL (0.55-1.30) Estimate Glomerular Filtration Rate 53.3 mL/min (>60) Glucose Level 109 MG/DL (74-106) H Calcium Level 8.7 MG/DL (8.5-10.1) Total Bilirubin 0.2 MG/DL (0.2-1.0) Aspartate Amino Transferase (AST) 32 U/L (15-37) Alanine Aminotransferase (ALT) 28 U/L (12-78) Alkaline Phosphatase 95 U/L (46-116) Total Creatine Kinase 73 U/L (26-308) Creatine Kinase MB 0.6 NG/ML (0.0-3.6) Creatine Kinase MB Relative Index 0.8 Troponin I 0.000 ng/mL (0.000-0.056) Pro-B-Type Natriuretic Peptide 172 pg/mL (0-125) H Total Protein 7.9 G/DL (6.4-8.2) Albumin 3.2 G/DL (3.4-5.0) L Globulin 4.7 g/dL Albumin/Globulin Ratio 0.7 (1.0-2.7) L EKG Diagnostic Results EKG Time: 22:37 EP Interpretation: Normal sinus rhythm Rate: normal ST Segments: no acute changes Other Impression Normal axis, normal intervals, no acute ischemic changes. Right bundle branch block pattern V2 only. No evidence of strain Rhythm Strip Diag. Results Rhythm Strip Time: 22:37 EP Interpretation: yes Rate: 90s Rhythm: NSR, no PVC's, no ectopy Last Vital Signs Date Time Temp Pulse Resp B/P (MAP) Pulse Ox O2 Delivery O2 Flow Rate FiO2 06/20/19 22:06 97.2 95 14 109/65 (80) 94 Room Air Disposition: ELOPED Condition: Stable Cristofer Marie MD Jun 20, 2019 22:25
[2019-06-20] MEDS ORDERED: Isovue-370 150ml vial INJ PRN (22:30)
--- NOTE | 2019-06-20 22:40 | NUR ---
ER Nurse Note: Zane, son, at bedside. Zane is sitting in pt's wheelchair but is at risk for falling because Zane is slouching forward and falling asleep. Per charge nurse, primary nurse, other staff members, asked Zane to sit in waiting room to rest comfortably. Pt and Zane refused. Offered Zane coffee, water, juuice; refused. Offered coffee several times, Zane accepted. Pt refusing pain meds and refusing all treatment untill pt's needs are met. ERMD notified and wants to talk to pt. Pt is becoming impatient. Pt keeps shifting eyes, licking lips, looking at son. Pt VSS, RA, no signs of resp distress. Will continue to montior.
[2019-06-20 22:41] VITALS: BP 109/65
[2019-06-20 22:54] LABS: BASOPHILS % (AUTO) 1.5 % (0.0-2.0); HEMATOCRIT 29.8 % (37.0-47.0); HEMOGLOBIN 9.1 G/DL (12.0-16.0); LYMPHOCYTES % (AUTO) 41.5 % (20.0-45.0); MEAN CORPUSCULAR VOLUME 73 FL (80-99); MONOCYTES % (AUTO) 10.3 % (1.0-10.0); NEUTROPHILS % (AUTO) 41.7 % (45.0-75.0); PLATELET COUNT 372 K/UL (150-450); RED BLOOD COUNT 4.08 M/UL (4.20-5.40); RED CELL DISTRIBUTION WIDTH 14.2 % (11.6-14.8)
--- NOTE | 2019-06-20 22:55 | NUR ---
ED Nurse Note: attempted to establish iv access [address] w/ iv contrast by using ultrasound, pt unable to stay still and constantly moving arm, pt reports pain on left ac site and refusing, pt advised there is only an appropriate open access at left ac for 20g, pt states "it hurts too much and you need to go up or down." unable to establish iv access after one attempt, pt unable stay still, ermd notified.
[2019-06-20 22:58] LABS: ANION GAP 5 mmol/L (5-15); BLOOD UREA NITROGEN 15 mg/dL (7-18); CALCIUM 8.7 MG/DL (8.5-10.1); CARBON DIOXIDE 28 MMOL/L (21-32); CHLORIDE 106 MMOL/L (98-107); CREATININE 1.1 MG/DL (0.55-1.30); POTASSIUM 4.2 MMOL/L (3.5-5.1); SODIUM 139 MMOL/L (136-145)
[2019-06-20] MEDS ORDERED: Ketorolac 30mg Inj IV ONE (23:00)
[2019-06-20] MEDS ORDERED: HYDROcodone/Acetamin 7.5/325 tab ORAL ONE (23:15)
[2019-06-20 23:16] LABS: ALANINE AMINOTRANSFERASE 28 U/L (12-78); ALBUMIN 3.2 G/DL (3.4-5.0); ALBUMIN/GLOBULIN RATIO 0.7 (1.0-2.7); ALKALINE PHOSPHATASE 95 U/L (46-116); ASPARTATE AMINO TRANSFERASE 32 U/L (15-37); BILIRUBIN,TOTAL 0.2 MG/DL (0.2-1.0); CKMB 0.6 NG/ML (0.0-3.6); CREATINE KINASE 73 U/L (26-308)
--- NOTE | 2019-06-20 23:19 | NUR ---
ER Nurse Note: Pt is refusing all treatment. ER MD prescribed Toradol; pt refused stating "she cannot take it because she is allergic to NSAIDs and she is on blood thinners so there is a reaction when I take it together." ERMD aware and prescribed Pinole; pt stated she cannot take Pinole because "Pinole does not work and I will be in too much pain." Pt refused US and CTA. ERMD notified. Security called and at bedside; charge nurse aware and at pt side. Two RN; Dexter, broadcast maintenance technician; biometric fingerprinting technician at bedside and heard pt is refusing all treatment without seeing MD. Pt stated because she is not getting getting better she will leave AMA. Risks were explained to pt; pt stated "I don't care, I am going to leave". ERMD made aware and wanted to talk to pt before leaving; explained to pt that MD will talk to pt before leaving AMA, pt and son will not wait for MD and left. Pt refused to sign AMA form. IV removed; site clean and bandaged. Pt walked to wheelchair at bedside; left without seeing MD.
[2019-06-20 23:20] VITALS: BP 109/65
== END 2019-06-20 23:30 | disposition left against medical advice (07) ==
LOC: EMR 22:30
DX: M79.662 Pain in left lower leg (principal); R06.02 Shortness of breath; I10 Essential (primary) hypertension; E78.5 Hyperlipidemia, unspecified; Z86.711 Personal history of pulmonary embolism; Z86.718 Personal history of other venous thrombosis and embolism; Z88.0 Allergy status to penicillin; Z88.6 Allergy status to analgesic agent; Z88.5 Allergy status to narcotic agent; Z88.1 Allergy status to other antibiotic agents
CPT/HCPCS: 36415; 80053; 82550; 82553; 83880; 84484; 85025; 93005; 99284